=== PATIENT | female | born 1960 | race Caucasian/White ===

== ENCOUNTER → 2022-06-30 16:21 | Outpatient (CLI) | payer MEDICAID, SELFPAY ==
[2022-06-30 18:22] LABS: Basophils # 0.1 K/mm3 (0-0.2); Basophils % 0.5 % (0.1-2.0); Eosinophils # 0.1 K/mm3 (0.0-0.4); Eosinophils % 0.7 % (0.1-12.0); Hematocrit 41.1 % (37.0-47.0); Hemoglobin 13.5 g/dL (12.2-16.2); Lymphocytes # 1.6 K/mm3 (0.7-4.5); Lymphocytes % 13.2 % (10-50); Mean Corpuscular HGB Conc 32.7 g/dL (31.8-35.4); Mean Corpuscular Hemoglobin 28.9 pg (27.0-31.2); Mean Corpuscular Volume 88.3 fl (81-99); Mean Platelet Volume 8.1 fl (7.4-10.4); Monocytes # 0.7 K/mm3 (0.1-1.0); Monocytes % 5.6 % (1.7-9.3); Neutrophils # 9.4 K/mm3 (1.8-7.8); Platelet Count 428 K/mm3 (142-424); Red Blood Count 4.66 M/mm3 (4.20-5.40); Red Cell Distribution Width 14.5 % (11.5-17.5); White Blood Count 11.7 K/mm3 (4.8-10.8)
[2022-06-30 18:34] LABS: Alanine Aminotransferase 26 U/L (12-78); Albumin Level 4.3 g/dl (3.5-5.0); Albumin/Globulin Ratio 1.5 (1.1-1.8); Alkaline Phosphatase 127 U/L (38-126); Aspartate Amino Transferase 30 U/L (14-36); Bilirubin,Total 0.3 mg/dl (0.2-1.3); Blood Urea Nitrogen 15 mg/dl (7-17); Calcium 8.4 mg/dl (8.4-10.2); Carbon Dioxide 29 mmol/L (22.0-30.0); Chloride 106 mmol/L (98-107); Chol/HDL Ratio 6.4 (1-3.5); Cholesterol 211 mg/dl (140-200); Estimated Glomerular Filt Rate 46 ml/min (>60); GFR (African American) 55 ML/MIN (>60); Globulin 2.9 g/dL (1.3-3.2); Glucose 114 mg/dl (74-100); HDL Cholesterol 33 mg/dl (40-60); Sodium 142 mmol/L (136-145); Total Protein,Serum 7.2 g/dl (6.3-8.2)
[2022-06-30 18:58] LABS: Triglycerides 420 mg/dl (30-150)
[2022-07-02 12:37] LABS: Hep A Ab, Total Positive (Negative); Hep B Core Ab, Total Negative (Negative); Hep B Surface Ab, Qual Non Reactive (.)
[2022-07-03 22:16] LABS: HIV Screen 4th Generation wRfx NON REACTIVE; Hepatitis B Surface Antigen NON REACTIVE
[2022-07-03 22:17] LABS: Hepatitis C Antibody >11.0
== END ==
PROVIDERS: PCP Nurse Practitioner Family; Visit Provider Nurse Practitioner Family
DX: Z76.89 Persons encountering health services in other specified circumstances (principal); I10 Essential (primary) hypertension; J44.9 Chronic obstructive pulmonary disease, unspecified; R76.8 Other specified abnormal immunological findings in serum; Z11.4 Encounter for screening for human immunodeficiency virus [HIV]
CPT/HCPCS: 80053; 80061; 84443; 85025; 86703; 86704; 86706; 86708; 87086; 87340; 87380; 87522; G0432

== ENCOUNTER → 2022-07-14 15:46 | Outpatient (CLI) | payer MEDICAID, SELFPAY ==
--- NOTE | 2022-07-14 15:46 | MM_ITS ---
PROCEDURE INFORMATION: Exam: MG Bilateral Screening 3D Mammography Exam date and time: 07/14/2022 3:54 PM Age: 61 years old Clinical indication: Screening; however, notation regarding concern for left breast lump. No family history of breast cancer. TECHNIQUE: Imaging protocol: Bilateral Screening tomosynthesis and 2D mammography including computer-aided detection (CAD) when performed. COMPARISON: 1. MG SCRN MAMMO W/CAD BILAT 01/19/2017 9:03 AM 2. US BREAST COMP LT 01/19/2017 9:05 AM 3. US BREAST COMP LT 06/27/2016 3:21 PM FINDINGS: MAMMOGRAPHY: Breast composition: There are scattered areas of fibroglandular density. Mass: Possible oval mass in the right upper outer quadrant, 5-6 cm from the nipple, CC frame 18 and MLO frame 20. Architectural distortion: None. Calcifications: No suspicious calcifications. Asymmetric density: None. Skin thickening: None. Axillary adenopathy: None. IMPRESSION: Patient will be recalled for right sonography for further evaluation of possible right breast mass. Notation concern for left breast lump, if there is a palpable finding clinical concern, adding diagnostic mammography and sonography are suggested.Further evaluation of a palpable abnormality should be based on clinical grounds regardless of radiographic findings or lack thereof. ASSESSMENT: BI-RADS Category 0: Incomplete- Need Additional Imaging Evaluation and/or Prior Mammograms for Comparison
== END ==
PROVIDERS: PCP Nurse Practitioner Family; Visit Provider Nurse Practitioner Family
DX: Z12.31 Encounter for screening mammogram for malignant neoplasm of breast (principal); N63.20 Unspecified lump in the left breast, unspecified quadrant
CPT/HCPCS: 77063; 77067

== ENCOUNTER → 2022-08-11 13:57 | Outpatient (CLI) | payer MEDICAID, SELFPAY ==
--- NOTE | 2022-08-11 14:01 | US_ITS ---
PROCEDURE INFORMATION: Exam: US Left Breast, Complete Exam date and time: 08/11/2022 2:58 PM Age: 62 years old Clinical indication: Possible 5 mm oval mass detected in the right upper outer quadrant 5 cm from the nipple on screening mammogram 07/14/2022. Additionally: The patient reports left breast palpable lump. Bilateral breast ultrasound was requested for further assessment. Pain/tenderness in left axilla TECHNIQUE: Imaging protocol: Complete ultrasound of all four quadrants of the Left breast and the retroareolar regions, including ultrasound of the axilla when performed. COMPARISON: US BREAST COMP LT 01/19/2017 9:05 AM FINDINGS: Breast: Only normal glandular structures are present. Along the 10 o'clock axis there is a incidental 3 mm cyst. No suspicious solid or cystic mass is present. No architectural distortion or shadowing is present. No axillary adenopathy is present. IMPRESSION: No sonographic evidence of malignancy. Annual mammographic screening is recommended unless otherwise clinically indicated. ASSESSMENT: BI-RADS category 2: Benign
--- NOTE | 2022-08-11 14:01 | US_ITS ---
PROCEDURE INFORMATION: Exam: US Right Breast, Complete Exam date and time: 08/11/2022 2:35 PM Age: 62 years old Clinical indication: Possible 5 mm oval mass detected in the right upper outer quadrant 5 cm from the nipple on screening mammogram 07/14/2022. Additionally: The patient reports left breast palpable lump. Bilateral breast ultrasound was requested for further assessment TECHNIQUE: Imaging protocol: Complete ultrasound of all four quadrants of the Right breast and the retroareolar regions, including ultrasound of the axilla when performed. COMPARISON: MG MM DIG SCREENING MAMM BI W/CAD 07/14/2022 3:54 PM FINDINGS: Breast: In the region of mammographic interest right upper outer breast, only normal glandular structures are present No suspicious solid or cystic mass is present. No benign-appearing solid or cystic mass is present. No architectural distortion or shadowing is present. No axillary adenopathy is present. IMPRESSION: No sonographic evidence of malignancy. Annual mammographic screening is recommended unless otherwise clinically indicated. ASSESSMENT: BI-RADS category 1: Negative
== END ==
PROVIDERS: PCP Nurse Practitioner Family; Visit Provider Nurse Practitioner Family
DX: R92.8 Other abnormal and inconclusive findings on diagnostic imaging of breast (principal)
CPT/HCPCS: 76641

== ENCOUNTER 2022-08-23 10:42 | Outpatient (RCR) | payer MEDICAID, SELFPAY ==
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
== END 2022-08-23 10:45 | disposition home or self-care (01) ==
LOC: PT 10:42
PROVIDERS: PCP Nurse Practitioner Family; Visit Provider Nurse Practitioner Family
DX: M54.50 Low back pain, unspecified (principal)
CPT/HCPCS: 97163

== ENCOUNTER 2022-09-29 09:35 | Day surgery (SDC) | payer MEDICAID, SELFPAY ==
[2022-09-27 11:17] VITALS: BMI 31.8
[2022-09-29 09:49] VITALS: BP 113/73; PULSE 91; RESP 18; TEMP 36.5; O2SAT 97
[2022-09-29 09:56] LABS: MANUAL DIFFERENTIAL MANUAL DIFFERENTIAL (MANUAL DIFF)
[2022-09-29 10:01] LABS: Basophils # 0.1 K/mm3 (0-0.2); Eosinophils # 0.1 K/mm3 (0.0-0.4); Eosinophils % 1.1 % (0.1-12.0); Hematocrit 46.6 % (37.0-47.0); Hemoglobin 14.6 g/dL (12.2-16.2); Lymphocytes # 1.9 K/mm3 (0.7-4.5); Lymphocytes % 21.5 % (10-50); Mean Corpuscular HGB Conc 31.4 g/dL (31.8-35.4); Mean Corpuscular Hemoglobin 27.6 pg (27.0-31.2); Mean Platelet Volume 7.6 fl (7.4-10.4); Monocytes # 0.5 K/mm3 (0.1-1.0); Monocytes % 5.3 % (1.7-9.3); Neutrophils # 6.4 K/mm3 (1.8-7.8); Neutrophils % 71.1 % (37.0-80.0); Platelet Count 467 K/mm3 (142-424); Red Cell Distribution Width 14.1 % (11.5-17.5)
[2022-09-29 10:08] LABS: Chloride 97 mmol/L (98-107); Sodium 139 mmol/L (136-145)
[2022-09-29 10:09] LABS: Potassium 3.3 mmoL/L (3.5-5.1)
[2022-09-29 10:11] LABS: Alanine Aminotransferase 43 U/L (12-78); Alkaline Phosphatase 152 U/L (38-126); Aspartate Amino Transferase 37 U/L (14-36); Bilirubin,Total 0.5 mg/dl (0.2-1.3); Blood Urea Nitrogen 11 mg/dl (7-17); Creatinine Clearance Estimated 68 mL/min (50-200); Estimated Glomerular Filt Rate 50 ml/min (>60); GFR (African American) 61 ML/MIN (>60)
[2022-09-29 10:12] LABS: Albumin Level 4.6 g/dl (3.5-5.0); Albumin/Globulin Ratio 1.5 (1.1-1.8); Anion Gap 15.3 mEq/L (5-15); Calcium 9.3 mg/dl (8.4-10.2); Carbon Dioxide 30 mmol/L (22.0-30.0); Glucose 112 mg/dl (74-100); Total Protein,Serum 7.6 g/dl (6.3-8.2)
[2022-09-29 10:13] LABS: INR 0.95 (0.9-1.1); Prothrombin Time 10.3 seconds (10.1-12.5)
--- NOTE | 2022-09-29 10:16 | EXP.ANES.CKL ---
[facility] Disclaimer: The information contained in this section may have been updated after the patient was seen, as this information can be updated by other users. Medical History Asthma COPD (chronic obstructive pulmonary disease) Hepatitis C History of gastroesophageal reflux (GERD) HTN (hypertension), benign Neuropathy Pneumonia Urinary tract infection Surgical History H/O removal of cyst History of cholecystectomy History of surgery Family History Other Asthma Bleeding disorder Coronary artery disease Diabetes Heart attack Hyperlipidemia Hypertension Stroke Social History Smoking Status: Current every day smoker tobacco type: cigarettes packs per day: 1 years smoked: 50 alcohol intake: never substance use type: former substance user current occupational status: unemployed Travel in the last 8 weeks: None caffeine: Yes [facility] Anesthesia Checklist Patient Identification Patient Identification: Arm Band Structural Data Admitted From: Home Planned Operative Procedure/s: Colonoscopy Consent for Planned Operative Procedure(s) Verified: Yes Verified Documents: Surgical Consent and History and Physical NPO Status Verified Time NPO: 00:00 Additional verifications Anesthesia Reactions: No Airway Assessment C-Spine Mobility Assessed: Yes TMJ Mobility Assessed: Yes Dentition: Poor Dentition Neurological Assessment Level of Consciousness: Awake and Alert Anesthesia Plan Anesthesia Risk discussed: Yes Anesthesia Plan: Verified ASA Class: III Anesthesia Type: MAC
[2022-09-29 10:46] LABS: Lymphocytes % 27 % (10-50); Monocytes % 4 % (2-9); Neutrophils % 69 % (42-76); Platelet Estimate Slight Increase; RBC Morphology Normal; Total Cells Counted 100
[2022-09-29 10:49] VITALS: O2SAT 98
[2022-09-29 11:35] VITALS: BP 124/49; PULSE 83; RESP 19; TEMP 36.6; O2SAT 93
--- NOTE | 2022-09-29 11:36 | HMH.SCOPE ---
Procedure: Date: 09/29/22 Patient Date of :: 1960 Procedure Performed:: Total colonoscopy to terminal ileum with polypectomy using snare, forceps, lesion removal using hot snare Indications:: Patient is a 62-year-old female from [facility]. She has a history of COPD, hypertension, hepatitis C. She is referred by Stephen Carmona for initial screening colonoscopy. She does have some constipation. Performing Provider:: Brody Cooley MD Referring Provider:: Stephen Carmona Sedation:: MAC sedation Procedure:: Patient history was obtained and appropriate physical examination was performed. Patient's medications and allergies were reviewed. Informed consent was obtained after explaining the benefits, alternatives, and risks of the procedure including, but not limited to, bleeding, perforation, missed lesions, and adverse reaction to anesthesia medications. Patient was transported to endoscopy procedure room. Patient was connected to monitoring devices. Throughout the procedure the patient's blood pressure, pulse, and oxygen saturations were monitored continuously. Patient identification and planned procedure were verified by the staff. Patient was positioned in lateral decubitus position. Digital anorectal exam was performed. Variable stiffness Olympus colonoscope was inserted and advanced under direct visualization to the cecum. Adequacy of the colonic preparation was noted. The colonoscope was advanced a short distance into the terminal ileum. The colonoscope was then slowly withdrawn while carefully examining the color, texture, anatomy, and integrity of the mucosoa circumferentially. Within the rectum retroflexion was performed. Colonoscope was then withdrawn. Findings:: There was some particulate liquid stool but good visualization was achieved with irrigation and suctioning. In the cecum in the periappendiceal location there was an adenomatous appearing polyp removed with cold snare with residual tissue removed with biopsy forceps. In the descending colon there was a submucosal lesion which was removed with hot snare. It was retrieved with a De La Garza net. This was just distal to the splenic flexure. Colonoscope was then reinserted to this location. There was a polyp versus tiny submucosal lesion in the sigmoid which was removed with hot snare. She had numerous rectosigmoid hyperplastic appearing polyps. These were removed with biopsy forceps sampling a large portion of them. Retroflexion revealed internal anal papilla and minimal hemorrhoids. Impression: Adenomatous appearing periappendiceal polyp Descending submucosal lesion, probable lipoma Sessile submucosal lesion versus polyp in the sigmoid removed with hot snare Numerous rectosigmoid polyps consistent with hyperplastic Sigmoid diverticulosis Recommendations:: Follow-up colonoscopy pending pathology Complications:: None immediately apparent Estimated blood obtained (mL): 2
[2022-09-29 11:45] VITALS: BP 117/65; PULSE 80; RESP 16; O2SAT 99
[2022-09-29 11:55] VITALS: BP 105/67; PULSE 83; RESP 19; O2SAT 99
[2022-09-29 12:05] VITALS: BP 107/61; PULSE 80; RESP 16; TEMP 36.6; O2SAT 98
== END 2022-09-29 12:05 | disposition home or self-care (01) ==
PROVIDERS: PCP Nurse Practitioner Family; Visit Provider Surgery
PROC: 0DJD8ZZ Inspection of Lower Intestinal Tract, Via Natural or Artificial Opening Endoscopic (ICD-10-PCS; CPT 45385; principal; 2022-09-29 10:30)
DX: K59.00 Constipation, unspecified (principal); D12.0 Benign neoplasm of cecum; D12.4 Benign neoplasm of descending colon; D12.5 Benign neoplasm of sigmoid colon; K57.30 Diverticulosis of large intestine without perforation or abscess without bleeding; F17.210 Nicotine dependence, cigarettes, uncomplicated; Z79.899 Other long term (current) drug therapy
CPT/HCPCS: 45385; 45380; 80053; 85007; 85014; 85018; 85048; 85049; 85610; J2704

== ENCOUNTER → 2023-03-14 12:00 | Outpatient (CLI) | payer MEDICAID, SELFPAY ==
[2023-03-14 19:00] LABS: Basophils % 0.4 % (0.1-2.0); Eosinophils # 0.1 K/mm3 (0.0-0.4); Eosinophils % 0.9 % (0.1-12.0); Hematocrit 44.9 % (37.0-47.0); Hemoglobin 14.3 g/dL (12.2-16.2); Lymphocytes # 1.8 K/mm3 (0.7-4.5); Lymphocytes % 17.9 % (10-50); Mean Corpuscular HGB Conc 31.7 g/dL (31.8-35.4); Mean Corpuscular Hemoglobin 27.2 pg (27.0-31.2); Mean Corpuscular Volume 85.9 fl (81-99); Mean Platelet Volume 8.1 fl (7.4-10.4); Monocytes # 0.6 K/mm3 (0.1-1.0); Monocytes % 6.2 % (1.7-9.3); Neutrophils # 7.6 K/mm3 (1.8-7.8); Neutrophils % 74.6 % (37.0-80.0); Platelet Count 464 K/mm3 (142-424); Red Blood Count 5.23 M/mm3 (4.20-5.40); Red Cell Distribution Width 14.9 % (11.5-17.5); White Blood Count 10.2 K/mm3 (4.8-10.8)
[2023-03-14 19:34] LABS: Alanine Aminotransferase 41 U/L (12-78); Albumin Level 4.5 g/dl (3.5-5.0); Albumin/Globulin Ratio 1.3 (1.1-1.8); Alkaline Phosphatase 122 U/L (38-126); Anion Gap 13.9 mEq/L (5-15); Aspartate Amino Transferase 34 U/L (14-36); Bilirubin,Total 0.2 mg/dl (0.2-1.3); Blood Urea Nitrogen 23 mg/dl (7-17); Calcium 9.4 mg/dl (8.4-10.2); Carbon Dioxide 28 mmol/L (22.0-30.0); Chloride 98 mmol/L (98-107); Chol/HDL Ratio 9.4 (1-3.5); Cholesterol 273 mg/dl (140-200); Estimated Glomerular Filt Rate 46 ml/min (>60); GFR (African American) 55 ML/MIN (>60); Globulin 3.4 g/dL (1.3-3.2); Glucose 184 mg/dl (74-100); HDL Cholesterol 29 mg/dl (40-60); Potassium 3.9 mmoL/L (3.5-5.1); Sodium 136 mmol/L (136-145); Total Protein,Serum 7.9 g/dl (6.3-8.2)
[2023-03-14 19:47] LABS: Triglycerides 655 mg/dl (30-150)
[2023-03-14 19:54] LABS: 25-OH Vitamin D, Total 25.8 ng/mL (30-100)
[2023-03-14 20:06] LABS: Thyroid Stimulating Hormone 2.74 uIU/mL (0.465-4.68)
[2023-03-14 21:33] LABS: Direct LDL Cholesterol 142.09 mg/dL (100-129)
== END ==
PROVIDERS: PCP Nurse Practitioner Family; Visit Provider Nurse Practitioner Family
DX: I10 Essential (primary) hypertension (principal); E55.9 Vitamin D deficiency, unspecified; Z79.899 Other long term (current) drug therapy
CPT/HCPCS: 80053; 80061; 82306; 84443; 85025

== ENCOUNTER 2023-07-10 15:24 | Outpatient (CLI) | payer MEDICAID, SELFPAY ==
--- NOTE | 2023-07-10 15:24 | CT_ITS ---
FINAL REPORT TECHNIQUE: Axial CT images were performed from the lung apices through the upper abdomen. Coronal reformats were submitted. This study was performed with techniques to keep radiation doses as low as reasonably achievable (ALARA). Individualized dose reduction techniques using automated exposure control or adjustment of mA and/or kV according to the patient's size were employed. CLINICAL HISTORY: COPD FINDINGS: There is no axillary adenopathy. There is no hilar or mediastinal mass or adenopathy. Heart size is normal. There is no pericardial or pleural effusion. No suspicious infiltrate or nodule is identified on lung window images. There is lipomatous hypertrophy of the interatrial septum. The patient is status post cholecystectomy. IMPRESSION: Lipomatous hypertrophy of the interatrial septal. Reviewed, Interpreted and Dictated by Brody Gonzalez III, MD Transcribed by Michelle Gupta Authenticated and [facility]
== END 2023-07-10 23:59 ==
LOC: RAD 15:24
PROVIDERS: PCP Nurse Practitioner Family; Visit Provider Internal Medicine Pulmonary Disease
DX: R06.02 Shortness of breath (principal); J44.9 Chronic obstructive pulmonary disease, unspecified; F17.210 Nicotine dependence, cigarettes, uncomplicated
CPT/HCPCS: 71250

== ENCOUNTER 2023-08-16 12:58 | Outpatient (CLI) | payer MEDICAID, SELFPAY | END 2023-08-16 23:59 | LOC: LAB.DROPOF 12:58 | PROVIDERS: PCP Nurse Practitioner Family; Visit Provider Nurse Practitioner Family | DX: R30.0 Dysuria (principal); R32 Unspecified urinary incontinence | CPT/HCPCS: 87086 ==

== ENCOUNTER 2023-08-21 11:19 | Emergency (ER) | payer MEDICAID, SELFPAY ==
[2023-08-21 11:40] VITALS: BP 128/80; PULSE 86; RESP 18; TEMP 36.6; O2SAT 94; BMI 33.3
--- NOTE | 2023-08-21 12:20 | EXP.UTC ---
Discharge Plan Disposition Patient Disposition: Home, Self-Care Condition: Good Prescriptions Prescriptions: New amoxicillin [amoxicillin] 875 mg tablet 875 mg PO Q12H Qty: 20 0RF benzonatate [benzonatate] 100 mg capsule 100 mg PO TIDP PRN (Reason: Cough) Qty: 30 0RF methylprednisolone 4 mg Tablets,Dose Pack 4 mg PO DIRECTED 6 Days Qty: 21 0RF Rx Instructions: Take 1 pack as directed for 6 days guaifenesin [Mucinex] 600 mg tablet extended release 12hr 600 - 1,200 mg PO BIDP PRN (Reason: Congestion) Qty: 30 0RF No Action oxybutynin chloride 10 mg tablet extended release 24hr 10 mg PO DAILY Qty: 30 2RF prednisone 20 mg tablet 20 mg PO BID 5 Days Qty: 10 0RF ipratropium-albuterol 0.5 mg-3 mg(2.5 mg base)/3 mL solution for nebulization 3 ml inhalation Q4-6H PRN (Reason: shortness of breath or wheezing) Qty: 90 2RF Dulera 100-5 mcg/actuation HFA aerosol inhaler 2 puff inhalation BID Qty: 13 3RF polyethylene glycol 3350 [ClearLax] 17 gram/dose powder See Rx Instructions .ROUTE .COMPLEX Qty: 238 1RF Dose Instruction: MIX 17 GRAMS (USING CAP) IN LIQUID AND DRINK ONCE DAILY Rx Instructions: MIX 17 GRAMS (USING CAP) IN LIQUID AND DRINK ONCE DAILY amlodipine 10 mg tablet See Rx Instructions .ROUTE .COMPLEX Qty: 90 0RF Dose Instruction: TAKE 1 TABLET BY MOUTH ONCE DAILY Rx Instructions: TAKE 1 TABLET BY MOUTH ONCE DAILY lisinopril-hydrochlorothiazide 20-25 mg tablet See Rx Instructions .ROUTE .COMPLEX Qty: 60 1RF Dose Instruction: TAKE 2 TABLETS BY MOUTH ONCE DAILY Rx Instructions: TAKE 2 TABLETS BY MOUTH ONCE DAILY albuterol sulfate [Ventolin HFA] 90 mcg/actuation HFA aerosol inhaler See Rx Instructions .ROUTE .COMPLEX Qty: 18 1RF Dose Instruction: INHALE 2 PUFFS BY MOUTH EVERY 6 HOURS NEEDED FOR SHORTNESS OF BREATH OR WHEEZING FOR COPD Rx Instructions: INHALE 2 PUFFS BY MOUTH EVERY 6 HOURS NEEDED FOR SHORTNESS OF BREATH OR WHEEZING FOR COPD atorvastatin 10 mg tablet See Rx Instructions .ROUTE .COMPLEX Qty: 90 1RF Dose Instruction: TAKE 1 TABLET BY MOUTH ONCE DAILY Rx Instructions: TAKE 1 TABLET BY MOUTH ONCE DAILY cyclobenzaprine 10 mg tablet See Rx Instructions .ROUTE .COMPLEX Qty: 60 0RF Dose Instruction: TAKE 1 TABLET BY MOUTH THREE TIMES A DAY NEEDED FOR MUSCLE SPASM MAY CAUSE DROWSINESS Rx Instructions: TAKE 1 TABLET BY MOUTH THREE TIMES A DAY NEEDED FOR MUSCLE SPASM MAY CAUSE DROWSINESS cholecalciferol (vitamin D3) 50 mcg (2,000 unit) capsule See Rx Instructions .ROUTE .COMPLEX Qty: 30 3RF Dose Instruction: TAKE 1 CAPSULE BY MOUTH ONCE DAILY Rx Instructions: TAKE 1 CAPSULE BY MOUTH ONCE DAILY Combivent Respimat 20-100 mcg/actuation mist See Rx Instructions .ROUTE .COMPLEX Qty: 4 1RF Dose Instruction: 1 PUFF INHALED BY MOUTH EVERY 6 HOURS Rx Instructions: 1 PUFF INHALED BY MOUTH EVERY 6 HOURS cholecalciferol (vitamin D3) 1,250 mcg (50,000 unit) capsule See Rx Instructions .ROUTE .COMPLEX Qty: 7 1RF Dose Instruction: TAKE 1 CAPSULE BY MOUTH EVERY WEEK Rx Instructions: TAKE 1 CAPSULE BY MOUTH EVERY WEEK omeprazole 40 mg capsule,delayed release(DR/EC) See Rx Instructions .ROUTE .COMPLEX Qty: 90 0RF Dose Instruction: TAKE 1 CAPSULE BY MOUTH ONCE DAILY Rx Instructions: TAKE 1 CAPSULE BY MOUTH ONCE DAILY Referrals Follow up/Referrals: Stephen Carmona APRN [Primary Care Provider] - See instructions Activity Restrictions/Add. Instructions Additional Instructions/Restrictions: Drink plenty of fluids. Take tylenol or ibuprofen for pain or fever. Take the medications as directed. Follow up with your regular doctor. GO TO THE ER FOR ANY WORSENING SYMPTOMS Clinical Impressions Clinical Impression: COPD exacerbation, Exposure to strep throat, Acute viral syndrome Instructions Patient Instructions: DI for Chronic Obstructive Pulmonary Disease, DI for Viral Syndrome Discharge ED Provider: Musa Dumont [facility] General Stated complaint: fevere,cough Time Seen by Provider: 08/21/23 11:53 History of Present Illness Provider Complaint: She states that for the past 4 days she has had worsening cough, chest congestion, sinus congestion, and malaise. Related Data Previous Rx's Medication Instructions Recorded ipratropium 0.5 mg-albuterol 3 mg 3 ml inhalation Q4-6H PRN 03/14/23 (2.5 mg base)/3 mL nebulization shortness of breath or wheezing soln #90 mL mometasone-formoterol HFA 100 2 puff inhalation BID COPD #13 03/28/23 mcg-5 mcg/actuation aerosol grams inhaler (Dulera) polyethylene glycol 3350 17 See Rx Instructions .Route 05/02/23 gram/dose oral powder (ClearLax) .COMPLEX #238 grams amlodipine 10 mg tablet See Rx Instructions .Route 06/12/23 .COMPLEX #90 tabs albuterol sulfate 90 mcg/actuation See Rx Instructions .Route 07/10/23 aerosol inhaler (Ventolin HFA) .COMPLEX #18 grams lisinopril 20 See Rx Instructions .Route 07/10/23 mg-hydrochlorothiazide 25 mg tablet .COMPLEX #60 tabs atorvastatin 10 mg tablet See Rx Instructions .Route 08/08/23 .COMPLEX #90 ea cholecalciferol (vitamin D3) 1,250 See Rx Instructions .Route 08/08/23 mcg (50,000 unit) capsule .COMPLEX #7 caps cholecalciferol (vitamin D3) 50 See Rx Instructions .Route 08/08/23 mcg (2,000 unit) capsule .COMPLEX #30 caps cyclobenzaprine 10 mg tablet See Rx Instructions .Route 08/08/23 .COMPLEX #60 tabs ipratropium 20 mcg-albuterol 100 See Rx Instructions .Route 08/08/23 mcg/actuation mist for inhalation .COMPLEX #4 grams (Combivent Respimat) omeprazole 40 mg capsule,delayed See Rx Instructions .Route 08/08/23 release .COMPLEX #90 caps oxybutynin chloride 10 mg 10 mg PO DAILY #30 tabs 08/16/23 tablet,extended release 24 hr prednisone 20 mg tablet 20 mg PO BID 5 days #10 tabs 08/16/23 amoxicillin 875 mg tablet 875 mg PO Q12H #20 tabs 08/21/23 benzonatate 100 mg capsule 100 mg PO TIDP PRN Cough #30 caps 08/21/23 guaifenesin 600 mg tablet, 600 - 1,200 mg PO BIDP PRN 08/21/23 extended release 12 hr (Mucinex) Congestion #30 tabs methylprednisolone 4 mg tablets in 4 mg PO DIRECTED 6 days #21 tabs 08/21/23 a dose pack Allergies Allergy/AdvReac Type Severity Reaction Status Date / Time NSAIDS (Non-Steroidal Allergy Intermediate Verified 08/16/23 11:22 Anti-Inflamma [NSAIDS (NON-STEROIDAL ANTI-INFLAMMA] codeine [CODEINE] Allergy Unknown Verified 08/16/23 11:22 tramadol [TRAMADOL] Allergy Unknown Verified 08/16/23 11:22 Milk Containing Products Allergy Verified 08/16/23 11:22 (Dairy) [Milk Containing Products] [facility] Disclaimer: The information contained in this section may have been updated after the patient was seen, as this information can be updated by other users. Medical History Asthma COPD (chronic obstructive pulmonary disease) COPD mixed type Encounter for screening for malignant neoplasm of lung Hepatitis C History of gastroesophageal reflux (GERD) HTN (hypertension), benign Neuropathy Pneumonia Smoking greater than 30 pack years Urinary tract infection Surgical History H/O removal of cyst History of cholecystectomy History of surgery NOSE SX X3 Family History Other Asthma Bleeding disorder Coronary artery disease Diabetes Heart attack Hyperlipidemia Hypertension Stroke Social History Smoking Status: Current every day smoker tobacco type: cigarettes packs per day: 1 years smoked: 50 alcohol intake: never current occupational status: unemployed Travel in the last 8 weeks: None caffeine: Yes ROS Obtained: Yes All systems reviewed & no additional complaints except as documented Constitutional Constitutional: Reports poor appetite Eyes Eyes: Reports system reviewed and no additional complaints, except as documented ENT Ears, Nose, Mouth, and Throat: Reports as per HPI Cardiovascular Cardiovascular: Reports system reviewed and no additional complaints, except as documented and Denies chest pain Respiratory Respiratory: Denies shortness of breath, Reports chest congestion, Reports cough, Denies stridor and Denies wheezing Gastrointestinal Gastrointestingal: Reports system reviewed and no additional complaints, except as documented; Denies abdominal pain, diarrhea or vomiting Musculoskeletal Musculoskeletal: Reports system reviewed and no additional complaints, except as documented and Denies arthralgias Integumentary/Breasts Skin/Breast: Reports system reviewed and no additional complaints, except as documented and Denies rash Neurologic Neurologic: Denies paresthesias Allergic/Immunologic Allergic/Immunologic: Denies wheezing Physical Exam General General appearance: alert and in no apparent distress Eye Eye exam: Present normal appearance, PERRL and EOMI ENT ENT exam: Present mucous membranes moist and normal external ear exam Expanded ENT Exam External ear exam: Present normal external inspection TM/Canal exam: Bilateral TM: erythema and bulging Nose exam: Absent sinus tenderness Nasal speculum exam: Bilateral: normal Mouth exam: Present normal external inspection; Absent drooling Teeth exam: Present normal inspection Throat exam: Present tonsillar erythema and tonsillomegaly Neck Neck exam: Present normal inspection, full ROM and trachea midline; Absent tenderness, lymphadenopathy or thyromegaly Chest Chest inspection: Present normal inspection and symmetric chest wall rise; Absent tenderness or rash Respiratory Respiratory exam: Present normal lung sounds bilaterally; Absent respiratory distress, wheezes, stridor or accessory muscle use Cardiovascular Cardiovascular exam: Present regular rate, normal rhythm and normal heart sounds Abdominal Exam Abdominal exam: Present soft; Absent distention, tenderness, guarding, rebound or rigidity Extremities Exam Extremities exam: Present normal inspection, full ROM and normal capillary refill; Absent tenderness or calf tenderness Back Exam Back exam: Present normal inspection and full ROM; Absent tenderness Neurological Exam Neurological exam: Present alert and oriented X3 Psychiatric Psychiatric exam: Present normal affect and normal mood Skin Skin exam: Present warm, dry, intact and normal color Lymphatic Lymphatic Findings: no adenopathy Medical Decision Making Medical Records Medical records reviewed: No I reviewed the patient's medical records. Cruz Inquiry Pt receiving controlled substance: No Lab Data Lab results reviewed: Yes I reviewed the patient's lab results.
[2023-08-21 12:45] LABS: UTC Influenza A Antigen Negative (Negative); UTC Influenza B Antigen Negative (Negative); UTC Strep Screen (Rapid) Negative (Negative)
[2023-08-21 13:03] VITALS: BP 128/80; PULSE 86; RESP 18; TEMP 36.6; O2SAT 94
== END 2023-08-21 13:03 | disposition home or self-care (01) ==
PROVIDERS: Emergency Provider Nurse Practitioner Family; PCP Nurse Practitioner Family
DX: J44.1 Chronic obstructive pulmonary disease with (acute) exacerbation (principal); R05.9 Cough, unspecified; R09.81 Nasal congestion; F17.210 Nicotine dependence, cigarettes, uncomplicated; I10 Essential (primary) hypertension; K21.9 Gastro-esophageal reflux disease without esophagitis; Z20.818 Contact with and (suspected) exposure to other bacterial communicable diseases
CPT/HCPCS: 87635; 87804; 87880; 99204; 99212; G0463

== ENCOUNTER 2023-09-11 12:19 | Emergency (ER) | payer MEDICAID, SELFPAY ==
[2023-09-11 12:30] VITALS: BP 107/67; PULSE 97; RESP 18; TEMP 37.1; O2SAT 95; BMI 32.7
[2023-09-11 13:00] LABS: Color,Urine Dark Yellow (Yellow)
[2023-09-11 13:01] LABS: Apearance,Urine Cloudy (Clear); Bilirubin,Urine Negative (Negative); Blood, Urine 1+ (Negative); Glucose,Urine (UA) Negative (Negative); Ketones,Urine Negative (Negative); PH,Urine 5.5 (5.0-8.5); Protein,Urine 3+ (Negative); UTC Leukocyte Esterase,Urine 1+ (Negative); UTC Nitrate,Urine Negative (Negative); Urobilinogen,Urine 1 EU/dl (0.2)
--- NOTE | 2023-09-11 13:02 | ED_ITS ---
Discharge Plan Disposition Patient Disposition: Home, Self-Care Condition: Good Prescriptions Prescriptions: New benzonatate 100 mg capsule 100 mg PO TID PRN (Reason: cough) Qty: 30 0RF cefdinir 300 mg capsule 300 mg PO BID Qty: 20 0RF No Action atorvastatin 10 mg tablet See Rx Instructions .ROUTE .COMPLEX Qty: 90 1RF Dose Instruction: TAKE 1 TABLET BY MOUTH ONCE DAILY Rx Instructions: TAKE 1 TABLET BY MOUTH ONCE DAILY cyclobenzaprine 10 mg tablet See Rx Instructions .ROUTE .COMPLEX Qty: 60 0RF Dose Instruction: TAKE 1 TABLET BY MOUTH THREE TIMES A DAY NEEDED FOR MUSCLE SPASM MAY CAUSE DROWSINESS Rx Instructions: TAKE 1 TABLET BY MOUTH THREE TIMES A DAY NEEDED FOR MUSCLE SPASM MAY CAUSE DROWSINESS cholecalciferol (vitamin D3) 50 mcg (2,000 unit) capsule See Rx Instructions .ROUTE .COMPLEX Qty: 30 3RF Dose Instruction: TAKE 1 CAPSULE BY MOUTH ONCE DAILY Rx Instructions: TAKE 1 CAPSULE BY MOUTH ONCE DAILY Combivent Respimat 20-100 mcg/actuation mist See Rx Instructions .ROUTE .COMPLEX Qty: 4 1RF Dose Instruction: 1 PUFF INHALED BY MOUTH EVERY 6 HOURS Rx Instructions: 1 PUFF INHALED BY MOUTH EVERY 6 HOURS omeprazole 40 mg capsule,delayed release(DR/EC) See Rx Instructions .ROUTE .COMPLEX Qty: 90 0RF Dose Instruction: TAKE 1 CAPSULE BY MOUTH ONCE DAILY Rx Instructions: TAKE 1 CAPSULE BY MOUTH ONCE DAILY amlodipine 10 mg tablet See Rx Instructions .ROUTE .COMPLEX Qty: 90 0RF Dose Instruction: TAKE 1 TABLET BY MOUTH ONCE DAILY Rx Instructions: TAKE 1 TABLET BY MOUTH ONCE DAILY ipratropium-albuterol 0.5 mg-3 mg(2.5 mg base)/3 mL solution for nebulization See Rx Instructions .ROUTE .COMPLEX Qty: 180 1RF Dose Instruction: INHALE THE CONTENTS OF 1 VIAL VIA NEBULIZER EVERY 4-6 HOURS NEEDED FOR SHORTNESS OF BREATH OR WHEEZING Rx Instructions: INHALE THE CONTENTS OF 1 VIAL VIA NEBULIZER EVERY 4-6 HOURS NEEDED FOR SHORTNESS OF BREATH OR WHEEZING polyethylene glycol 3350 [ClearLax] 17 gram/dose powder See Rx Instructions .ROUTE .COMPLEX Qty: 238 0RF Dose Instruction: MIX 17 GRAMS (USING CAP) IN LIQUID AND DRINK ONCE DAILY Rx Instructions: MIX 17 GRAMS (USING CAP) IN LIQUID AND DRINK ONCE DAILY Dulera 100-5 mcg/actuation HFA aerosol inhaler See Rx Instructions .ROUTE .COMPLEX Qty: 13 2RF Dose Instruction: INHALE 2 PUFFS BY MOUTH TWICE A DAY FOR COPD Rx Instructions: INHALE 2 PUFFS BY MOUTH TWICE A DAY FOR COPD albuterol sulfate [Ventolin HFA] 90 mcg/actuation HFA aerosol inhaler See Rx Instructions .ROUTE .COMPLEX Qty: 18 0RF Dose Instruction: INHALE 2 PUFFS BY MOUTH EVERY 6 HOURS NEEDED FOR SHORTNESS OF BREATH OR WHEEZING FOR COPD Rx Instructions: INHALE 2 PUFFS BY MOUTH EVERY 6 HOURS NEEDED FOR SHORTNESS OF BREATH OR WHEEZING FOR COPD lisinopril-hydrochlorothiazide 20-25 mg tablet See Rx Instructions .ROUTE .COMPLEX Qty: 60 0RF Dose Instruction: TAKE 2 TABLETS BY MOUTH ONCE DAILY Rx Instructions: TAKE 2 TABLETS BY MOUTH ONCE DAILY oxybutynin chloride 5 mg tablet See Rx Instructions .ROUTE .COMPLEX Qty: 30 0RF Dose Instruction: TAKE 1 TABLET BY MOUTH ONCE DAILY Rx Instructions: TAKE 1 TABLET BY MOUTH ONCE DAILY Referrals Follow up/Referrals: Stephen Carmona APRN [Primary Care Provider] - See instructions Activity Restrictions/Add. Instructions Additional Instructions/Restrictions: *Increase fluids. Water not Soda or Tea *Start antibiotic immediately and be sure to take as ordered for the FULL length of time although you should start to see improvement over the next 48 hours *Be SURE to follow up anytime for new or worsening symptoms with your family doctor. AND in 48 hours for urine culture results with your family doctor, if you do not have a doctor then you may call back to the [facility] for urine culture results and further treatment. We do recommend that you choose and establish care with a Primary Care Physician. ?AND follow up with them ?in 10-14 days to repeat UA to ensure infection is resolved and blood no longer present *Be sure to let your PCP know that we sent urine cultures from the [facility] so they can follow up to ensure that you area the on the correct antibiotic Call your doctor office and make appointment for 48 hours (2 days from today) ?to follow up and get the results of your urine culture and further treatment Clinical Impressions Clinical Impression: UTI (urinary tract infection) Instructions Patient Instructions: Urinary Tract Infection, Cefdinir Discharge ED Provider: Penelope Mchugh [facility] [place] HPI General Stated complaint: chills, JENKINS, diarrhea Mode of Arrival: Ambulatory Source of Information: Patient Limitations: No Limitations Time Seen by Provider: 09/11/23 13:02 Description of Symptoms (Recalled from Triage Doc. by RN): Pt's symptoms are back pain, diarrhea, nausea, fever, body aches, and pressure with urination. HEENT Symptoms (Recalled from RN notes): Yes Resp Symptoms (Recalled from RN notes): No Skin Symptoms (Recalled from RN notes): No MS Symptoms (Recalled from RN notes): No Functional Status (Recalled from RN notes): n/a History of Present Illness Provider Complaint: Patient states that she thinks she has a UTI and a cold or something States that she has been having nasal congestion, achy like feeling in her lower back and urgency and frequency with urination and feeling like she is going more than normal, scratchy throat body aches and head congestion States that several people in the house is sick Related Data Previous Rx's Medication Instructions Recorded atorvastatin 10 mg tablet See Rx Instructions .Route 08/08/23 .COMPLEX #90 ea cholecalciferol (vitamin D3) 50 See Rx Instructions .Route 08/08/23 mcg (2,000 unit) capsule .COMPLEX #30 caps cyclobenzaprine 10 mg tablet See Rx Instructions .Route 08/08/23 .COMPLEX #60 tabs ipratropium 20 mcg-albuterol 100 See Rx Instructions .Route 08/08/23 mcg/actuation mist for inhalation .COMPLEX #4 grams (Combivent Respimat) omeprazole 40 mg capsule,delayed See Rx Instructions .Route 08/08/23 release .COMPLEX #90 caps albuterol sulfate 90 mcg/actuation See Rx Instructions .Route 09/04/23 aerosol inhaler (Ventolin HFA) .COMPLEX #18 grams amlodipine 10 mg tablet See Rx Instructions .Route 09/04/23 .COMPLEX #90 tabs ipratropium 0.5 mg-albuterol 3 mg See Rx Instructions .Route 09/04/23 (2.5 mg base)/3 mL nebulization .COMPLEX #180 mL soln lisinopril 20 See Rx Instructions .Route 09/04/23 mg-hydrochlorothiazide 25 mg tablet .COMPLEX #60 tabs mometasone-formoterol HFA 100 See Rx Instructions .Route 09/04/23 mcg-5 mcg/actuation aerosol .COMPLEX #13 grams inhaler (Dulera) oxybutynin chloride 5 mg tablet See Rx Instructions .Route 09/04/23 .COMPLEX #30 tabs polyethylene glycol 3350 17 See Rx Instructions .Route 09/04/23 gram/dose oral powder (ClearLax) .COMPLEX #238 grams benzonatate 100 mg capsule 100 mg PO TID PRN cough #30 caps 09/11/23 cefdinir 300 mg capsule 300 mg PO BID #20 caps 09/11/23 Allergies Allergy/AdvReac Type Severity Reaction Status Date / Time NSAIDS (Non-Steroidal Allergy Intermediate Verified 09/11/23 12:50 Anti-Inflamma [NSAIDS (NON-STEROIDAL ANTI-INFLAMMA] codeine [CODEINE] Allergy Unknown Verified 09/11/23 12:50 tramadol [TRAMADOL] Allergy Unknown Verified 09/11/23 12:50 Milk Containing Products Allergy Verified 09/11/23 12:50 (Dairy) [Milk Containing Products] Worker's Comp Is this a Worker's Comp case?: No [facility] Disclaimer: The information contained in this section may have been updated after the patient was seen, as this information can be updated by other users. Medical History Asthma COPD (chronic obstructive pulmonary disease) COPD mixed type Encounter for screening for malignant neoplasm of lung Hepatitis C History of gastroesophageal reflux (GERD) HTN (hypertension), benign Neuropathy Pneumonia Smoking greater than 30 pack years Urinary tract infection Surgical History H/O removal of cyst History of cholecystectomy History of surgery NOSE SX X3 Family History Other Asthma Bleeding disorder Coronary artery disease Diabetes Heart attack Hyperlipidemia Hypertension Stroke Social History Smoking Status: Current every day smoker tobacco type: cigarettes packs per day: 1 years smoked: 50 alcohol intake: never current occupational status: unemployed Travel in the last 8 weeks: None caffeine: Yes ROS Obtained: Yes All systems reviewed & no additional complaints except as documented and Yes Systems reviewed as appropriate & no additional complaints except as documented Constitutional Constitutional: Reports system reviewed and no additional complaints, except as documented, Reports as per HPI, Reports body ache, Reports chills and Reports headache(s) ENT Ears, Nose, Mouth, and Throat: Reports system reviewed and no additional complaints, except as documented, Reports as per HPI, Reports headache(s), Reports nasal congestion, Reports sinus pressure and Reports sore throat Cardiovascular Cardiovascular: Reports system reviewed and no additional complaints, except as documented and Reports as per HPI Respiratory Respiratory: Reports system reviewed and no additional complaints, except as documented and Reports as per HPI Gastrointestinal Gastrointestingal: Reports system reviewed and no additional complaints, except as documented and as per HPI Genitourinary Female Genitourinary: Reports system reviewed and no additional complaints, except as documented, Reports as per HPI, Reports dysuria, Reports urinary frequency and Reports urinary urgency Musculoskeletal Musculoskeletal: Reports system reviewed and no additional complaints, except as documented, Reports as per HPI and Reports back pain (achy like feeling in back) Neurologic Neurologic: Reports headache(s) Physical Exam General General appearance: alert and in no apparent distress ENT ENT exam: Present mucous membranes moist Expanded ENT Exam Nose exam: Present sinus tenderness Throat exam: Present other (mild pharyngeal erythema noted with PND); Absent tonsillar exudate Respiratory Respiratory exam: Present normal lung sounds bilaterally; Absent respiratory distress or wheezes Cardiovascular Cardiovascular exam: Present regular rate, normal rhythm and normal heart sounds Neurological Exam Neurological exam: Present alert, oriented X3 and normal gait Medical Decision Making Cruz Inquiry Pt receiving controlled substance: No Cruz was queried for this patient: No Vital Signs: 09/11/23 12:30 Temperature 98.7 F Temperature Source Oral Pulse Rate [Right Radial] 97 H Respiratory Rate 18 Blood Pressure [Right Arm] 107/67 L Blood Pressure Mean [Right Arm] 80 Blood Pressure Source [Right Arm] Automatic Cuff Blood Pressure Position [Right Arm] Sitting 02 Sat by Pulse Oximetry 95 Oxygen Delivery Method Room Air Lab Data Lab results reviewed: Yes I reviewed the patient's lab results. Lab Results 09/11/23 12:58: Urine Color Dark yellow, Urine Appearance Cloudy, Urine pH 5.5, Ur Specific [place] 1.020, Urine Protein 3+, Urine Glucose (UA) Negative, Urine Ketones Negative, Urine Blood 1+, Urine Nitrate Negative, Urine Bilirubin Negative, Urine Urobilinogen 1, Ur Leukocyte Esterase 1+ A Orders (Tests/Meds): ORDERS Category Date Time Status Urine Culture Stat Micro 09/11/23 12:58 Ordered
--- NOTE | 2023-09-11 13:40 | PC.NURSE ---
Sent up full panel to lab
[2023-09-11 13:45] VITALS: BP 107/67; PULSE 97; RESP 18; TEMP 37.1; O2SAT 95
[2023-09-11 13:45] LABS: Adenovirus,PCR Not Detected (NotDetected); Coronavirus 19, PCR Not Detected (NotDetected); Coronavirus 229E Not Detected (NotDetected); Coronavirus NL63 Not Detected (NotDetected); Coronavirus OC43 Not Detected (NotDetected); Coronovirus HKU1,PCR Not Detected (NotDetected); Human Metapneumovirus Not Detected (NotDetected); Influenza A, PCR Not Detected (NotDetected); Influenza AH1, 2009 Not Detected (NotDetected); Influenza AH1, PCR Not Detected (NotDetected); Influenza AH3,PCR Not Detected (NotDetected); Influenza B, PCR Not Detected (NotDetected); Parainfluenza 1, PCR Not Detected (NotDetected); Parainfluenza 2, PCR Not Detected (NotDetected); Parainfluenza 3, PCR Not Detected (NotDetected); Parainfluenza 4, PCR Not Detected (NotDetected); Respiratory Syncytial Virus Not Detected (NotDetected); Rhinovirus/Enterovirus Not Detected (NotDetected)
== END 2023-09-11 13:45 | disposition home or self-care (01) ==
PROVIDERS: Emergency Provider Nurse Practitioner; PCP Nurse Practitioner Family
DX: N39.0 Urinary tract infection, site not specified (principal); M54.50 Low back pain, unspecified; R19.7 Diarrhea, unspecified; R11.0 Nausea; R50.9 Fever, unspecified; R39.15 Urgency of urination; R35.0 Frequency of micturition; J44.9 Chronic obstructive pulmonary disease, unspecified; I10 Essential (primary) hypertension; G62.9 Polyneuropathy, unspecified; F17.210 Nicotine dependence, cigarettes, uncomplicated
CPT/HCPCS: 81003; 87086; 87632; 87635; 99212; 99214; G0463

== ENCOUNTER 2023-10-04 12:06 | Outpatient (CLI) | payer MEDICAID, SELFPAY ==
--- NOTE | 2023-10-04 12:09 | XR_ITS ---
FINAL REPORT CLINICAL HISTORY: L Shoulder pain COMPARISON: None FINDINGS: LEFT SHOULDER: 3 views of the left shoulder were obtained. There is no acute fracture or dislocation. There is mild AC joint and moderate glenohumeral joint degenerative change. There is a probable loose body adjacent to the glenoid measuring 13 mm. There is no soft tissue abnormality. IMPRESSION: Mild and moderate degenerative changes without acute bony abnormality. Probable loose body adjacent to the glenoid. Reviewed, Interpreted and Dictated by Brody Gonzalez III, MD Transcribed by Deena Kessler Authenticated and [facility]
[2023-10-04 12:51] LABS: Basophils # 0.2 K/mm3 (0-0.2); Basophils % 2.5 % (0.1-2.0); Eosinophils # 0.2 K/mm3 (0.0-0.4); Eosinophils % 1.7 % (0.1-12.0); Hematocrit 44.1 % (37.0-47.0); Hemoglobin 13.8 g/dL (12.2-16.2); Lymphocytes # 1.7 K/mm3 (0.7-4.5); Lymphocytes % 18.8 % (10-50); Mean Corpuscular HGB Conc 31.3 g/dL (31.8-35.4); Mean Corpuscular Hemoglobin 28.6 pg (27.0-31.2); Mean Corpuscular Volume 91.3 fl (81-99); Mean Platelet Volume 7.9 fl (7.4-10.4); Monocytes # 0.4 K/mm3 (0.1-1.0); Monocytes % 4.9 % (1.7-9.3); Neutrophils # 6.4 K/mm3 (1.8-7.8); Platelet Count 344 K/mm3 (142-424); Red Blood Count 4.83 M/mm3 (4.20-5.40); Red Cell Distribution Width 15.5 % (11.5-17.5); White Blood Count 8.9 K/mm3 (4.8-10.8)
[2023-10-11 04:52] LABS: D001-IgE D pteronyssinus <0.10 kU/L (Class 0); D002-IgE D farinae <0.10 kU/L (Class 0); E001-IgE Cat Dander <0.10 kU/L (Class 0); E005-IgE Dog Dander <0.10 kU/L (Class 0); E072-IgE Mouse Urine <0.10 kU/L (Class 0); G002-IgE Bermuda Grass <0.10 kU/L (Class 0); G006-IgE Timothy Grass <0.10 kU/L (Class 0); I006-IgE Cockroach, German <0.10 kU/L (Class 0); Immunoglobulin E, Total 75 IU/mL (6-495); M001-IgE Penicillium chrysogen <0.10 kU/L (Class 0); M002-IgE Cladosporium herbarum <0.10 kU/L (Class 0); M003-IgE Aspergillus fumigatus <0.10 kU/L (Class 0); M006-IgE Alternaria alternata <0.10 kU/L (Class 0); T001-IgE Maple/Box Elder <0.10 kU/L (Class 0); T003-IgE Common Silver Birch <0.10 kU/L (Class 0); T006-IgE Cedar, Mountain <0.10 kU/L (Class 0); T007-IgE Oak, White <0.10 kU/L (Class 0); T008-IgE Elm, American <0.10 kU/L (Class 0); T010-IgE Walnut <0.10 kU/L (Class 0); T011-IgE Maple Leaf Sycamore <0.10 kU/L (Class 0); T014-IgE Cottonwood <0.10 kU/L (Class 0); T015-IgE Ash, White <0.10 kU/L (Class 0); T022-IgE Pecan, Hickory <0.10 kU/L (Class 0); T070-IgE White Mulberry <0.10 kU/L (Class 0); W001-IgE Ragweed, Short <0.10 kU/L (Class 0); W011-IgE Thistle, Russian <0.10 kU/L (Class 0); W014-IgE Pigweed, Common <0.10 kU/L (Class 0); W018-IgE Sheep Sorrel <0.10 kU/L (Class 0)
== END 2023-10-04 23:59 ==
LOC: LAB 12:07
PROVIDERS: Internal Medicine Pulmonary Disease; PCP Nurse Practitioner Family; Visit Provider Nurse Practitioner Family
DX: M25.512 Pain in left shoulder (principal); J45.909 Unspecified asthma, uncomplicated
CPT/HCPCS: 36415; 73030; 82785; 85025; 86003

== ENCOUNTER 2023-11-08 14:30 | Inpatient (IN) | payer MEDICAID, SELFPAY ==
[2023-11-08] VITALS (15 sets, daily range): BP systolic 108–148; BP diastolic 50–109; PULSE 89–102; RESP 15–24; TEMP 36.4–36.6; O2SAT 89–100; BMI 31.8; BMI 32.1
--- NOTE | 2023-11-08 14:38 | ED_ITS ---
<Statement entered by Aleks Delgado MD - 11/08/23 17:01> I was consulted by the GERRY, and we discussed the complexity of the problems being addressed. I approved the treatment and management plan for this patient's care in the emergency department, thus performing a substantive portion of the medical decision making. The patient has new onset diabetes with HHS and was treated with fluid resuscitation, insulin bolus followed by insulin infusion. Aleks Delgado MD Discharge Plan Disposition Patient Disposition: Admitted Condition: Serious Prescriptions Prescriptions: No Action atorvastatin 10 mg tablet See Rx Instructions .ROUTE .COMPLEX Qty: 90 1RF Dose Instruction: TAKE 1 TABLET BY MOUTH ONCE DAILY Rx Instructions: TAKE 1 TABLET BY MOUTH ONCE DAILY Dulera 100-5 mcg/actuation HFA aerosol inhaler See Rx Instructions .ROUTE .COMPLEX Qty: 13 2RF Dose Instruction: INHALE 2 PUFFS BY MOUTH TWICE A DAY FOR COPD Rx Instructions: INHALE 2 PUFFS BY MOUTH TWICE A DAY FOR COPD amlodipine 10 mg tablet See Rx Instructions .ROUTE .COMPLEX Qty: 90 0RF Dose Instruction: TAKE 1 TABLET BY MOUTH ONCE DAILY Rx Instructions: TAKE 1 TABLET BY MOUTH ONCE DAILY polyethylene glycol 3350 [ClearLax] 17 gram/dose powder See Rx Instructions .ROUTE .COMPLEX Qty: 238 0RF Dose Instruction: MIX 17 GRAMS (USING CAP) IN LIQUID AND DRINK ONCE DAILY Rx Instructions: MIX 17 GRAMS (USING CAP) IN LIQUID AND DRINK ONCE DAILY cyclobenzaprine 10 mg tablet See Rx Instructions .ROUTE .COMPLEX Qty: 60 0RF Dose Instruction: TAKE 1 TABLET BY MOUTH THREE TIMES A DAY NEEDED FOR MUSCLE SPASM MAY CAUSE DROWSINESS Rx Instructions: TAKE 1 TABLET BY MOUTH THREE TIMES A DAY NEEDED FOR MUSCLE SPASM MAY CAUSE DROWSINESS ipratropium-albuterol 0.5 mg-3 mg(2.5 mg base)/3 mL solution for nebulization See Rx Instructions .ROUTE .COMPLEX Qty: 180 0RF Dose Instruction: INHALE THE CONTENTS OF 1 VIAL VIA NEBULIZER EVERY 4-6 HOURS NEEDED FOR SHORTNESS OF BREATH OR WHEEZING Rx Instructions: INHALE THE CONTENTS OF 1 VIAL VIA NEBULIZER EVERY 4-6 HOURS NEEDED FOR SHORTNESS OF BREATH OR WHEEZING omeprazole 40 mg capsule,delayed release(DR/EC) See Rx Instructions .ROUTE .COMPLEX Qty: 90 0RF Dose Instruction: TAKE 1 CAPSULE BY MOUTH ONCE DAILY Rx Instructions: TAKE 1 CAPSULE BY MOUTH ONCE DAILY lisinopril-hydrochlorothiazide 20-25 mg tablet See Rx Instructions .ROUTE .COMPLEX Qty: 60 0RF Dose Instruction: TAKE 2 TABLETS BY MOUTH ONCE DAILY Rx Instructions: TAKE 2 TABLETS BY MOUTH ONCE DAILY Combivent Respimat 20-100 mcg/actuation mist See Rx Instructions .ROUTE .COMPLEX Qty: 4 0RF Dose Instruction: INHALE 1 PUFF EVERY 6 HOURS DIRECTED Rx Instructions: INHALE 1 PUFF EVERY 6 HOURS DIRECTED oxybutynin chloride 10 mg tablet extended release 24hr See Rx Instructions .ROUTE .COMPLEX Qty: 30 1RF Dose Instruction: TAKE 1 TABLET BY MOUTH ONCE DAILY Rx Instructions: TAKE 1 TABLET BY MOUTH ONCE DAILY cholecalciferol (vitamin D3) 1,250 mcg (50,000 unit) capsule See Rx Instructions .ROUTE .COMPLEX Qty: 7 0RF Dose Instruction: TAKE 1 CAPSULE BY MOUTH EVERY WEEK Rx Instructions: TAKE 1 CAPSULE BY MOUTH EVERY WEEK benzonatate 100 mg capsule 100 mg PO TID PRN (Reason: cough) Qty: 30 0RF cefdinir 300 mg capsule 300 mg PO BID Qty: 20 0RF Referrals Follow up/Referrals: Stephen Carmona APRN [Primary Care Provider] - See instructions Clinical Impressions Clinical Impression: Uncontrolled type 2 DM with hyperosmolar nonketotic hyperglycemia, Leukocytosis, Pseudohyponatremia, Acute nontraumatic kidney injury, Abdominal pain, right lower quadrant, Nausea vomiting and diarrhea Instructions Patient Instructions: DI for Acute Abdominal Pain Discharge ED Provider: Aleks Delgado General Adult HPI <AMRIK Jean Baptiste - Last Filed: 11/08/23 16:36> General Chief complaint: Abdominal Pain Stated complaint: Vomiting, diarrhea, pain in right side Time Seen by Provider: 11/08/23 14:34 History of Present Illness HPI narrative: Patient presents for evaluation of nausea vomiting and right lower quadrant abdominal pain. Patient gives a history of nausea diarrhea and right lower quadrant abdominal pain for the last 6 days. However the last 24 hours patient reports that she started vomiting and the pain got worse so she came in for evaluation. Patient denies chest pain fever chills hemoptysis hematochezia melena hematemesis hematuria. She denies dysuria. Patient has had diagnostic laparoscopy and a cholecystectomy previously. Related Data Previous Rx's Medication Instructions Recorded atorvastatin 10 mg tablet See Rx Instructions .Route 08/08/23 .COMPLEX #90 ea mometasone-formoterol HFA 100 See Rx Instructions .Route 09/04/23 mcg-5 mcg/actuation aerosol .COMPLEX #13 grams inhaler (Dulera) benzonatate 100 mg capsule 100 mg PO TID PRN cough #30 caps 09/11/23 cefdinir 300 mg capsule 300 mg PO BID #20 caps 09/11/23 amlodipine 10 mg tablet See Rx Instructions .Route 10/04/23 .COMPLEX #90 tabs cholecalciferol (vitamin D3) 1,250 See Rx Instructions .Route 10/30/23 mcg (50,000 unit) capsule .COMPLEX #7 caps cyclobenzaprine 10 mg tablet See Rx Instructions .Route 10/30/23 .COMPLEX #60 tabs ipratropium 0.5 mg-albuterol 3 mg See Rx Instructions .Route 10/30/23 (2.5 mg base)/3 mL nebulization .COMPLEX #180 mL soln ipratropium 20 mcg-albuterol 100 See Rx Instructions .Route 10/30/23 mcg/actuation mist for inhalation .COMPLEX #4 grams (Combivent Respimat) lisinopril 20 See Rx Instructions .Route 10/30/23 mg-hydrochlorothiazide 25 mg tablet .COMPLEX #60 tabs omeprazole 40 mg capsule,delayed See Rx Instructions .Route 10/30/23 release .COMPLEX #90 caps oxybutynin chloride 10 mg See Rx Instructions .Route 10/30/23 tablet,extended release 24 hr .COMPLEX #30 tabs polyethylene glycol 3350 17 See Rx Instructions .Route 10/30/23 gram/dose oral powder (ClearLax) .COMPLEX #238 grams Allergies Allergy/AdvReac Type Severity Reaction Status Date / Time NSAIDS (Non-Steroidal Allergy Intermediate Verified 11/01/23 09:45 Anti-Inflamma [NSAIDS (NON-STEROIDAL ANTI-INFLAMMA] codeine [CODEINE] Allergy Unknown Verified 11/01/23 09:45 tramadol [TRAMADOL] Allergy Unknown Verified 11/01/23 09:45 Milk Containing Products Allergy Verified 11/01/23 09:45 (Dairy) [Milk Containing Products] [facility] <AMRIK Jean Baptiste - Last Filed: 11/08/23 16:36> [facility] Disclaimer: The information contained in this section may have been updated after the patient was seen, as this information can be updated by other users. Medical History Abnormal chest CT Encounter for screening for malignant neoplasm of lung COPD mixed type Smoking greater than 30 pack years Urinary tract infection Pneumonia History of gastroesophageal reflux (GERD) Neuropathy Hepatitis C Asthma COPD (chronic obstructive pulmonary disease) HTN (hypertension), benign Surgical History History of surgery NOSE SX X3 History of cholecystectomy H/O removal of cyst Family History Other Asthma Bleeding disorder Coronary artery disease Diabetes Heart attack Hyperlipidemia Hypertension Stroke Social History Smoking Status: Unknown if ever smoked years smoked: 50 alcohol intake: never current occupational status: unemployed Travel in the last 8 weeks: None caffeine: Yes <AMRIK Jean Baptiste - Last Filed: 11/08/23 16:36> ROS Obtained: Yes Systems reviewed as appropriate & no additional complaints except as documented Physical Exam <AMRIK Jean Baptiste - Last Filed: 11/08/23 16:36> General General appearance: alert and in no apparent distress Head Head exam: atraumatic Eye Eye exam: Present normal appearance ENT ENT exam: Present normal exam Neck Neck exam: Present normal inspection Chest Chest inspection: Present normal inspection Respiratory Respiratory exam: Present normal lung sounds bilaterally Cardiovascular Cardiovascular exam: Present regular rate, normal rhythm and normal heart sounds Abdominal Exam Abdominal exam: Present soft, tenderness (Tenderness to palpation in the right lower quadrant focally but no peritoneal signs) and normal bowel sounds; Absent guarding or rebound Extremities Exam Extremities exam: Present normal inspection and full ROM Back Exam Back exam: Present normal inspection and full ROM Neurological Exam Neurological exam: Present alert and oriented X3 Psychiatric Psychiatric exam: Present normal affect and normal mood Skin Skin exam: Present warm, dry and normal color Medical Decision Making <AMRIK Jean Baptiste - Last Filed: 11/08/23 16:36> Medical Records Medical records reviewed: Yes I reviewed the patient's medical records. Cruz Inquiry Pt receiving controlled substance: No Vital Signs: 11/08/23 14:32 11/08/23 15:11 11/08/23 15:30 Temperature 97.6 F Temperature Source Oral Pulse Rate 93 H 93 H Pulse Rate [Radial] 102 H Respiratory Rate 16 Blood Pressure 121/70 148/79 H Blood Pressure [Right Arm] 140/109 H Blood Pressure Mean 94 93 Blood Pressure Mean [Right Arm] 119 Blood Pressure Source [Right Arm] Automatic Cuff Blood Pressure Position [Right Arm] Sitting 02 Sat by Pulse Oximetry 95 91 L 95 Oxygen Delivery Method Room Air Lab Data Lab results reviewed: Yes I reviewed the patient's lab results. Lab Results 11/08/23 14:40: WBC 15.8 H, RBC 5.70 H, Hgb 16.2, Hct 51.4 H, MCV 90.1, MCH 28.4, MCHC 31.5 L, RDW 14.9, Plt Count 452 H, MPV 8.5, Neut % (Auto) 88.3 H, L ymph % (Auto) 8.6 L, [place] % (Auto) 2.7, Eos % (Auto) 0.1, Baso % (Auto) 0.2, N eut # (Auto) 14.0 H, Lymph # (Auto) 1.4, [place] # (Auto) 0.4, Eos # (Auto) 0.0, Baso # (Auto) 0.0, Total Counted 100, Neutrophils % (Manual) 83 H, Lymphocytes % (Manual) 16, Monocytes % (Manual) 1 L, Platelet Estimate Normal, RBC Morphology Normal, PT 10.2, INR 0.94, Sodium 120 L, Potassium 5.0, Chloride 85 L, Carbon Dioxide 19 L, Anion Gap 21.0 H, BUN 71 H, Creatinine 2.10 H, Estimated Creat Clear 35, Estimated GFR 24 L, Est GFR ( Amer) 29 L, Glucose 794 H*, L actate 2.3 H, Calcium 9.7, Phosphorus 6.3 H, Magnesium 2.2, Total Bilirubin 1.0, AST 49 H, ALT 51, Alkaline Phosphatase 139 H, Total Protein 8.1, Albumin 4.8, G lobulin 3.3 H, Albumin/Globulin Ratio 1.5, Lipase 165, Procalcitonin 0.267, Acetone Level None detected 11/08/23 14:58: Urine Color Yellow, Urine Appearance Clear, Urine pH 5.5, Ur Specific Emerson 1.020, Urine Protein Negative, Urine Glucose (UA) 3+, Urine Ketones Negative, Urine Blood 1+, Urine Nitrate Negative, Urine Bilirubin Negative, Urine Urobilinogen 0.2, Ur Leukocyte Esterase Negative, Urine RBC 3-5, Urine WBC Occasional, Ur Squamous Epith Cells Occasional, Urine Bacteria Trace 11/08/23 15:20: VBG pH 7.30 L, VBG pCO2 38.4, VBG pO2 52.2 H, VBG HCO3 18.3 L, V BG Total CO2 19.5 L, VBG O2 Saturation 84.1 H, VBG Base Excess -8.2 L, VBG Lactic Acid 3.6 H 11/08/23 14:40 11/08/23 14:40 Orders (Tests/Meds): ED MEDICATIONS Generic Name Dose Route Start Last Admin Trade Name Freq PRN Reason Stop Dose Admin Dextrose 50 ml 11/08/23 16:35 Dextrose 50% 50ml Syringe (Crash Cart) IVP 12/08/23 16:34 NEEDED PRN Per DKA Protocol Insulin Human Regular 100 unit 101 mls @ 8.08 mls/hr 11/08/23 16:00 11/08/23 16:26 / Sodium Chloride IV 12/08/23 15:59 8 unit/hr .[id number] TRENT 8.08 mls/hr Administration Protocol 8 UNIT/HR Sodium Chloride 1,000 mls @ 150 mls/hr 11/08/23 16:45 Sod Chlor 0.9% 1000ml Bag IV 12/08/23 16:44 .[id number] [facility] Discontinued Medications Generic Name Dose Route Start Last Admin Trade Name Freq PRN Reason Stop Dose Admin Acetaminophen 1,000 mg 11/08/23 14:39 11/08/23 15:05 Acetaminophen 1,000mg/100ml Vial IV 11/08/23 14:40 1,000 mg ONCE ONE Administration Hydromorphone HCl 0.5 mg 11/08/23 15:01 11/08/23 15:08 Hydromorphone 2mg/Ml Syringe IV 11/08/23 15:02 0.5 mg ONCE ONE Administration Lactated Ringer's 1,000 mls @ 999 mls/hr 11/08/23 14:39 11/08/23 15:05 Lactated Ringer's 1000 Ml Bag IV 11/08/23 15:39 999 mls/hr .Q1H1M ONE Administration Lactated Ringer's 1,000 mls @ 999 mls/hr 11/08/23 15:31 Lactated Ringer's 1000 Ml Bag IV 11/08/23 16:31 .Q1H1M ONE Insulin Human Regular 10 unit 11/08/23 15:24 11/08/23 15:39 Insulin Human Regular 100 Units/Ml 10ml Vial IVP 11/08/23 15:25 10 unit ONCE ONE Administration Ondansetron HCl 4 mg 11/08/23 14:39 11/08/23 15:04 Ondansetron 4mg Odt SL 11/08/23 14:40 Not Given ONCE ONE Ondansetron HCl 4 mg 11/08/23 15:13 11/08/23 15:16 Ondansetron 4mg/2ml Vial IV 11/08/23 15:14 4 mg ONCE ONE Administration ORDERS Category Date Time Status CT abdomen pelvis wo con Stat Cat Scan 11/08/23 14:39 Completed Nutrition Consult [CONS] Routine Cons 11/08/23 16:36 Active XR chest portable Stat Exams 11/08/23 15:46 Completed Acetone, Serum (Rapid) Stat Lab 11/08/23 14:40 Completed Basic Metabolic Panel Q4 Lab 11/08/23 16:45 Ordered Basic Metabolic Panel Q4 Lab 11/08/23 20:45 Ordered Basic Metabolic Panel Q4H Lab 11/09/23 00:45 Ordered Basic Metabolic Panel Q4H Lab 11/09/23 04:45 Ordered Basic Metabolic Panel Q4H Lab 11/09/23 08:45 Ordered Basic Metabolic Panel Q4 Lab 11/09/23 12:45 Ordered CBC w/Auto Diff [Complete Blood Count Auto Diff] Stat Lab 11/08/23 14:40 Completed CMP [Comprehensive Metabolic Panel] Stat Lab 11/08/23 14:40 Completed Complete Blood Count Auto Diff AMLAB Lab 11/09/23 06:00 Ordered Comprehensive Metabolic Panel AMLAB Lab 11/09/23 06:00 Ordered Diarrhea 23 Panel, PCR Stat Lab 11/08/23 14:39 Ordered Hemoglobin A1C Stat Lab 11/08/23 14:40 Received INR [Prothrombin Time INR] Stat Lab 11/08/23 14:40 Completed Lactic Acid Stat Lab 11/08/23 14:40 Completed Lipase Stat Lab 11/08/23 14:40 Completed Magnesium AMLAB Lab 11/09/23 06:00 Ordered Magnesium Q4H Lab 11/08/23 16:45 Ordered Magnesium Q4H Lab 11/08/23 20:45 Ordered Magnesium Q4H Lab 11/09/23 00:45 Ordered Magnesium Q4H Lab 11/09/23 04:45 Ordered Magnesium Q4H Lab 11/09/23 08:45 Ordered Magnesium Q4H Lab 11/09/23 12:45 Ordered Magnesium Stat Lab 11/08/23 14:40 Completed Phosphorous Q4H Lab 11/08/23 16:45 Ordered Phosphorous Q4H Lab 11/08/23 20:45 Ordered Phosphorous Q4H Lab 11/09/23 00:45 Ordered Phosphorous Q4H Lab 11/09/23 04:45 Ordered Phosphorous Q4H Lab 11/09/23 08:45 Ordered Phosphorous Q4H Lab 11/09/23 12:45 Ordered Phosphorous Stat Lab 11/08/23 14:40 Completed Procalcitonin Stat Lab 11/08/23 14:40 Completed UA [Urinalysis and Microscopic] Stat Lab 11/08/23 14:58 Completed Blood Culture Stat Micro 11/08/23 16:00 Received Urine Culture Stat Micro 11/08/23 Received VBG [Venous Blood Gas] Stat RT 11/08/23 15:20 Completed ECG Request Stat Y 11/08/23 15:46 Ordered Medical Decision Narrative: In summary patient is a 63-year-old female who presents to the emergency department for evaluation of nausea vomiting diarrhea and right lower quadrant abdominal pain. Patient is normotensive slightly tachycardic with a rate of 102 satting at 95% on room air breathing 16 times a minute upon arrival, with a temperature of 97.6. Physical exam is remarkable for mild tenderness to palpation of the right lower quadrant over McBurney's point but no peritoneal signs and normal bowel sounds. Differential diagnosis includes gastroenteritis, C. difficile, acute appendicitis, kidney stone, ovarian torsion etc. Initial workup will be conducted with blood cultures hematologic labs urinalysis CT scan abdomen pelvis with contrast. Initial interventions include crystalloid bolus and Tylenol as patient has had a unknown reported allergy to NSAIDs . Initial workup reviewed by me shows that the patient has hyperosmolar hyperglycemia syndrome with a blood sugar greater than 700, creatinine greater than 2, lactic acidosis, white count with a neutrophilic shift, normal potassium, negative acetone, venous pH is 7.30 and a gap of 21 sodium of 120 CO2 of 19 GFR 24 lipase of 165 with a potassium of 5 magnesium of 2.2 and my informal review of her CT scan of the abdomen shows no acute process. Upon repeat evaluation I have initiated patient on a insulin drip given her a second liter bolus IV push of 10 units of insulin. Given this I had interactive discussion about patient management with hospitalist and he has agreed to admission at 1635 <Aleks Delgado MD - Last Filed: 11/08/23 17:13> Vital Signs: 11/08/23 14:32 11/08/23 15:11 11/08/23 15:30 Temperature 97.6 F Temperature Source Oral Pulse Rate 93 H 93 H Pulse Rate [Radial] 102 H Respiratory Rate 16 Blood Pressure 121/70 148/79 H Blood Pressure [Right Arm] 140/109 H Blood Pressure Mean 94 93 Blood Pressure Mean [Right Arm] 119 Blood Pressure Source [Right Arm] Automatic Cuff Blood Pressure Position [Right Arm] Sitting 02 Sat by Pulse Oximetry 95 91 L 95 Oxygen Delivery Method Room Air Lab Data Lab Results 11/08/23 14:40: WBC 15.8 H, RBC 5.70 H, Hgb 16.2, Hct 51.4 H, MCV 90.1, MCH 28.4, MCHC 31.5 L, RDW 14.9, Plt Count 452 H, MPV 8.5, Neut % (Auto) 88.3 H, L ymph % (Auto) 8.6 L, [place] % (Auto) 2.7, Eos % (Auto) 0.1, Baso % (Auto) 0.2, N eut # (Auto) 14.0 H, Lymph # (Auto) 1.4, [place] # (Auto) 0.4, Eos # (Auto) 0.0, Baso # (Auto) 0.0, Total Counted 100, Neutrophils % (Manual) 83 H, Lymphocytes % (Manual) 16, Monocytes % (Manual) 1 L, Platelet Estimate Normal, RBC Morphology Normal, PT 10.2, INR 0.94, Sodium 120 L, Potassium 5.0, Chloride 85 L, Carbon Dioxide 19 L, Anion Gap 21.0 H, BUN 71 H, Creatinine 2.10 H, Estimated Creat Clear 35, Estimated GFR 24 L, Est GFR ( Amer) 29 L, Glucose 794 H*, L actate 2.3 H, Calcium 9.7, Phosphorus 6.3 H, Magnesium 2.2, Total Bilirubin 1.0, AST 49 H, ALT 51, Alkaline Phosphatase 139 H, Total Protein 8.1, Albumin 4.8, G lobulin 3.3 H, Albumin/Globulin Ratio 1.5, Lipase 165, Procalcitonin 0.267, Acetone Level None detected 11/08/23 14:58: Urine Color Yellow, Urine Appearance Clear, Urine pH 5.5, Ur Specific Emerson 1.020, Urine Protein Negative, Urine Glucose (UA) 3+, Urine Ketones Negative, Urine Blood 1+, Urine Nitrate Negative, Urine Bilirubin Negative, Urine Urobilinogen 0.2, Ur Leukocyte Esterase Negative, Urine RBC 3-5, Urine WBC Occasional, Ur Squamous Epith Cells Occasional, Urine Bacteria Trace 11/08/23 15:20: VBG pH 7.30 L, VBG pCO2 38.4, VBG pO2 52.2 H, VBG HCO3 18.3 L, V BG Total CO2 19.5 L, VBG O2 Saturation 84.1 H, VBG Base Excess -8.2 L, VBG Lactic Acid 3.6 H Orders (Tests/Meds): ED MEDICATIONS Generic Name Dose Route Start Last Admin Trade Name Freq PRN Reason Stop Dose Admin Dextrose 50 ml 11/08/23 16:35 Dextrose 50% 50ml Syringe (Crash Cart) IVP 12/08/23 16:34 NEEDED PRN Per DKA Protocol Insulin Human Regular 100 unit 101 mls @ 8.08 mls/hr 11/08/23 16:00 11/08/23 16:26 / Sodium Chloride IV 12/08/23 15:59 8 unit/hr .[id number] TRENT 8.08 mls/hr Administration Protocol 8 UNIT/HR Sodium Chloride 1,000 mls @ 150 mls/hr 11/08/23 16:45 Sod Chlor 0.9% 1000ml Bag IV 12/08/23 16:44 .Q6H40M TRENT Discontinued Medications Generic Name Dose Route Start Last Admin Trade Name Freq PRN Reason Stop Dose Admin Acetaminophen 1,000 mg 11/08/23 14:39 11/08/23 15:05 Acetaminophen 1,000mg/100ml Vial IV 11/08/23 14:40 1,000 mg ONCE ONE Administration Hydromorphone HCl 0.5 mg 11/08/23 15:01 11/08/23 15:08 Hydromorphone 2mg/Ml Syringe IV 11/08/23 15:02 0.5 mg ONCE ONE Administration Lactated Ringer's 1,000 mls @ 999 mls/hr 11/08/23 14:39 11/08/23 15:05 Lactated Ringer's 1000 Ml Bag IV 11/08/23 15:39 999 mls/hr .Q1H1M ONE Administration Lactated Ringer's 1,000 mls @ 999 mls/hr 11/08/23 15:31 Lactated Ringer's 1000 Ml Bag IV 11/08/23 16:31 .Q1H1M ONE Insulin Human Regular 10 unit 11/08/23 15:24 11/08/23 15:39 Insulin Human Regular 100 Units/Ml 10ml Vial IVP 11/08/23 15:25 10 unit ONCE ONE Administration Ondansetron HCl 4 mg 11/08/23 14:39 11/08/23 15:04 Ondansetron 4mg Odt SL 11/08/23 14:40 Not Given ONCE ONE Ondansetron HCl 4 mg 11/08/23 15:13 11/08/23 15:16 Ondansetron 4mg/2ml Vial IV 11/08/23 15:14 4 mg ONCE ONE Administration ORDERS Category Date Time Status CT abdomen pelvis wo con Stat Cat Scan 11/08/23 14:39 Completed Nutrition Consult [CONS] Routine Cons 11/08/23 16:36 Active XR chest portable Stat Exams 11/08/23 15:46 Completed Acetone, Serum (Rapid) Stat Lab 11/08/23 14:40 Completed Basic Metabolic Panel Q4H Lab 11/08/23 16:45 Ordered Basic Metabolic Panel Q4H Lab 11/08/23 20:45 Ordered Basic Metabolic Panel Q4H Lab 11/09/23 00:45 Ordered Basic Metabolic Panel Q4H Lab 11/09/23 04:45 Ordered Basic Metabolic Panel Q4H Lab 11/09/23 08:45 Ordered Basic Metabolic Panel Q4H Lab 11/09/23 12:45 Ordered CBC w/Auto Diff [Complete Blood Count Auto Diff] Stat Lab 11/08/23 14:40 Completed CMP [Comprehensive Metabolic Panel] Stat Lab 11/08/23 14:40 Completed Complete Blood Count Auto Diff AMLAB Lab 11/09/23 06:00 Ordered Comprehensive Metabolic Panel AMLAB Lab 11/09/23 06:00 Ordered Diarrhea 23 Panel, PCR Stat Lab 11/08/23 14:39 Ordered Hemoglobin A1C Stat Lab 11/08/23 14:40 Received INR [Prothrombin Time INR] Stat Lab 11/08/23 14:40 Completed Lactic Acid Stat Lab 11/08/23 14:40 Completed Lipase Stat Lab 11/08/23 14:40 Completed Magnesium AMLAB Lab 11/09/23 06:00 Ordered Magnesium Q4H Lab 11/08/23 16:45 Ordered Magnesium Q4H Lab 11/08/23 20:45 Ordered Magnesium Q4H Lab 11/09/23 00:45 Ordered Magnesium Q4H Lab 11/09/23 04:45 Ordered Magnesium Q4H Lab 11/09/23 08:45 Ordered Magnesium Q4H Lab 11/09/23 12:45 Ordered Magnesium Stat Lab 11/08/23 14:40 Completed Phosphorous Q4H Lab 11/08/23 16:45 Ordered Phosphorous Q4H Lab 11/08/23 20:45 Ordered Phosphorous Q4H Lab 11/09/23 00:45 Ordered Phosphorous Q4H Lab 11/09/23 04:45 Ordered Phosphorous Q4H Lab 11/09/23 08:45 Ordered Phosphorous Q4H Lab 11/09/23 12:45 Ordered Phosphorous Stat Lab 11/08/23 14:40 Completed Procalcitonin Stat Lab 11/08/23 14:40 Completed UA [Urinalysis and Microscopic] Stat Lab 11/08/23 14:58 Completed Blood Culture Stat Micro 11/08/23 16:00 Received Urine Culture Stat Micro 11/08/23 Received VBG [Venous Blood Gas] Stat RT 11/08/23 15:20 Completed ECG Request Stat Y 11/08/23 15:46 Ordered ECG Data Tracing #1: Independently interpreted by Aleks Delgado, rate is 91, rhythm is regular, axis is normal, no ST elevation in anatomical contiguous leads QTc 441. Medical Decision Narrative: In summary patient is a 63-year-old female who presents to the emergency department for evaluation of nausea vomiting diarrhea and right lower quadrant abdominal pain. Patient is normotensive slightly tachycardic with a rate of 102 satting at 95% on room air breathing 16 times a minute upon arrival, with a temperature of 97.6. Physical exam is remarkable for mild tenderness to palpation of the right lower quadrant over McBurney's point but no peritoneal signs and normal bowel sounds. Differential diagnosis includes gastroenteritis, C. difficile, acute appendicitis, kidney stone, ovarian torsion etc. Initial workup will be conducted with blood cultures hematologic labs urinalysis CT scan abdomen pelvis with contrast. Initial interventions include crystalloid bolus and Tylenol as patient has had a unknown reported allergy to NSAIDs . Initial workup reviewed by me shows that the patient has hyperosmolar hyperglycemia syndrome with a blood sugar greater than 700, creatinine greater than 2, lactic acidosis, white count with a neutrophilic shift, normal potassium, negative acetone, venous pH is 7.30 and a gap of 21 sodium of 120 CO2 of 19 GFR 24 lipase of 165 with a potassium of 5 magnesium of 2.2 and my informal review of her CT scan of the abdomen shows no acute process. Upon repeat evaluation I have initiated patient on a insulin drip given her a second liter bolus IV push of 10 units of insulin. Given this I had interactive discussion about patient management with hospitalist and he has agreed to admission at 1635. Critical Care <AMRIK Jean Baptiste - Last Filed: 11/08/23 16:36> Critical Care Time Critical Care Time: No
--- NOTE | 2023-11-08 14:39 | CT_ITS ---
FINAL REPORT CLINICAL HISTORY: Nausea vomiting right lower quadrant abdominal jacklyn COMPARISON: None FINDINGS: Axial CT images of the abdomen and pelvis were obtained without intravenous contrast. Coronal and sagittal reformatted images were also obtained.This study was performed with techniques to keep radiation doses as low as reasonably achievable (ALARA). Individualized dose reduction techniques using automated exposure control or adjustment of mA and/or kV according to the patient's size were employed. Abdomen:The lung bases are clear. There is no evidence of renal stone or hydronephrosis. There is fatty infiltration of the liver. There is a right adrenal nodule measuring 16 mm in diameter, favor adenoma. The gallbladder has been surgically resected without evidence of biliary ductal dilatation. The spleen and pancreas have an unremarkable, unenhanced appearance. No mass or adenopathy is seen. No inflammatory process is identified. Moderate vascular calcifications are present. Pelvis: Images of the pelvis reveal no evidence of ureteral dilation or ureteral stone.No mass or abnormal fluid collection is identified. The appendix is normal in appearance. There is descending and sigmoid diverticulosis present in the colon. There is a left inguinal hernia containing fat. IMPRESSION: No renal or ureteral stone, or hydronephrosis. Fatty infiltration of the liver, post cholecystectomy. Right adrenal nodule, favor adenoma. Appendix is normal in appearance. Reviewed, Interpreted and Dictated by Brody Gonzalez III, MD Transcribed by Cyn Lowe Authenticated and [facility]
[2023-11-08 14:56] LABS: Basophils % 0.2 % (0.1-2.0); Eosinophils % 0.1 % (0.1-12.0); Hematocrit 51.4 % (37.0-47.0); Hemoglobin 16.2 g/dL (12.2-16.2); Lymphocytes # 1.4 K/mm3 (0.7-4.5); Lymphocytes % 8.6 % (10-50); Mean Corpuscular HGB Conc 31.5 g/dL (31.8-35.4); Mean Corpuscular Hemoglobin 28.4 pg (27.0-31.2); Mean Corpuscular Volume 90.1 fl (81-99); Mean Platelet Volume 8.5 fl (7.4-10.4); Monocytes # 0.4 K/mm3 (0.1-1.0); Monocytes % 2.7 % (1.7-9.3); Neutrophils % 88.3 % (37.0-80.0); Platelet Count 452 K/mm3 (142-424); Red Cell Distribution Width 14.9 % (11.5-17.5); White Blood Count 15.8 K/mm3 (4.8-10.8)
[2023-11-08 14:59] LABS: MANUAL DIFFERENTIAL MANUAL DIFFERENTIAL (MANUAL DIFF)
[2023-11-08 15:03] LABS: Microscopic, Urine URINE MICROSCOPIC (MICROSCOPIC)
[2023-11-08 15:04] LABS: Chloride 85 mmol/L (98-107); INR 0.94 (0.9-1.1); Prothrombin Time 10.2 seconds (10.1-12.5); Sodium 120 mmol/L (136-145)
[2023-11-08] MEDS: LACTATED RINGERS 1000ML 1,000 ML 999 ML IV ×2 (15:05→17:43)
[2023-11-08] MEDS: ACETAMINOPHEN 1,000MG/100ML VIAL 1000 MG IV (15:05)
[2023-11-08 15:06] LABS: Blood Urea Nitrogen 71 mg/dl (7-17); Creatinine Clearance Estimated 35 mL/min (50-200); Estimated Glomerular Filt Rate 24 ml/min (>60); GFR (African American) 29 ML/MIN (>60)
[2023-11-08 15:07] LABS: Alanine Aminotransferase 51 U/L (12-78); Albumin Level 4.8 g/dl (3.5-5.0); Albumin/Globulin Ratio 1.5 (1.1-1.8); Alkaline Phosphatase 139 U/L (38-126); Aspartate Amino Transferase 49 U/L (14-36); Calcium 9.7 mg/dl (8.4-10.2); Carbon Dioxide 19 mmol/L (22.0-30.0); Globulin 3.3 g/dL (1.3-3.2); Magnesium 2.2 mg/dl (1.6-2.3); Total Protein,Serum 8.1 g/dl (6.3-8.2)
[2023-11-08] MEDS: HYDROMORPHONE 2MG/ML SYRINGE 0.5 MG IV (15:08)
[2023-11-08 15:11] LABS: Appearance,Urine CLEAR (Clear); Bilirubin,Urine Negative (Negative); Blood, Urine 1+ (Negative); Color,Urine YELLOW (Yellow); Glucose,Urine (UA) 3+ (Negative); Ketones,Urine Negative (Negative); Leukocyte Esterase,Urine Negative (Negative); Nitrate,Urine Negative (Negative); PH,Urine 5.5 (5.0-8.5); Protein,Urine Negative (Negative); Urobilinogen,Urine 0.2 EU/dl (0.2)
[2023-11-08 15:15] LABS: Lactic Acid 2.3 mmol/L (0.7-2.1)
[2023-11-08] MEDS: ONDANSETRON 4MG/2ML VIAL 4 MG IV (15:16)
[2023-11-08 15:19] LABS: Glucose 794 mg/dl (74-100)
[2023-11-08 15:22] LABS: Lymphocytes % 16 % (10-50); Monocytes % 1 % (2-9); Neutrophils % 83 % (42-76); Platelet Estimate Normal; RBC Morphology Normal; Total Cells Counted 100
[2023-11-08 15:27] LABS: Bacteria,Urine Trace /lpf; Squamous Epithelial Cell,Urine Occasional #/hpf (0-5); WBC,Urine Occasional #/hpf (0-3)
[2023-11-08 15:31] LABS: Lactate Venous 3.6 mmol/L (0.4-2.0); VBG Base Excess -8.2 mmol/L (-2.4-2.3); VBG HCO3 18.3 mmol/L (23-30); VBG Oxygen Saturation 84.1 % (50-70); VBG PCO2 38.4 mmol/L (35-51); VBG PO2 52.2 mmol/L (28-40); VBG Total CO2 19.5 mmol/L (23-27)
[2023-11-08 15:31] LABS: Acetone, Serum (Rapid) None Detected (None Detect)
[2023-11-08 15:35] LABS: Lipase 165 U/L (23-300)
[2023-11-08] MEDS: INSULIN HUMAN REGULAR 100 UNITS/ML 10ML VIAL 10 UNIT IVP (15:39)
--- NOTE | 2023-11-08 15:46 | XR_ITS ---
FINAL REPORT CLINICAL HISTORY: dka COMPARISON: None FINDINGS: A single portable view of the chest was obtained. The heart size and pulmonary vascularity are within normal limits. The mediastinum is within normal limits. Mild atelectasis versus scar is present in the right lung base. The bony thorax is intact. IMPRESSION: No active cardiopulmonary disease. Mild atelectasis versus scarring in the right lung base. Reviewed, Interpreted and Dictated by Brody Gonzalez III, MD Transcribed by Cyn Lowe Authenticated and [facility]
[2023-11-08 16:06] LABS: Phosphorous 6.3 mg/dl (2.5-4.5)
--- NOTE | 2023-11-08 16:11 | PC.NURSE ---
FSBS read HIGH on monitor. Patient placed on insulin drip.
[2023-11-08 16:24] LABS: Procalcitonin 0.267 ng/mL (0.0-2.0)
[2023-11-08] MEDS: INSULIN REGULAR, HUMAN 100 UNIT in 0.9 % SODIUM CHLORIDE 100 ML 8.08000000000000007 UNIT IV (16:26)
--- NOTE | 2023-11-08 17:09 | ECG_ITS ---
APPROVED REPORT Exam: Resting ECG HR:91 bpm ECG Measurements Heart Rate 91 AXES KS 148 P 71 QRSd 97 QRS 55 QT 392 T 51 QTc 441 Conclusion SINUS RHYTHM MODERATE T-WAVE ABNORMALITY, CONSIDER LATERAL ISCHEMIA [-0.1+ mV T-WAVE IN I/aVL/V5/V6] ABNORMAL ECG Electronically signed by : KYLE BORRERO, 11/09/2023 16:36:51
--- NOTE | 2023-11-08 17:18 | PC.NURSE ---
Checked pts glucose level again and the monitor still reads HI
[2023-11-08 17:26] LABS: Hemoglobin A1C > 14.0 % (4.0-6.0)
[2023-11-08 17:32] LABS: Chloride 89 mmol/L (98-107); Potassium 4.5 mmoL/L (3.5-5.1); Sodium 122 mmol/L (136-145)
[2023-11-08 17:35] LABS: Anion Gap 21.5 mEq/L (5-15); Blood Urea Nitrogen 70 mg/dl (7-17); Calcium 9.2 mg/dl (8.4-10.2); Carbon Dioxide 16 mmol/L (22.0-30.0); Creatinine Clearance Estimated 39 mL/min (50-200); Estimated Glomerular Filt Rate 27 ml/min (>60); GFR (African American) 32 ML/MIN (>60); Phosphorous 5.6 mg/dl (2.5-4.5)
[2023-11-08 17:36] LABS: Magnesium 2.3 mg/dl (1.6-2.3)
--- NOTE | 2023-11-08 17:45 | PC.NURSE ---
Report called to [facility]
[2023-11-08 17:55] LABS: Glucose 640 mg/dl (74-100)
--- NOTE | 2023-11-08 17:56 | PC.NURSE ---
notified Dr. Cole of potassium 4.5 and patient had a second liter of lactated ringers started by er. Asked md if he wanted to switch to maintenance fluids per protocol or keep giving second liter of lr. MD stated to finish second bag of lactated ringers before starting maintenance fluids
--- NOTE | 2023-11-08 18:11 | PC.NURSE ---
Pt arrived to the floor at this time via stretcher
--- NOTE | 2023-11-08 18:48 | PC.NURSE ---
ns 150 with 20 k at 150 started 1820, verified with yanelis conn
[2023-11-08 18:52] LABS: Reflex Lactic Add Lactic Reflex
--- NOTE | 2023-11-08 18:52 | P.HP_ITS ---
History of Present Illness *Admission Date: 11/08/23 *Reason for visit:: Abdominal pain, nausea and vomiting *History of present illness: Ms. Quiroz is a 60-year-old female history of OPD, hypertension, obesity had states she has a family history of diabetes. She presented to the ER because of worsening nausea, vomiting, right lower quadrant pain. Pain has been progressively worsening over the past 6 days. In the past 24 hours however she has started having vomiting and diarrhea. On further review, patient complains of nocturia, polydipsia, polyuria for months to a year. Denies any hematemesis, hematochezia. No melena. No fever. Denies chest pain or shortness of breath. Symptoms brought her to the ER for further evaluation. She has been seeing cardiology and pulmonology for workup of weakness and dizziness. No previous known diagnosis of diabetes. Workup in the ER or patient was found to have leukocytosis, tachycardia, severely elevated glucose of almost 800. Anion gap of 21 but no ketones or acetone in her urine. Sodium 120. BUN and creatinine of 71 and 2.1 respectively. White cell count of 15.8. No focal source of infection identified, meeting SIRS criteria. CT of abdomen obtained that was unremarkable with no significant finding. No stones or hydronephrosis. Given findings of hyperglycemia and ALE, patient given fluid bolus and started on insulin drip. Medicine consulted for admission and further management. Patient admitted to stepdown level of care. Seeing improvement in glucose by the time she arrived to the floor, glucose in the mid 400s. States she is feeling little better after fluids. Appears alert and oriented but in mild to moderate distress. On room air. Significant family history of diabetes per her report. [facility] Disclaimer: The information contained in this section may have been updated after the patient was seen, as this information can be updated by other users. Medical History Abnormal chest CT Encounter for screening for malignant neoplasm of lung COPD mixed type Smoking greater than 30 pack years Urinary tract infection Pneumonia History of gastroesophageal reflux (GERD) Neuropathy Hepatitis C Asthma COPD (chronic obstructive pulmonary disease) HTN (hypertension), benign Surgical History History of surgery History of cholecystectomy H/O removal of cyst Family History Other Asthma Bleeding disorder Coronary artery disease Diabetes Heart attack Hyperlipidemia Hypertension Stroke Social History Smoking Status: Current every day smoker tobacco type: cigarettes packs per day: 1 years smoked: 50 alcohol intake: never current occupational status: unemployed Travel in the last 8 weeks: None caffeine: Yes Review of Systems Review of Systems Review of systems (narrative): 14 point review of systems performed, pertinent positives and negatives as per [facility] Meds Home Medications and Allergies Home Medications Medication Instructions Recorded Confirmed Type atorvastatin 10 mg tablet See Rx Instructions .Route 08/08/23 11/08/23 Rx .COMPLEX #90 ea mometasone-formoterol HFA 100 See Rx Instructions .Route 09/04/23 11/08/23 Rx mcg-5 mcg/actuation aerosol .COMPLEX #13 grams inhaler (Dulera) amlodipine 10 mg tablet See Rx Instructions .Route 10/04/23 11/08/23 Rx .COMPLEX #90 tabs cholecalciferol (vitamin D3) 1,250 See Rx Instructions .Route 10/30/23 11/01/23 Rx mcg (50,000 unit) capsule .COMPLEX #7 caps ipratropium 0.5 mg-albuterol 3 mg See Rx Instructions .Route 10/30/23 11/08/23 Rx (2.5 mg base)/3 mL nebulization .COMPLEX #180 mL soln ipratropium 20 mcg-albuterol 100 See Rx Instructions .Route 10/30/23 11/08/23 Rx mcg/actuation mist for inhalation .COMPLEX #4 grams (Combivent Respimat) lisinopril 20 See Rx Instructions .Route 10/30/23 11/08/23 Rx mg-hydrochlorothiazide 25 mg tablet .COMPLEX #60 tabs cyclobenzaprine 10 mg tablet 10 mg PO TID PRN muscle spasms 11/08/23 11/08/23 History omeprazole 40 mg capsule,delayed 40 mg PO DAILY 11/08/23 11/08/23 History release oxybutynin chloride 10 mg 10 mg PO DAILY 11/08/23 11/08/23 History tablet,extended release 24 hr polyethylene glycol 3350 17 17 g PO DAILY 11/08/23 11/08/23 History gram/dose oral powder (ClearLax) New Prescriptions to Start Prescriptions: Allergies Allergy/AdvReac Type Severity Reaction Status Date / Time NSAIDS (Non-Steroidal Allergy Intermediate Verified 11/01/23 09:45 Anti-Inflamma [NSAIDS (NON-STEROIDAL ANTI-INFLAMMA] codeine [CODEINE] Allergy Unknown Verified 11/01/23 09:45 tramadol [TRAMADOL] Allergy Unknown Verified 11/01/23 09:45 Milk Containing Products Allergy Verified 11/01/23 09:45 (Dairy) [Milk Containing Products] Exam Data for Last 24 hours Vital signs and Labs for Last 24 Hours: Temp Pulse Resp BP Pulse Ox O2 Del Method O2 Flow Rate 97.8 F 94 H 24 127/68 95 Room Air 2 11/08/23 17:55 11/08/23 18:28 11/08/23 18:28 11/08/23 18:28 11/08/23 18:28 11/08/23 18:28 11/08/23 16:30 Laboratory Results - last 24 hr 11/08/23 14:40: WBC 15.8 H, RBC 5.70 H, Hgb 16.2, Hct 51.4 H, MCV 90.1, MCH 28.4, MCHC 31.5 L, RDW 14.9, Plt Count 452 H, MPV 8.5, Neut % (Auto) 88.3 H, Lymph % (Auto) 8.6 L, [place] % (Auto) 2.7, Eos % (Auto) 0.1, Baso % (Auto) 0.2, Neut # (Auto) 14.0 H, Lymph # (Auto) 1.4, [place] # (Auto) 0.4, Eos # (Auto) 0.0, Baso # (Auto) 0.0, Total Counted 100, Neutrophils % (Manual) 83 H, Lymphocytes % (Manual) 16, Monocytes % (Manual) 1 L, Platelet Estimate Normal, RBC Morphology Normal, PT 10.2, INR 0.94, Sodium 120 L, Potassium 5.0, Chloride 85 L, Carbon Dioxide 19 L, Anion Gap 21.0 H, BUN 71 H, Creatinine 2.10 H, Estimated Creat Clear 35, Estimated GFR 24 L, Est GFR ( Amer) 29 L, Glucose 794 H*, Hemoglobin A1c > 14.0 H, Lactate 2.3 H, Calcium 9.7, Phosphorus 6.3 H, Magnesium 2.2, Total Bilirubin 1.0, AST 49 H, ALT 51, Alkaline Phosphatase 139 H, Total Protein 8.1, Albumin 4.8, Globulin 3.3 H, Albumin/Globulin Ratio 1.5, Lipase 165, Procalcitonin 0.267, Acetone Level None detected 11/08/23 14:58: Urine Color Yellow, Urine Appearance Clear, Urine pH 5.5, Ur Specific [place] 1.020, Urine Protein Negative, Urine Glucose (UA) 3+, Urine Ketones Negative, Urine Blood 1+, Urine Nitrate Negative, Urine Bilirubin Negative, Urine Urobilinogen 0.2, Ur Leukocyte Esterase Negative, Urine RBC 3-5, Urine WBC Occasional, Ur Squamous Epith Cells Occasional, Urine Bacteria Trace 11/08/23 15:20: VBG pH 7.30 L, VBG pCO2 38.4, VBG pO2 52.2 H, VBG HCO3 18.3 L, VBG Total CO2 19.5 L, VBG O2 Saturation 84.1 H, VBG Base Excess -8.2 L, VBG Lactic Acid 3.6 H 11/08/23 17:13: Sodium 122 L, Potassium 4.5, Chloride 89 L, Carbon Dioxide 16 L, Anion Gap 21.5 H, BUN 70 H, Creatinine 1.90 H, Estimated Creat Clear 39, Estimated GFR 27 L, Est GFR ( Amer) 32 L, Glucose 640 H*, Calcium 9.2, Phosphorus 5.6 H, Magnesium 2.3 I & O for Last 24 hours: Intake & Output 11/05/23 11/06/23 11/07/23 11/08/23 23:59 23:59 23:59 23:59 Intake Total 15.756 / 15.756 Balance 15.756 / 15.756 Weight 81.647 kg Constitutional Constitutional: mild distress, obese, chronically ill appearing and cooperative *Routine HEENT Exam Head: Present normocephalic Eye: Present EOMI and PERRL ENT: Present mucous membranes moist *Routine Neck Exam Neck: Present supple; Absent lymphadenopathy *Routine Respiratory Exam Respiratory: Present prolonged expiratory phase and wheezes; Absent rhonchi or crackles *Routine Cardiovascular Exam Cardiovascular: Present tachycardia *Routine Abdominal Exam Abdominal: Present soft, normoactive bowel sounds and tenderness (Diffuse, worse in right lower quadrant); Absent distended, rebound or guarding *Routine Rectal Exam Rectal:: deferred *Routine Genitalia Exam Genitalia:: deferred *Routine Extremities Exam Extremities: Absent cyanosis, clubbing or edema *Routine Skin Exam Skin: Present intact and warm; Absent rash *Routine Neurological Exam Neurological: Present alert, oriented X3 and moving all extremities; Absent altered mental status Assessment and Plan *Assessment and plan (1) Uncontrolled type 2 DM with hyperosmolar nonketotic hyperglycemia: Status: Acute Category: Medical Code(s): E11.00 - Type 2 diabetes mellitus with hyperosmolarity without nonketotic hyperglycemic-hyperosmolar coma ([facility]) (2) Leukocytosis: Status: Acute Category: Medical Code(s): D72.829 - Elevated white blood cell count, unspecified (3) Hyponatremia: Status: Acute Category: Medical Code(s): E87.1 - Hypo-osmolality and hyponatremia (4) COPD (chronic obstructive pulmonary disease): Status: Acute Category: Medical Code(s): J44.9 - Chronic obstructive pulmonary disease, unspecified (5) HTN (hypertension), benign: Status: Acute Category: Medical Code(s): I10 - Essential (primary) hypertension (6) Tobacco dependence due to cigarettes: Status: Acute Category: Medical Code(s): F17.210 - Nicotine dependence, cigarettes, uncomplicated (7) Acute nontraumatic kidney injury: Status: Acute Category: Medical Code(s): N17.9 - Acute kidney failure, unspecified (8) Abdominal pain, right lower quadrant: Status: Acute Category: Medical Code(s): R10.31 - Right lower quadrant pain (9) Nausea vomiting and diarrhea: Status: Acute Category: Medical Code(s): R11.2 - Nausea with vomiting, unspecified; R19.7 - Diarrhea, unspecified Plan 63-year-old female who presents in distress with abdominal pain and discomfort. Workup consistent with HHS and new diagnosis of diabetes. Meeting SIRS criteria. Urine unremarkable, chest imaging negative, abdominal imaging negative. Received bolus in the ER. Started on insulin drip. Seeing improvement in glucose however gap remains elevated. Discussed case with ER, request admission for further management of HHS and monitoring cultures given her SIRS criteria. Medicine agreed to admit for further management. Problems addressed as follows: New diagnosis of uncontrolled diabetes with HHS and hyperglycemia Anion gap metabolic acidosis Hyponatremia -Initiated on DKA protocol. Glucose initially 794, improved to mid 400s by the time she arrived to the floor. Gap remains elevated at 21. -Continue insulin drip per protocol. N.p.o. at this time. Receiving maintenance fluids per protocol. -Will initiate Lantus 20 units nightly to promote closure of gap and to start basal insulin for adjustments tomorrow. -Advance diet when gap closes and able to come off insulin drip -A1c greater than 14 -Significant electrolyte disturbances with sodium of 120, chloride 85, bicarb 19 -BMP every 4 hours, fingersticks hourly -Monitoring potassium closely, will replete per protocol. Currently 5.0. Magnesium 2.2, phosphorus 6.3. - CBC, magnesium, phosphorus ordered for the morning -Leukocytosis likely reactive, white cell count of 15.8. Holding on antibiotics given low suspicion for infection ALE - Previous creatinine in March of last year, 1.2. This appears to be her baseline -Creatinine elevated to 2.1 on admission, BUN 71. Monitoring with BMP. Likely prerenal from HHS. Anticipate improvement with fluid resuscitation -Will hold patient's lisinopril in the adding of ALE and normotensive state Hypertension: Holding home regimen in the setting of ALE and normotensive state COPD continue duo observe the 6 hours as needed, continue Dulera. Stable on room air. Monitor for oxygen requirement, goal sats greater 90%. Overactive bladder: Continue oxybutynin 10 mg daily GERD: Continue omeprazole daily Abdominal pain: No obvious infection or abnormality on imaging. Morphine 4 mg every 4 hours as needed for severe breakthrough pain. Will wean as tolerated. Likely secondary to her DKA Holding home Lipitor in the setting of DKA and abdominal pain Full code Heparin 5000units BID NPO
[2023-11-08 20:12] LABS: Lactic Acid Follow Up (RFLX 1) 2.8 mmol/L (0.7-2.1)
[2023-11-08 20:30] LABS: POC Glucose,Bedside 280 (70-110)
[2023-11-08] MEDS: MORPHINE 4MG/ML SYRINGE 4 MG IV (20:32)
[2023-11-08 20:54] LABS: Chloride 96 mmol/L (98-107); Potassium 4.3 mmoL/L (3.5-5.1); Sodium 130 mmol/L (136-145)
[2023-11-08 20:56] LABS: Blood Urea Nitrogen 62 mg/dl (7-17); Creatinine Clearance Estimated 47 mL/min (50-200); Estimated Glomerular Filt Rate 33 ml/min (>60); GFR (African American) 39 ML/MIN (>60)
[2023-11-08 20:57] LABS: Anion Gap 12.3 mEq/L (5-15); Calcium 9.3 mg/dl (8.4-10.2); Carbon Dioxide 26 mmol/L (22.0-30.0); Glucose 261 mg/dl (74-100); Phosphorous 4.5 mg/dl (2.5-4.5)
[2023-11-08] MEDS: OXYBUTYNIN 5MG TAB 5 MG PO (21:28)
[2023-11-08] MEDS: PANTOPRAZOLE 40MG TABLET 40 MG PO (21:28)
[2023-11-08] MEDS: CYCLOBENZAPRINE 10MG TABLET 10 MG PO (21:28)
[2023-11-08] MEDS: HEPARIN SODIUM 5,000 UNIT/ML VIAL 5000 UNIT SQ (21:28)
[2023-11-08] MEDS: INSULIN GLARGINE 100 UNITS/ML 3ML FLEXPEN 20 UNIT SQ (21:28)
[2023-11-08 21:43] LABS: Reflex Lactic (2 hrs) Add Lactic Reflex
[2023-11-08] MEDS: 0.9% NaCl w/20mEq KCL 1,000 ML 150 ML IV (22:27)
[2023-11-08 22:38] LABS: Lactic Acid Follow up (RFLX 2) 1.4 mmol/L (0.7-2.1)
[2023-11-09] VITALS (17 sets, daily range): BP systolic 104–140; BP diastolic 48–77; PULSE 80–105; RESP 16–21; TEMP 36.3–36.7; O2SAT 91–96; BMI 32.2
[2023-11-09 00:45] LABS: Chloride 101 mmol/L (98-107); Potassium 4.1 mmoL/L (3.5-5.1); Sodium 130 mmol/L (136-145)
[2023-11-09 00:47] LABS: Blood Urea Nitrogen 53 mg/dl (7-17); Creatinine Clearance Estimated 53 mL/min (50-200); Estimated Glomerular Filt Rate 38 ml/min (>60); GFR (African American) 46 ML/MIN (>60)
[2023-11-09 00:48] LABS: Anion Gap 9.1 mEq/L (5-15); Calcium 8.8 mg/dl (8.4-10.2); Carbon Dioxide 24 mmol/L (22.0-30.0); Glucose 176 mg/dl (74-100); Phosphorous 4.2 mg/dl (2.5-4.5)
[2023-11-09] MEDS: humaLOG 100 UNITS/ML 3ML VIAL (SSI) SQ ×4 (06:04→20:40)
[2023-11-09 06:24] LABS: POC Glucose,Bedside 285 (70-110)
[2023-11-09 06:46] LABS: Basophils % 0.2 % (0.1-2.0); Eosinophils % 0.1 % (0.1-12.0); Hematocrit 42.6 % (37.0-47.0); Lymphocytes # 1.5 K/mm3 (0.7-4.5); Lymphocytes % 8.6 % (10-50); Mean Corpuscular Hemoglobin 29.1 pg (27.0-31.2); Mean Corpuscular Volume 88.2 fl (81-99); Mean Platelet Volume 8.8 fl (7.4-10.4); Monocytes # 0.6 K/mm3 (0.1-1.0); Monocytes % 3.6 % (1.7-9.3); Neutrophils # 15.2 K/mm3 (1.8-7.8); Neutrophils % 87.5 % (37.0-80.0); Platelet Count 319 K/mm3 (142-424); Red Blood Count 4.83 M/mm3 (4.20-5.40); Red Cell Distribution Width 15.2 % (11.5-17.5); White Blood Count 17.4 K/mm3 (4.8-10.8)
[2023-11-09 06:49] LABS: POC Glucose,Bedside 176 (70-110)
[2023-11-09 06:49] LABS: POC Glucose,Bedside 279 (70-110)
[2023-11-09 06:49] LABS: POC Glucose,Bedside 263 (70-110)
[2023-11-09 06:49] LABS: POC Glucose,Bedside 200 (70-110)
[2023-11-09 06:49] LABS: POC Glucose,Bedside 141 (70-110)
[2023-11-09 06:49] LABS: POC Glucose,Bedside 448 (70-110)
[2023-11-09 06:58] LABS: MANUAL DIFFERENTIAL MANUAL DIFFERENTIAL (MANUAL DIFF)
[2023-11-09 07:03] LABS: Alanine Aminotransferase 124 U/L (12-78); Albumin Level 3.5 g/dl (3.5-5.0); Albumin/Globulin Ratio 1.3 (1.1-1.8); Alkaline Phosphatase 117 U/L (38-126); Anion Gap 13.4 mEq/L (5-15); Aspartate Amino Transferase 204 U/L (14-36); Bilirubin,Total 0.9 mg/dl (0.2-1.3); Blood Urea Nitrogen 50 mg/dl (7-17); Calcium 8.6 mg/dl (8.4-10.2); Carbon Dioxide 24 mmol/L (22.0-30.0); Chloride 98 mmol/L (98-107); Creatinine Clearance Estimated 63 mL/min (50-200); Estimated Glomerular Filt Rate 45 ml/min (>60); GFR (African American) 55 ML/MIN (>60); Globulin 2.7 g/dL (1.3-3.2); Glucose 275 mg/dl (74-100); Magnesium 1.9 mg/dl (1.6-2.3); Potassium 4.4 mmoL/L (3.5-5.1); Sodium 131 mmol/L (136-145); Total Protein,Serum 6.2 g/dl (6.3-8.2)
[2023-11-09 07:44] LABS: Lymphocytes % 10 % (10-50); Monocytes % 1 % (2-9); Neutrophils % 89 % (42-76); Total Cells Counted 100
[2023-11-09 07:45] LABS: Platelet Estimate Normal; RBC Morphology Normal
--- NOTE | 2023-11-09 08:09 | P.PN_ITS ---
Subjective *Date: 11/09/23 *Time: 15:36 Interval history: Gap closed overnight. On sliding scale insulin along with basal insulin. Stable on room air. Clinically improving with improved hemodynamics. Still having abdominal pain. No nausea or vomiting. No bowel movement since admissio n. Denies chest pain or shortness of breath Medical Exam Vital signs and Labs for Last 24 Hours: Vital Signs Temp Pulse Pulse Resp BP BP Pulse Ox 11/09/23 07:00 90 19 119/71 92 L 11/09/23 06:00 90 21 106/63 L 93 L 11/09/23 05:00 86 17 105/69 L 91 L 11/09/23 04:00 94 L 11/09/23 04:00 100 H 11/09/23 04:00 100 H 16 121/69 94 L 11/09/23 03:00 92 H 18 123/74 94 L 11/09/23 02:00 92 H 19 123/70 92 L 11/09/23 01:00 92 H 16 107/69 L 91 L 11/09/23 00:16 90 11/09/23 00:00 93 L 11/09/23 00:00 97.9 F 11/09/23 00:00 92 H 16 113/65 94 L 11/08/23 23:00 92 H 15 108/64 L 90 L 11/08/23 22:00 93 H 15 131/78 89 L 11/08/23 21:00 93 H 22 115/58 L 100 11/08/23 20:00 90 11/08/23 20:00 97.9 F 11/08/23 20:00 93 L 11/08/23 20:00 96 H 20 113/61 94 L 11/08/23 19:00 89 20 108/50 L 96 11/08/23 18:58 11/08/23 18:28 94 H 24 127/68 95 11/08/23 18:00 97.8 F 11/08/23 17:55 97.8 F 92 H 20 108/62 L 11/08/23 17:30 95 H 143/93 H 93 L 11/08/23 17:00 97 H 126/80 92 L 11/08/23 16:30 98 H 112/75 92 L 11/08/23 16:00 96 H 127/68 97 11/08/23 15:30 93 H 148/79 H 95 11/08/23 15:11 93 H 121/70 91 L 11/08/23 14:32 97.6 F 102 H 16 140/109 H 95 O2 Del Method O2 Flow Rate FiO2 11/09/23 07:00 Room Air 11/09/23 06:00 Room Air 11/09/23 05:00 Mechanical Ventilation 35 11/09/23 04:00 Room Air 11/09/23 04:00 11/09/23 04:00 Room Air 11/09/23 03:00 Room Air 11/09/23 02:00 Room Air 11/09/23 01:00 Room Air 11/09/23 00:16 11/09/23 00:00 Room Air 11/09/23 00:00 11/09/23 00:00 Room Air 11/08/23 23:00 Room Air 11/08/23 22:00 Room Air 11/08/23 21:00 Mechanical Ventilation 35 11/08/23 20:00 11/08/23 20:00 11/08/23 20:00 Room Air 11/08/23 20:00 Room Air 11/08/23 19:00 Room Air 11/08/23 18:58 Room Air 11/08/23 18:28 Room Air 11/08/23 18:00 11/08/23 17:55 Room Air 11/08/23 17:30 11/08/23 17:00 Room Air 11/08/23 16:30 Nasal Cannula 2 11/08/23 16:00 Nasal Cannula 2 11/08/23 15:30 11/08/23 15:11 11/08/23 14:32 Room Air Intake and Output 11/08/23 11/09/23 11/09/23 23:59 07:59 15:59 Intake Total 26.899 / 26.899 Output Total 600 / 600 Balance 26.899 / 26.899 -600 / -600 Intake: Intake, Total IV Amount 26.899 / 26.899 Output: Output, Urine Amount 600 / 600 Other: Weight 82.27 kg 82.5 kg Patient Weight 11/09/23 23:59 Weight 82.5 kg Laboratory Results - last 24 hr 11/08/23 14:40: WBC 15.8 H, RBC 5.70 H, Hgb 16.2, Hct 51.4 H, MCV 90.1, MCH 28.4, MCHC 31.5 L, RDW 14.9, Plt Count 452 H, MPV 8.5, Neut % (Auto) 88.3 H, Lymph % (Auto) 8.6 L, [place] % (Auto) 2.7, Eos % (Auto) 0.1, Baso % (Auto) 0.2, Neut # (Auto) 14.0 H, Lymph # (Auto) 1.4, [place] # (Auto) 0.4, Eos # (Auto) 0.0, Baso # (Auto) 0.0, Total Counted 100, Neutrophils % (Manual) 83 H, Lymphocytes % (Manual) 16, Monocytes % (Manual) 1 L, Platelet Estimate Normal, RBC Morphology Normal, PT 10.2, INR 0.94, Sodium 120 L, Potassium 5.0, Chloride 85 L, Carbon Dioxide 19 L, Anion Gap 21.0 H, BUN 71 H, Creatinine 2.10 H, Estimated Creat Clear 35, Estimated GFR 24 L, Est GFR ( Amer) 29 L, Glucose 794 H*, Hemoglobin A1c > 14.0 H, Lactate 2.3 H, Calcium 9.7, Phosphorus 6.3 H, Magnesium 2.2, Total Bilirubin 1.0, AST 49 H, ALT 51, Alkaline Phosphatase 139 H, Total Protein 8.1, Albumin 4.8, Globulin 3.3 H, Albumin/Globulin Ratio 1.5, Lipase 165, Procalcitonin 0.267, Acetone Level None detected 11/08/23 14:58: Urine Color Yellow, Urine Appearance Clear, Urine pH 5.5, Ur Specific [place] 1.020, Urine Protein Negative, Urine Glucose (UA) 3+, Urine Ketones Negative, Urine Blood 1+, Urine Nitrate Negative, Urine Bilirubin Negati ve, Urine Urobilinogen 0.2, Ur Leukocyte Esterase Negative, Urine RBC 3-5, Urine WBC Occasional, Ur Squamous Epith Cells Occasional, Urine Bacteria Trace 11/08/23 15:20: VBG pH 7.30 L, VBG pCO2 38.4, VBG pO2 52.2 H, VBG HCO3 18.3 L, VBG Total CO2 19.5 L, VBG O2 Saturation 84.1 H, VBG Base Excess -8.2 L, VBG Lactic Acid 3.6 H 11/08/23 17:13: Sodium 122 L, Potassium 4.5, Chloride 89 L, Carbon Dioxide 16 L, Anion Gap 21.5 H, BUN 70 H, Creatinine 1.90 H, Estimated Creat Clear 39, Estimated GFR 27 L, Est GFR ( Amer) 32 L, Glucose 640 H*, Calcium 9.2, Phosphorus 5.6 H, Magnesium 2.3 11/08/23 18:21: POC Glucose 448 H* 11/08/23 19:02: POC Glucose 279 H 11/08/23 19:39: Lactate 2.8 H 11/08/23 20:19: POC Glucose 280 H 11/08/23 20:35: Sodium 130 L, Potassium 4.3, Chloride 96 L, Carbon Dioxide 26, Anion Gap 12.3, BUN 62 H, Creatinine 1.60 H, Estimated Creat Clear 47, Estimated GFR 33 L, Est GFR ( Amer) 39 L D, Glucose 261 H D, Calcium 9.3, Phosphorus 4.5, Magnesium 2.0 D 11/08/23 21:10: POC Glucose 263 H 11/08/23 22:11: Lactate 1.4 11/08/23 22:12: POC Glucose 200 H 11/08/23 23:06: POC Glucose 141 H 11/09/23 00:10: POC Glucose 176 H 11/09/23 00:30: Sodium 130 L, Potassium 4.1, Chloride 101, Carbon Dioxide 24, Anion Gap 9.1, BUN 53 H, Creatinine 1.40 H, Estimated Creat Clear 53, Estimated GFR 38 L, Est GFR ( Amer) 46 L, Glucose 176 H D, Calcium 8.8, Phosphorus 4.2, Magnesium 2.0 11/09/23 05:45: WBC 17.4 H, RBC 4.83, Hgb 14.0 D, Hct 42.6, MCV 88.2, MCH 29.1, MCHC 33.0, RDW 15.2, Plt Count 319 D, MPV 8.8, Neut % (Auto) 87.5 H, Lymph % (Auto) 8.6 L, [place] % (Auto) 3.6, Eos % (Auto) 0.1, Baso % (Auto) 0.2, Neut # (Auto) 15.2 H, Lymph # (Auto) 1.5, [place] # (Auto) 0.6, Eos # (Auto) 0.0, Baso # (Auto) 0.0, Total Counted 100, Neutrophils % (Manual) 89 H, Lymphocytes % (Manual) 10, Monocytes % (Manual) 1 L, Platelet Estimate Normal, RBC Morphology Normal, Sodium 131 L, Potassium 4.4, Chloride 98, Carbon Dioxide 24, Anion Gap 13.4, BUN 50 H, Creatinine 1.20 H, Estimated Creat Clear 63, Estimated GFR 45 L, Est GFR ( Amer) 55 L, Glucose 275 H D, Calcium 8.6, Magnesium 1.9, Total Bilirubin 0.9, AST 204 H D, ALT 124 H D, Alkaline Phosphatase 117, Total Protein 6.2 L, Albumin 3.5 D, Globulin 2.7, Albumin/Globulin Ratio 1.3 11/09/23 05:49: POC Glucose 285 H I & O for Labs for Last 24 Hours: Intake & Output 11/06/23 11/07/23 11/08/23 11/09/23 23:59 23:59 23:59 23:59 Intake Total 26.899 / 26.899 Output Total 600 / 600 Balance 26.899 / 26.899 -600 / -600 Weight 82.27 kg 82.5 kg Constitutional: Present no acute distress, obese, chronically ill appearing and cooperative Head: Present atraumatic and normocephalic ENT: Present normal exam Neck: Present normal inspection Respiratory: Present normal respiratory effort; Absent rhonchi, wheezes or crackles Cardiac: Present Reg Rate and Rhythm GI: Present soft, tenderness (right lower quadrant, no rebound) and normal bowel sounds; Absent distention Extremities: Present normal inspection and full ROM Skin: Present intact; Absent erythema Neuro: Present Grossly Intact, alert, awake, oriented x 3 and moves all extremities Assessment and Plan *Assessment and plan (1) Uncontrolled type 2 DM with hyperosmolar nonketotic hyperglycemia: Status: Acute Category: Medical Code(s): E11.00 - Type 2 diabetes mellitus with hyperosmolarity without nonketotic hyperglycemic-hyperosmolar coma (N[facility]) (2) Leukocytosis: Status: Acute Category: Medical Code(s): D72.829 - Elevated white blood cell count, unspecified (3) Hyponatremia: Status: Acute Category: Medical Code(s): E87.1 - Hypo-osmolality and hyponatremia (4) UTI (urinary tract infection): Status: Acute Qualifiers: Hematuria presence: with hematuria Urinary tract infection type: site unspecified Qualified Code(s): N39.0 - Urinary tract infection, site not specified; R31.9 - Hematuria, unspecified Category: Medical Code(s): N39.0 - Urinary tract infection, site not specified (5) COPD (chronic obstructive pulmonary disease): Status: Acute Category: Medical Code(s): J44.9 - Chronic obstructive pulmonary disease, unspecified (6) HTN (hypertension), benign: Status: Acute Category: Medical Code(s): I10 - Essential (primary) hypertension (7) Tobacco dependence due to cigarettes: Status: Acute Category: Medical Code(s): F17.210 - Nicotine dependence, cigarettes, uncomplicated (8) Acute nontraumatic kidney injury: Status: Acute Category: Medical Code(s): N17.9 - Acute kidney failure, unspecified (9) Abdominal pain, right lower quadrant: Status: Acute Category: Medical Code(s): R10.31 - Right lower quadrant pain (10) Nausea vomiting and diarrhea: Status: Acute Category: Medical Code(s): R11.2 - Nausea with vomiting, unspecified; R19.7 - Diarrhea, unspecified Plan 63-year-old female who presents in distress with abdominal pain and discomfort. Workup consistent with HHS and new diagnosis of diabetes. Meeting SIRS criteria. Urine unremarkable, chest imaging negative, abdominal imaging negative. Received bolus in the ER. Started on insulin drip. Seeing improvement in glucose however gap remains elevated. Discussed case with ER, request admission for further management of HHS and monitoring cultures given her SIRS criteria. Medicine agreed to admit for further management. Anion gap closed, diabetes stabilizing. Transition to basal bolus regimen. Found to have UTI. Continues to necessitate inpatient management. Problems addressed as follows: New diagnosis of uncontrolled diabetes with HHS and hyperglycemia Anion gap metabolic acidosis Hyponatremia -Responded to insulin drip. Gap closed. -Increase basal insulin to 30 units tonight. Continue sliding scale insulin ACHS. -Advance diet to diabetic diet. -Discontinue IV fluids. -A1c greater than 14 -Sodium improved to 131, chloride 98, potassium 4.4, magnesium 1.9. Leukocytosis: Gram-negative lj UTI -white cell count increased to 17 today. Urine culture returned positive for gram-negative rods. Will initiate levofloxacin 750 mg daily for suspected UTI. -Urine culture still pending for final speciation and sensitivity. Blood cultures pending. -Morphine for abdominal pain, likely related to UTI. Monitor for toxicity given IV dosing ALE - Previous creatinine in March of last year, 1.2. This appears to be her baseline -Improved to baseline today at 1.2 for creatinine. BUN 50, down from 71. Repeat BMP this afternoon, CMP, CBC, magnesium ordered for the morning. -Will hold patient's lisinopril in the adding of ALE and normotensive state Hypertension: Holding home regimen in the setting of ALE and normotensive state COPD continue duo observe the 6 hours as needed, continue Dulera. Stable on room air. Monitor for oxygen requirement, goal sats greater 90%. Overactive bladder: Continue oxybutynin 10 mg daily GERD: Continue omeprazole daily Holding home Lipitor in the setting of DKA and abdominal pain Full code Heparin 5000units BID Diabetic diet
[2023-11-09] MEDS: MORPHINE 4MG/ML SYRINGE 4 MG IV ×3 (08:44→19:30)
[2023-11-09] MEDS: HEPARIN SODIUM 5,000 UNIT/ML VIAL 5000 UNIT SQ ×2 (08:44→20:41)
[2023-11-09] MEDS: OXYBUTYNIN 5MG TAB 5 MG PO ×2 (08:45→20:42)
[2023-11-09 09:04] LABS: Chloride 98 mmol/L (98-107); Potassium 4.6 mmoL/L (3.5-5.1); Sodium 129 mmol/L (136-145)
[2023-11-09 09:07] LABS: Anion Gap 11.6 mEq/L (5-15); Blood Urea Nitrogen 53 mg/dl (7-17); Carbon Dioxide 24 mmol/L (22.0-30.0); Creatinine Clearance Estimated 50 mL/min (50-200); Estimated Glomerular Filt Rate 35 ml/min (>60); GFR (African American) 42 ML/MIN (>60)
[2023-11-09 09:08] LABS: Calcium 9.1 mg/dl (8.4-10.2); Glucose 325 mg/dl (74-100); Magnesium 1.9 mg/dl (1.6-2.3); Phosphorous 3.3 mg/dl (2.5-4.5)
--- NOTE | 2023-11-09 09:40 | [facility].PHAINT1 ---
Pharmacy Intervention Comments: HOME MEDICATION LIST VERIFIED USING LIST FROM OUTPATIENT PHARMACY
[2023-11-09] MEDS: LEVOFLOXACIN/D5W 750 MG/150 ML 750 MG/150 ML PIGGYBACK 100 MG IV (10:26)
[2023-11-09 12:31] LABS: POC Glucose,Bedside 400 (70-110)
[2023-11-09 13:10] LABS: Chloride 96 mmol/L (98-107); Sodium 126 mmol/L (136-145)
[2023-11-09 13:11] LABS: Potassium 4.4 mmoL/L (3.5-5.1)
[2023-11-09 13:13] LABS: Blood Urea Nitrogen 50 mg/dl (7-17); Creatinine Clearance Estimated 54 mL/min (50-200); Estimated Glomerular Filt Rate 38 ml/min (>60); GFR (African American) 46 ML/MIN (>60)
[2023-11-09 13:14] LABS: Anion Gap 10.4 mEq/L (5-15); Calcium 8.9 mg/dl (8.4-10.2); Carbon Dioxide 24 mmol/L (22.0-30.0); Glucose 395 mg/dl (74-100); Magnesium 1.8 mg/dl (1.6-2.3)
--- NOTE | 2023-11-09 15:07 | PC.NURSE ---
1450 pt refuses to keep gown and o2 in place. pt is redirected, but will then attempt to remove all devices again. mittens back in place on pt.
--- NOTE | 2023-11-09 17:16 | PC.NURSE ---
pt has appeared to rest in bed this shift. pt has had several family members in and out visiting this shift. pt is a/ox4. lungs are clear with scattered wheezes. bowel sounds are active in all quads. pt denies having a bm this shift. nad noted. pt is able to ambulate to and from the bathroom with standby assistance r/t pt receiving iv morphine.
[2023-11-09 18:27] LABS: Chloride 98 mmol/L (98-107); Potassium 4.2 mmoL/L (3.5-5.1); Sodium 126 mmol/L (136-145)
[2023-11-09 18:30] LABS: Anion Gap 8.2 mEq/L (5-15); Blood Urea Nitrogen 44 mg/dl (7-17); Calcium 8.7 mg/dl (8.4-10.2); Carbon Dioxide 24 mmol/L (22.0-30.0); Creatinine Clearance Estimated 50 mL/min (50-200); Estimated Glomerular Filt Rate 35 ml/min (>60); GFR (African American) 42 ML/MIN (>60); Glucose 185 mg/dl (74-100)
[2023-11-09] MEDS: FLUTICASONE/SALMETEROL 250/50MCG DISKUS 1 PUFF IH (18:52)
[2023-11-09 20:12] LABS: POC Glucose,Bedside 151 (70-110)
[2023-11-09 20:12] LABS: POC Glucose,Bedside 214 (70-110)
[2023-11-09] MEDS: INSULIN GLARGINE 100 UNITS/ML 3ML FLEXPEN 30 UNIT SQ (20:41)
[2023-11-09] MEDS: PANTOPRAZOLE 40MG TABLET 40 MG PO (20:41)
[2023-11-10 04:00] VITALS: BP 115/61; PULSE 82; RESP 16; TEMP 37; O2SAT 95; BMI 32.1
[2023-11-10 06:24] LABS: POC Glucose,Bedside 215 (70-110)
[2023-11-10] MEDS: humaLOG 100 UNITS/ML 3ML VIAL (SSI) SQ ×3 (06:32→16:31)
[2023-11-10] MEDS: FLUTICASONE/SALMETEROL 250/50MCG DISKUS 1 PUFF IH ×2 (06:37→18:33)
[2023-11-10 06:38] VITALS: O2SAT 95
[2023-11-10 06:53] LABS: Basophils % 0.3 % (0.1-2.0); Eosinophils % 0.2 % (0.1-12.0); Hematocrit 40.2 % (37.0-47.0); Lymphocytes # 1.5 K/mm3 (0.7-4.5); Lymphocytes % 17.1 % (10-50); Mean Corpuscular HGB Conc 32.3 g/dL (31.8-35.4); Mean Corpuscular Hemoglobin 28.6 pg (27.0-31.2); Mean Corpuscular Volume 88.6 fl (81-99); Mean Platelet Volume 8.5 fl (7.4-10.4); Monocytes # 0.4 K/mm3 (0.1-1.0); Monocytes % 4.5 % (1.7-9.3); Neutrophils # 6.9 K/mm3 (1.8-7.8); Neutrophils % 78.1 % (37.0-80.0); Platelet Count 310 K/mm3 (142-424); Red Blood Count 4.54 M/mm3 (4.20-5.40); White Blood Count 8.8 K/mm3 (4.8-10.8)
[2023-11-10 07:11] LABS: Alanine Aminotransferase 198 U/L (12-78); Albumin Level 3.3 g/dl (3.5-5.0); Albumin/Globulin Ratio 1.2 (1.1-1.8); Alkaline Phosphatase 139 U/L (38-126); Anion Gap 10.8 mEq/L (5-15); Aspartate Amino Transferase 205 U/L (14-36); Bilirubin,Total 0.6 mg/dl (0.2-1.3); Blood Urea Nitrogen 40 mg/dl (7-17); Calcium 8.6 mg/dl (8.4-10.2); Carbon Dioxide 23 mmol/L (22.0-30.0); Chloride 97 mmol/L (98-107); Creatinine Clearance Estimated 62 mL/min (50-200); Estimated Glomerular Filt Rate 45 ml/min (>60); GFR (African American) 55 ML/MIN (>60); Globulin 2.7 g/dL (1.3-3.2); Glucose 211 mg/dl (74-100); Magnesium 1.9 mg/dl (1.6-2.3); Phosphorous 3.3 mg/dl (2.5-4.5); Potassium 3.8 mmoL/L (3.5-5.1); Sodium 127 mmol/L (136-145)
[2023-11-10 07:40] VITALS: BP 106/78; PULSE 93; RESP 18; TEMP 37.1; O2SAT 96
[2023-11-10] MEDS: LEVOFLOXACIN/D5W 750 MG/150 ML 750 MG/150 ML PIGGYBACK 100 MG IV (08:51)
[2023-11-10] MEDS: HEPARIN SODIUM 5,000 UNIT/ML VIAL 5000 UNIT SQ ×2 (08:52→20:39)
[2023-11-10] MEDS: POLYETHYLENE GLYCOL 3350 238GM POWDER 17 GM PO (08:52)
[2023-11-10] MEDS: OXYBUTYNIN 5MG TAB 5 MG PO ×2 (08:53→20:39)
[2023-11-10] MEDS: MORPHINE 4MG/ML SYRINGE 4 MG IV ×2 (09:46→21:24)
--- NOTE | 2023-11-10 11:23 | P.PN_ITS ---
Subjective *Date: 11/10/23 *Time: 11:24 Interval history: Still having some abdominal pain but better today. Was fine until she went to the bathroom this morning. White cell count is normalized. Feeling better with improved glucose control. No nausea or vomiting. No chest pain. Stable on room air. Medical Exam Vital signs and Labs for Last 24 Hours: Vital Signs Temp Pulse Pulse Resp BP Pulse Ox O2 Del Method 11/10/23 09:00 Room Air 11/10/23 08:00 Room Air 11/10/23 07:40 98.8 F 93 H 18 106/78 L 96 Room Air 11/10/23 06:39 Room Air 11/10/23 06:38 95 Room Air 11/10/23 05:00 Room Air 11/10/23 04:00 98.6 F 82 16 115/61 95 Room Air 11/10/23 03:00 Room Air 11/10/23 01:00 Room Air 11/09/23 23:00 Room Air 11/09/23 21:00 Room Air 11/09/23 20:00 Room Air 11/09/23 19:45 98.0 F 80 18 108/61 L 96 Room Air 11/09/23 19:00 Room Air 11/09/23 17:00 Room Air 11/09/23 16:00 98.0 F 93 H 16 104/72 L 96 Room Air 11/09/23 15:10 Room Air 11/09/23 13:00 Room Air 11/09/23 12:00 105 H 11/09/23 12:00 97.7 F Intake and Output 11/09/23 11/10/23 11/10/23 23:59 07:59 15:59 Intake Total 863 / 1943 535 / 535 Output Total 800 / 800 0 / 800 Balance 863 / 1343 -265 / -265 0 / -265 Intake: Intake, Oral Amount 360 / 1440 535 / 535 Intake, Total IV Amount 503 / 503 0.9% NaCl w/20mEq KCL 1,000 ml 353 / 353 @ 150 mls/hr IV .[id number] [facility] Rx# :[id number] Levofloxacin/D5w 750 mg/150 ml 150 / 150 750 mg In 150 ml @ 100 mls/hr IV Q24H [facility] Rx#:[id number] Output: Output, Urine Amount 800 / 800 0 / 800 Other: Number of Unmeasured Voids 0 1 Weight 82.282 kg Patient Weight 11/10/23 23:59 Weight 82.282 kg Laboratory Results - last 24 hr 11/09/23 12:19: POC Glucose 400 H* 11/09/23 12:55: Sodium 126 L, Potassium 4.4, Chloride 96 L, Carbon Dioxide 24, Anion Gap 10.4, BUN 50 H, Creatinine 1.40 H, Estimated Creat Clear 54, Estimated GFR 38 L, Est GFR ( Amer) 46 L, Glucose 395 H D, Calcium 8.9, Phosphorus 3.0, Magnesium 1.8 11/09/23 16:38: POC Glucose 151 H 11/09/23 18:10: Sodium 126 L, Potassium 4.2, Chloride 98, Carbon Dioxide 24, Anion Gap 8.2, BUN 44 H, Creatinine 1.50 H, Estimated Creat Clear 50, Estimated GFR 35 L, Est GFR ( Amer) 42 L, Glucose 185 H D, Calcium 8.7 11/09/23 19:58: POC Glucose 214 H 11/10/23 06:13: POC Glucose 215 H 11/10/23 06:24: WBC 8.8 D, RBC 4.54, Hgb 13.0, Hct 40.2, MCV 88.6, MCH 28.6, MCHC 32.3, RDW 15.0, Plt Count 310, MPV 8.5, Neut % (Auto) 78.1, Lymph % (Auto) 17.1, [place] % (Auto) 4.5, Eos % (Auto) 0.2, Baso % (Auto) 0.3, Neut # (Auto) 6.9, Lymph # (Auto) 1.5, [place] # (Auto) 0.4, Eos # (Auto) 0.0, Baso # (Auto) 0.0, Sodium 127 L, Potassium 3.8, Chloride 97 L, Carbon Dioxide 23, Anion Gap 10.8, BUN 40 H, Creatinine 1.20 H, Estimated Creat Clear 62, Estimated GFR 45 L, Est GFR ( Amer) 55 L D, Glucose 211 H, Calcium 8.6, Phosphorus 3.3, Magnesium 1.9, Total Bilirubin 0.6, AST 205 H, ALT 198 H D, Alkaline Phosphatase 139 H, Total Protein 6.0 L, Albumin 3.3 L, Globulin 2.7, Albumin/Globulin Ratio 1.2 I & O for Labs for Last 24 Hours: Intake & Output 11/07/23 11/08/23 11/09/23 11/10/23 23:59 23:59 23:59 23:59 Intake Total 26.899 / 26.899 1943 / 1943 535 / 535 Output Total 600 / 600 800 / 800 Balance 26.899 / 26.899 1343 / 1343 -265 / -265 Weight 82.27 kg 82.5 kg 82.282 kg Microbiology Reports for the Last 24 Hours: Microbiology 11/08/23 Unknown Urine,Clean Catch Urine Culture - Preliminary Gram Negative Rods Constitutional: Present no acute distress, obese, chronically ill appearing and cooperative Head: Present atraumatic and normocephalic ENT: Present normal exam Neck: Present normal inspection Respiratory: Present normal respiratory effort; Absent rhonchi, wheezes or crackles Cardiac: Present Reg Rate and Rhythm GI: Present soft, tenderness (Improved, right-sided but not as severe. No rebound or guarding) and normal bowel sounds; Absent distention Extremities: Present normal inspection and full ROM Skin: Present intact; Absent erythema Neuro: Present Grossly Intact, alert, awake, oriented x 3 and moves all extremities Assessment and Plan *Assessment and plan (1) Uncontrolled type 2 DM with hyperosmolar nonketotic hyperglycemia: Status: Acute Category: Medical Code(s): E11.00 - Type 2 diabetes mellitus with hyperosmolarity without nonketotic hyperglycemic-hyperosmolar coma ([facility]) (2) Leukocytosis: Status: Acute Category: Medical Code(s): D72.829 - Elevated white blood cell count, unspecified (3) Hyponatremia: Status: Acute Category: Medical Code(s): E87.1 - Hypo-osmolality and hyponatremia (4) UTI (urinary tract infection): Status: Acute Qualifiers: Hematuria presence: with hematuria Urinary tract infection type: site unspecified Qualified Code(s): N39.0 - Urinary tract infection, site not specified; R31.9 - Hematuria, unspecified Category: Medical Code(s): N39.0 - Urinary tract infection, site not specified (5) COPD (chronic obstructive pulmonary disease): Status: Acute Category: Medical Code(s): J44.9 - Chronic obstructive pulmonary disease, unspecified (6) HTN (hypertension), benign: Status: Acute Category: Medical Code(s): I10 - Essential (primary) hypertension (7) Tobacco dependence due to cigarettes: Status: Acute Category: Medical Code(s): F17.210 - Nicotine dependence, cigarettes, uncomplicated (8) Acute nontraumatic kidney injury: Status: Acute Category: Medical Code(s): N17.9 - Acute kidney failure, unspecified (9) Abdominal pain, right lower quadrant: Status: Acute Category: Medical Code(s): R10.31 - Right lower quadrant pain (10) Nausea vomiting and diarrhea: Status: Acute Category: Medical Code(s): R11.2 - Nausea with vomiting, unspecified; R19.7 - Diarrhea, unspecified Plan 63-year-old female who presents in distress with abdominal pain and discomfort. Workup consistent with HHS and new diagnosis of diabetes. Meeting SIRS criteria. Urine unremarkable, chest imaging negative, abdominal imaging negative. Received bolus in the ER. Started on insulin drip. Seeing improvement in glucose however gap remains elevated. Discussed case with ER, request admission for further management of HHS and monitoring cultures given h er SIRS criteria. Medicine agreed to admit for further management. On basal bolus regimen. Making adjustments. Treating for UTI. Anticipate discharge tomorrow. Continues to necessitate inpatient management. Problems addressed as follows: New diagnosis of uncontrolled diabetes with HHS and hyperglycemia Anion gap metabolic acidosis Hyponatremia -Responded to insulin drip. Gap closed. -Increase basal insulin to 40 units tonight. Continue sliding scale insulin ACHS. Morning glucose 211. Received 20 units of sliding scale in the past 24 hours. -Advance diet to diabetic diet. -A1c greater than 14 -Initiate metformin 500 mg twice daily. -Sodium 127, chloride 97, potassium 3.8, magnesium 1.9. Phosphorus 3.3. Repeat CBC, CMP, magnesium ordered for the morning. -Monitoring LFTs that are elevated today. AST 205, ALT 198. Bilirubin normal. Patient does not have gallbladder. Holding statin. Concern for secondary to her DKA and significant volume resuscitation. Leukocytosis: Gram-negative lj UTI -white cell count improved to 8.8. Continue levofloxacin 750 mg daily to cover gram-negative rods. Will treat for 7 days. -Urine culture still pending for final speciation and sensitivity. Blood cultures pending. -Morphine for abdominal pain, likely related to UTI. Monitor for toxicity given IV dosing ALE -Back to baseline today with BUN 40, creatinine 1.2. Showing continued improvement. -Continue to hold patient's lisinopril in the adding of ALE and normotensive state Hypertension: Holding home regimen in the setting of ALE and normotensive state COPD continue duo observe the 6 hours as needed, continue Dulera. Stable on room air. Monitor for oxygen requirement, goal sats greater 90%. Overactive bladder: Continue oxybutynin 10 mg daily GERD: Continue omeprazole daily Holding home Lipitor in the setting of DKA and abdominal pain Full code Heparin 5000units BID Diabetic diet
[2023-11-10 12:27] LABS: POC Glucose,Bedside 246 (70-110)
[2023-11-10 16:00] VITALS: BP 121/78; PULSE 87; RESP 19; TEMP 37; O2SAT 96
[2023-11-10] MEDS: NICOTINE 21MG/24HR PATCH 21 MG TD (16:30)
[2023-11-10] MEDS: METFORMIN 500MG TABLET 500 MG PO (16:31)
[2023-11-10 19:39] VITALS: BP 148/75; PULSE 85; RESP 18; TEMP 36.8; O2SAT 96
[2023-11-10] MEDS: INSULIN GLARGINE 100 UNITS/ML 3ML FLEXPEN 40 UNIT SQ (20:39)
[2023-11-10] MEDS: PANTOPRAZOLE 40MG TABLET 40 MG PO (20:39)
[2023-11-11 03:04] LABS: POC Glucose,Bedside 327 (70-110)
[2023-11-11 04:00] VITALS: BP 126/54; PULSE 90; RESP 18; TEMP 36.6; O2SAT 97; BMI 32.7
--- NOTE | 2023-11-11 04:48 | PC.NURSE ---
Pt is alert and oriented. Complained of pain 1 time, treated per aug. Pt has had no other complaints. Ambulates to the restroom. ACHS FS. Wheezing bilaterally. Pt has had no BM this shift. Call light in reach.
[2023-11-11] MEDS: FLUTICASONE/SALMETEROL 250/50MCG DISKUS 1 PUFF IH (06:17)
[2023-11-11 06:18] VITALS: O2SAT 98
[2023-11-11] MEDS: humaLOG 100 UNITS/ML 3ML VIAL (SSI) SQ ×2 (06:27→11:33)
[2023-11-11 07:00] LABS: Alanine Aminotransferase 155 U/L (12-78); Albumin Level 3.4 g/dl (3.5-5.0); Albumin/Globulin Ratio 1.2 (1.1-1.8); Alkaline Phosphatase 112 U/L (38-126); Anion Gap 10.6 mEq/L (5-15); Aspartate Amino Transferase 140 U/L (14-36); Bilirubin,Total 0.4 mg/dl (0.2-1.3); Blood Urea Nitrogen 34 mg/dl (7-17); Calcium 8.6 mg/dl (8.4-10.2); Carbon Dioxide 22 mmol/L (22.0-30.0); Chloride 101 mmol/L (98-107); Creatinine Clearance Estimated 63 mL/min (50-200); Estimated Glomerular Filt Rate 45 ml/min (>60); GFR (African American) 55 ML/MIN (>60); Globulin 2.8 g/dL (1.3-3.2); Glucose 205 mg/dl (74-100); Potassium 4.6 mmoL/L (3.5-5.1); Sodium 129 mmol/L (136-145); Total Protein,Serum 6.2 g/dl (6.3-8.2)
[2023-11-11 07:17] LABS: Basophils % 0.2 % (0.1-2.0); Eosinophils % 0.2 % (0.1-12.0); Hemoglobin 12.5 g/dL (12.2-16.2); Lymphocytes # 1.8 K/mm3 (0.7-4.5); Mean Corpuscular Hemoglobin 28.6 pg (27.0-31.2); Mean Corpuscular Volume 89.4 fl (81-99); Mean Platelet Volume 8.5 fl (7.4-10.4); Monocytes # 0.4 K/mm3 (0.1-1.0); Monocytes % 4.3 % (1.7-9.3); Neutrophils # 7.1 K/mm3 (1.8-7.8); Neutrophils % 76.3 % (37.0-80.0); Platelet Count 326 K/mm3 (142-424); Red Blood Count 4.37 M/mm3 (4.20-5.40); Red Cell Distribution Width 14.9 % (11.5-17.5); White Blood Count 9.3 K/mm3 (4.8-10.8)
[2023-11-11 07:46] LABS: Magnesium 1.8 mg/dl (1.6-2.3)
[2023-11-11 08:00] VITALS: BP 130/71; PULSE 92; RESP 18; TEMP 36.7; O2SAT 97
--- NOTE | 2023-11-11 08:06 | EXP.DC.SUM ---
General Admission date:: 11/08/23 Discharge date: 11/11/23 HPI HPI HPI: Ms. Quiroz is a 60-year-old female history of OPD, hypertension, obesity had states she has a family history of diabetes. She presented to the ER because of worsening nausea, vomiting, right lower quadrant pain. Pain has been progressively worsening over the past 6 days. In the past 24 hours however she has started having vomiting and diarrhea. On further review, patient complains of nocturia, polydipsia, polyuria for months to a year. Denies any hematemesis, hematochezia. No melena. No fever. Denies chest pain or shortness of breath. Symptoms brought her to the ER for further evaluation. She has been seeing cardiology and pulmonology for workup of weakness and dizziness. No previous known diagnosis of diabetes. Workup in the ER or patient was found to have leukocytosis, tachycardia, severely elevated glucose of almost 800. Anion gap of 21 but no ketones or acetone in her urine. Sodium 120. BUN and creatinine of 71 and 2.1 respectively. White cell count of 15.8. No focal source of infection identified, meeting SIRS criteria. CT of abdomen obtained that was unremarkable with no significant finding. No stones or hydronephrosis. Given findings of hyperglycemia and ALE, patient given fluid bolus and started on insulin drip. Medicine consulted for admission and further management. Patient admitted to stepdown level of care. Seeing improvement in glucose by the time she arrived to the floor, glucose in the mid 400s. States she is feeling little better after fluids. Appears alert and oriented but in mild to moderate distress. On room air. Significant family history of diabetes per her report. Hospital Course Hospital Course Hospital Course: 63-year-old female who presents in distress with abdominal pain and discomfort. Workup consistent with HHS and new diagnosis of diabetes. Meeting SIRS criteria. Urine unremarkable, chest imaging negative, abdominal imaging negative. Received bolus in the ER. Started on insulin drip. Seeing improvement in glucose however gap remains elevated. Discussed case with ER, request admission for further management of HHS and monitoring cultures given her SIRS criteria. Medicine agreed to admit for further management. Treated with DKA protocol. Anion gap closed. Was able to transition to basal bolus regimen. Given her improvement, will transition to just a basal regimen once daily along with oral meds. Treating for UTI. Will need close follow-up and further management as an outpatient. Overall doing well. Stable to discharge home for further outpatient management. Problems addressed as follows: New diagnosis of uncontrolled diabetes with HHS and hyperglycemia Anion gap metabolic acidosis Hyponatremia -Patient admitted to ICU on insulin drip. Showed good improvement with closure of gap over the first 24 hours. Was transition to a basal bolus regimen. Insulin titrated to Lantus 45 units nightly with good control. Initiated on metformin, increase to 1000 mg twice daily. A1c on admission greater than 14. Patient able to tolerate advancement in her diet. Gap remained closed during admission. Overall doing well. I have strong concern that uncontrolled diabetes underlined a lot of her complaints over the past few months. Would benefit from initiation of Jardiance once her UTI clears up to improve glucose control. Goal A1c less than 7. Close follow-up with PCP for further management. Counseled on monitoring glucose. Recommend monitoring fingerstick daily in the mornings. Encouraged to take log to PCP. -Holding her statin in the setting of mild elevation in transaminases. Okay to resume when liver enzymes normalize. Leukocytosis: Gram-negative lj UTI -White cell count elevated on admission. Urine culture positive for gram-negative rods. Was transition to levofloxacin. Plan to complete 7 days total of antibiotics. Urine culture still pending at time of discharge for speciation and sensitivity. Will follow-up and make adjustments if necessary. Abdominal pain showed improvement with treatment of infection and DKA. ALE -ALE present on admission. Showed improvement during admission, returned to baseline with creatinine 1.2 on day of discharge. Blood pressure has been in recommend Cynda Prill, HCTZ, amlodipine until follow-up and reevaluation for hypertension. Hypertension: Holding home regimen in the setting of ALE and normotensive state COPD: Resume home regimen at discharge. Stable on room air during admission Overactive bladder: Continue oxybutynin 10 mg daily GERD: Continue omeprazole daily Exam Data for Last 24 hours Vital signs and Labs for Last 24 Hours: Temp Pulse Resp BP Pulse Ox O2 Del Method O2 Flow Rate 97.9 F 90 18 126/54 L 98 Room Air 2 11/11/23 04:00 11/11/23 04:00 11/11/23 04:00 11/11/23 04:00 11/11/23 06:18 11/11/23 07:00 11/08/23 16:30 FiO2 35 11/09/23 05:00 Laboratory Results - last 24 hr 11/10/23 11:27: POC Glucose 246 H 11/10/23 15:59: POC Glucose 327 H* 11/11/23 06:27: WBC 9.3, RBC 4.37, Hgb 12.5, Hct 39.0, MCV 89.4, MCH 28.6, MCHC 32.0, RDW 14.9, Plt Count 326, MPV 8.5, Neut % (Auto) 76.3, Lymph % (Auto) 19.0, [place] % (Auto) 4.3, Eos % (Auto) 0.2, Baso % (Auto) 0.2, Neut # (Auto) 7.1, Lymph # (Auto) 1.8, [place] # (Auto) 0.4, Eos # (Auto) 0.0, Baso # (Auto) 0.0, Sodium 129 L, Potassium 4.6 D, Chloride 101, Carbon Dioxide 22, Anion Gap 10.6, BUN 34 H, Creatinine 1.20 H, Estimated Creat Clear 63, Estimated GFR 45 L, Est GFR ( Amer) 55 L, Glucose 205 H, Calcium 8.6, Magnesium 1.8, Total Bilirubin 0.4, AST 140 H D, ALT 155 H, Alkaline Phosphatase 112, Total Protein 6.2 L, Albumin 3.4 L, Globulin 2.8, Albumin/Globulin Ratio 1.2 I & O for Last 24 hours: Intake & Output 11/08/23 11/09/23 11/10/23 11/11/23 23:59 23:59 23:59 23:59 Intake Total 26.899 / 26.899 1943 / 1943 1015 / 1255 240 / 240 Output Total 600 / 600 800 / 800 600 / 600 Balance 26.899 / 26.899 1343 / 1343 215 / 455 -360 / -360 Weight 82.27 kg 82.5 kg 82.282 kg 83.779 kg Microbiology Reports for the Last 24 Hours: Microbiology 11/08/23 Unknown Urine,Clean Catch Urine Culture - Preliminary Gram Negative Rods Constitutional Constitutional: no acute distress, obese and cooperative *Routine HEENT Exam Head: Present normocephalic Eye: Present EOMI and PERRL ENT: Present mucous membranes moist *Routine Neck Exam Neck: Present supple; Absent lymphadenopathy *Routine Respiratory Exam Respiratory: Present CTA bilaterally *Routine Cardiovascular Exam Cardiovascular: Present RRR *Routine Abdominal Exam Abdominal: Present soft and normoactive bowel sounds; Absent tenderness *Routine Rectal Exam Patient deferred: visual exam *Routine Exam Patient deferred: external exam *Routine Extremities Exam Extremities: Absent cyanosis, clubbing or edema *Routine Skin Exam Skin: Present warm; Absent rash *Routine Neurological Exam Neurological: Present alert, oriented X3 and moving all extremities; Absent altered mental status Results Data Completed and Pending Labs on day of discharge: Labs from last 24 hours 11/11/23 11/10/23 11/10/23 06:27 15:59 11:27 WBC 9.3 RBC 4.37 Hgb 12.5 Hct 39.0 MCV 89.4 MCH 28.6 MCHC 32.0 RDW 14.9 Plt Count 326 MPV 8.5 Neut % (Auto) 76.3 Lymph % (Auto) 19.0 Huntington % (Auto) 4.3 Eos % (Auto) 0.2 Baso % (Auto) 0.2 Neut # (Auto) 7.1 Lymph # (Auto) 1.8 Huntington # (Auto) 0.4 Eos # (Auto) 0.0 Baso # (Auto) 0.0 Sodium 129 L Potassium 4.6 D Chloride 101 Carbon Dioxide 22 Anion Gap 10.6 BUN 34 H Creatinine 1.20 H Estimated Creat Clear 63 Estimated GFR 45 L Est GFR ( Amer) 55 L Glucose 205 H POC Glucose 327 H* 246 H Calcium 8.6 Magnesium 1.8 Total Bilirubin 0.4 AST 140 H D ALT 155 H Alkaline Phosphatase 112 Total Protein 6.2 L Albumin 3.4 L Globulin 2.8 Albumin/Globulin Ratio 1.2 Preliminary micro results at discharge 11/08/23 Unknown Urine Culture - Preliminary Urine,Clean Catch Gram Negative Rods DS: Diagnosis Discharge Diagnosis (1) Uncontrolled type 2 DM with hyperosmolar nonketotic hyperglycemia: Status: Acute Code(s): E11.00 - Type 2 diabetes mellitus with hyperosmolarity without nonketotic hyperglycemic-hyperosmolar coma ([facility]) (2) Leukocytosis: Status: Acute Code(s): D72.829 - Elevated white blood cell count, unspecified (3) Hyponatremia: Status: Acute Code(s): E87.1 - Hypo-osmolality and hyponatremia (4) UTI (urinary tract infection): Status: Acute Code(s): N39.0 - Urinary tract infection, site not specified Qualifiers: Hematuria presence: with hematuria Urinary tract infection type: site unspecified Qualified Code(s): N39.0 - Urinary tract infection, site not specified; R31.9 - Hematuria, unspecified (5) COPD (chronic obstructive pulmonary disease): Status: Acute Code(s): J44.9 - Chronic obstructive pulmonary disease, unspecified (6) HTN (hypertension), benign: Status: Acute Code(s): I10 - Essential (primary) hypertension (7) Tobacco dependence due to cigarettes: Status: Acute Code(s): F17.210 - Nicotine dependence, cigarettes, uncomplicated (8) Acute nontraumatic kidney injury: Status: Acute Code(s): N17.9 - Acute kidney failure, unspecified (9) Abdominal pain, right lower quadrant: Status: Acute Code(s): R10.31 - Right lower quadrant pain (10) Nausea vomiting and diarrhea: Status: Acute Code(s): R11.2 - Nausea with vomiting, unspecified; R19.7 - Diarrhea, unspecified Meds Home Medications and Allergies Home Medications Medication Instructions Recorded Confirmed Type mometasone-formoterol HFA 100 See Rx Instructions .Route 09/04/23 11/08/23 Rx mcg-5 mcg/actuation aerosol .COMPLEX #13 grams inhaler (Dulera) cyclobenzaprine 10 mg tablet 10 mg PO TIDP muscle spasms 11/08/23 11/09/23 History omeprazole 40 mg capsule,delayed 40 mg PO DAILY 11/08/23 11/09/23 History release oxybutynin chloride 10 mg 10 mg PO DAILY 11/08/23 11/09/23 History tablet,extended release 24 hr polyethylene glycol 3350 17 17 g PO DAILY 11/08/23 11/09/23 History gram/dose oral powder (ClearLax) amlodipine 10 mg tablet 10 mg PO DAILY 11/09/23 11/09/23 History atorvastatin 10 mg tablet 10 mg PO HS 11/09/23 11/09/23 History cholecalciferol (vitamin D3) 1,250 1,250 mcg PO WEEKLY 11/09/23 11/09/23 History mcg (50,000 unit) capsule ipratropium 0.5 mg-albuterol 3 mg 3 ml inhalation Q4HP PRN Shortness 11/09/23 11/09/23 History (2.5 mg base)/3 mL nebulization Of Breath soln ipratropium 20 mcg-albuterol 100 1 puff inhalation Q6HP PRN 11/09/23 11/09/23 History mcg/actuation mist for inhalation Shortness Of Breath (Combivent Respimat) lisinopril 20 2 tab PO DAILY 11/09/23 11/09/23 History mg-hydrochlorothiazide 25 mg tablet insulin glargine 100 unit/mL (3 45 unit (0.45 mL) SQ HS 30 days 11/11/23 Rx mL) subcutaneous pen (Lantus #13.5 mL Solostar U-100 Insulin) levofloxacin 750 mg tablet 750 mg PO Q24H 4 days #4 tabs 11/11/23 Rx metformin 1,000 mg tablet 1,000 mg PO BIDWMEAL 30 days #60 11/11/23 Rx tabs pantoprazole 40 mg tablet,delayed 40 mg PO HS 30 days #30 tabs 11/11/23 Rx release pen needle, diabetic 31 gauge x #100 ea 11/11/23 Rx 1/4 New Prescriptions to Start Prescriptions: insulin glargine [Lantus Solostar U-100 Insulin] Musa Cole levofloxacin Musa Cole metformin Musa Cole pantoprazole Musa Cole pen needle, diabetic Musa Cole Allergies Allergy/AdvReac Type Severity Reaction Status Date / Time NSAIDS (Non-Steroidal Allergy Intermediate Verified 11/01/23 09:45 Anti-Inflamma [NSAIDS (NON-STEROIDAL ANTI-INFLAMMA] codeine [CODEINE] Allergy Unknown Verified 11/01/23 09:45 tramadol [TRAMADOL] Allergy Unknown Verified 11/01/23 09:45 Milk Containing Products Allergy Verified 11/01/23 09:45 (Dairy) [Milk Containing Products] Discharge Plan Disposition Patient Disposition: Home, Self-Care Condition: Fair Discharge Order Discharge Orders: Discharge Order (Routine); Ordered 11/11/23 Ordered By: Musa Cole Follow up Plan Follow up with: Stephen Carmona APRN [Primary Care Provider] - 11/15/23 10:15 am Prescriptions/Medication Reconciliation: New insulin glargine [Lantus Solostar U-100 Insulin] 100 unit/mL (3 mL) Insulin Pen 45 unit SQ HS 30 Days Qty: 13.5 0RF metformin 1,000 mg tablet 1,000 mg PO BIDWMEAL 30 Days Qty: 60 0RF levofloxacin 750 mg tablet 750 mg PO Q24H 4 Days Qty: 4 0RF pantoprazole 40 mg Tablet,Delayed Release (Dr/Ec) 40 mg PO HS 30 Days Qty: 30 0RF (DME) pen needle, diabetic 31 gauge x 1/4 needle See Rx Instructions .Route Qty: 100 0RF Rx Instructions: As directed Continued Dulera 100-5 mcg/actuation HFA aerosol inhaler See Rx Instructions .ROUTE .COMPLEX Qty: 13 2RF Dose Instruction: INHALE 2 PUFFS BY MOUTH TWICE A DAY FOR COPD Rx Instructions: INHALE 2 PUFFS BY MOUTH TWICE A DAY FOR COPD cyclobenzaprine 10 mg tablet 10 mg PO TIDP Patient Comments: TAKE 1 TABLET BY MOUTH THREE TIMES A DAY NEEDED FOR MUSCLE SPASM MAY CAUSE DROWSINESS oxybutynin chloride 10 mg tablet extended release 24hr 10 mg PO DAILY Rx Instructions: TAKE 1 TABLET BY MOUTH ONCE DAILY omeprazole 40 mg capsule,delayed release(DR/EC) 40 mg PO DAILY Rx Instructions: TAKE 1 CAPSULE BY MOUTH ONCE DAILY polyethylene glycol 3350 [ClearLax] 17 gram/dose powder 17 g PO DAILY Rx Instructions: MIX 17 GRAMS (USING CAP) IN LIQUID AND DRINK ONCE DAILY cholecalciferol (vitamin D3) 1,250 mcg (50,000 unit) capsule 1,250 mcg PO WEEKLY Combivent Respimat 20-100 mcg/actuation mist 1 puff INHALATION Q6HP PRN (Reason: Shortness Of Breath) Patient Comments: INHALE 1 PUFF EVERY 6 HOURS DIRECTED ipratropium-albuterol 0.5 mg-3 mg(2.5 mg base)/3 mL solution for nebulization 3 ml inhalation Q4HP PRN (Reason: Shortness Of Breath) Rx Instructions: INHALE THE CONTENTS OF 1 VIAL VIA NEBULIZER EVERY 4-6 HOURS NEEDED FOR SHORTNESS OF BREATH OR WHEEZING Held atorvastatin 10 mg tablet 10 mg PO HS Hold Instructions: pending normalization of liver enzymes amlodipine 10 mg tablet 10 mg PO DAILY Hold Instructions: pending follow-up with PCP lisinopril-hydrochlorothiazide 20-25 mg tablet 2 tab PO DAILY Hold Instructions: pending follow-up with PCP or cardiology Problem Reconciliation Problems Reviewed?: Yes Patient Discharge Instructions ACTIVITY: Continue current activity DIET: continue same diet Additional Instructions: meter, strips, and lancets called in to [facility] Patient Instructions: Learn Your Diabetic ABCs, Urinary Tract Infection, Type 2 Diabetes, Constipation, Acute Abdominal Pain, Hyperosmolar Hyperglycemic State Providers Primary Care Provider: Stephen Carmona Admit Provider: Musa Cole Attending Provider: Musa Cole
[2023-11-11 08:30] VITALS: PULSE 88; O2SAT 94
[2023-11-11] MEDS: METFORMIN 500MG TABLET 500 MG PO (08:31)
[2023-11-11] MEDS: OXYBUTYNIN 5MG TAB 5 MG PO (08:31)
[2023-11-11] MEDS: HEPARIN SODIUM 5,000 UNIT/ML VIAL 5000 UNIT SQ (08:32)
[2023-11-11] MEDS: LEVOFLOXACIN/D5W 750 MG/150 ML 750 MG/150 ML PIGGYBACK 100 MG IV (08:32)
[2023-11-11] MEDS: POLYETHYLENE GLYCOL 3350 17 GM PACKET PO (08:37)
--- NOTE | 2023-11-11 10:16 | HMH.PHAINT1 ---
Pharmacy Intervention Comments: DISCHARGE MEDICATION COUNSELING PROVIDED. DISCUSSED THE FOLLOWING MEDICATION CHANGES: -HOLD THE FOLLOWING UNTIL YOU FOLLOW UP WITH PRIMARY CARE DOCTOR: LISINOPRIL/HCTZ, AMLODIPINE, ATORVASTATIN -START LANTUS (FOR BLOOD SUGAR, 45 UNITS AT BEDTIME, SIGNS/SYMPTOMS OF LOW BLOOD SUGAR, INJECTION TECHNIQUE) -LEVOFLOXACIN (ANTIBIOTIC, TAKE WITH FOOD, START TOMORROW, N/V/D POSSIBLE) -METFORMIN (FOR BLOOD SUGAR, TWICE DAILY, TAKE WITH FOOD, N/V/D POSSIBLE) -PANTOPRAZOLE (FOR REFLUX, TAKE AT BEDTIME, HEADACHE POSSIBLE) PATIENT DID ASK ABOUT TESTING SUPPLIES, I RELAYED QUESTION TO DR. DE LEÓN WHO STATED HE WOULD SEND IN PRESCRIPTIONS. NO FURTHER QUESTIONS AT THIS TIME.
[2023-11-11 11:36] LABS: POC Glucose,Bedside 177 (70-110)
--- NOTE | 2023-11-12 13:01 | PC.NURSE ---
Urine cultures received. Pt was admitted 11/07-11/10. Forwarded to hospitalist group
--- NOTE | 2023-11-12 15:49 | CARE MANAGER ---
Patient called back related to hospital discharge. She denies questions or concerns. She states she has a headache all day. We discussed her meds and follow up appointments. If her headache doesn't get better she will see if she can see the PCP sooner. INDERJIT Harry
== END 2023-11-11 12:37 | disposition home or self-care (01) | DRG 638 ==
LOC: ER 16:28 → 2ND 11-09 02:48
PROVIDERS: Physician Assistant; Admitting Provider Internal Medicine Adolescent Medicine; Emergency Provider Emergency Medicine; PCP Nurse Practitioner Family; Visit Provider Internal Medicine Adolescent Medicine
DX: E11.00 Type 2 diabetes mellitus with hyperosmolarity without nonketotic hyperglycemic-hyperosmolar coma (NKHHC) (principal); E87.1 Hypo-osmolality and hyponatremia; N17.9 Acute kidney failure, unspecified; N39.0 Urinary tract infection, site not specified; E87.20 Acidosis, unspecified; J44.9 Chronic obstructive pulmonary disease, unspecified; I10 Essential (primary) hypertension; F17.210 Nicotine dependence, cigarettes, uncomplicated; N32.81 Overactive bladder; K21.9 Gastro-esophageal reflux disease without esophagitis
CPT/HCPCS: 36415; 71045; 74176; 80048; 80053; 81001; 82009; 82803; 82962; 83036; 83605; 83690; 83735; 84100; 84145; 85007; 85025; 85610; 87040; 87086; 87088; 87186; 93005; 94640; 99285; J0131; J1956; J2405

== ENCOUNTER 2023-11-12 10:50 | Outpatient (CLI) | payer MEDICAID, SELFPAY ==
--- NOTE | 2023-11-12 | CA_ITS ---
APPROVED REPORT Exam: Pharmacologic Technologist: Elvira Ribera, Ht: 5 ft 3 in Wt: 186 lbs BSA: 1.88 m2 HR: 82 bpm BP: 144/90 mmHg Rhythm: SR Medical History Medical History: HTN, Diabetes, Smoking Medications: Amlodipine,,,,, Omeprazole,,,,, Atorvastatin,,,,, Duoneb,,,,, Dulera,,,,, Vit D3,,,,, Cefdinir,,,,, BenzONATATE,,,,, Cyclobenzaprine,,,,, Lisinopri/HCTZ,,,,, Oxybutynin Chloride ER,,,,, PolyethYLENE GLYCOL,,,,, Allergies: NSAIDS, CODEINE, TRAMADOL, MILK Cardiac Risk Factors: HTN, Diabetes,, FHX of CAD, Smoking Stress Test Details Test: LEXISCAN HR Resting HR: 76 bpm Max Heart Rate (APMHR): 157 bpm Max HR Achieved: 115 bpm Target HR (85% APMHR): 133 bpm % of APMHR: 73 Recovery HR: 98 bpm BP Resting BP: 144/90 mmHg Max BP: 151/79 mmHg Recovery BP: 141.0/92.0 mmHg ECG Resting ECG: SR Stress ECG: No significant ST changes Arrhythmia: None Clinical Exercise duration: 04:00 min Highest Stage Achieved: Stress ECG Conclusion Patient had no symptoms. Ectopy: None ST changes: None Conclusion: Unremarkable Lexiscan stress test. Myoview images reported separately. Test Summary REST 03:35 . . 76 . 144/ 90 . . Stage 1 01:00 . . 110 . . . . Stage 2 01:00 . . 109 . 137/ 85 . . Stage 3 01:00 . . 104 . 151/ 79 . . Stage 4 01:00 . . 99 . 149/ 78 . Stop exercise at 04:00 RECOVERY 01:00 . . 91 . . . . RECOVERY 02:00 . . 97 . 143/ 83 . . RECOVERY 03:00 . . 100 . 143/ 83 . . RECOVERY 04:00 . . 93 . 141/ 92 . . RECOVERY 04:10 . . 96 . 141/ 92 . . Electronically signed by : Sonam Herbert MD 11/13/2023 13:05:10
--- NOTE | 2023-11-12 10:54 | US_ITS ---
FINAL REPORT CLINICAL HISTORY: claudication, DM, current smoker, HTN, hyperlipidemia, bilateral rest pain FINDINGS: ANKLE-BRACHIAL PRESSURE INDICES Pressure indices are as follows: RIGHT LOWER EXTREMITY: Ankle-brachial pressure index: 1.1 Comments: Normal LEFT LOWER EXTREMITY: Ankle-brachial pressure index: 1.0 Comments: Normal IMPRESSION: No evidence of significant obstructive peripheral vascular disease of the lower extremities Reviewed, Interpreted and Dictated by Brody Gonzalez III, MD Transcribed by Jessi Lawrence Authenticated and [facility]
--- NOTE | 2023-11-12 11:23 | NM_ITS ---
APPROVED REPORT Exam: Nuclear Stress Test Indication: VALVULAR DISEASE, HTN,M DM , HYPERLIPIDEMIA, ANGINA, PALPITATIONSE Patient Location: Outpatient Stress Tech: Elvira Ribera OR Tech:Roma Ding, ARRT, RT (R)(N) Ht: 5 ft 3 in Wt: 182 lbs Bra Size: 44D HR: 76 bpm BP: 144/90 mmHg BSA: 1.86 m2 TID: 1.29 BMI: 32.2 History: VALVULAR DISEASE, HTN,M DM , HYPERLIPIDEMIA, ANGINA, PALPITATIONS Procedure: Patient received 0.4 mg of intravenous Lexiscan, resting heart rate 76 bpm, resting blood pressure 144/90 mmHg, with Lexiscan maximum heart rate achieved was 115 bpm which is % of the maximum predicted heart rate and blood pressure was 151/79 mmHg. With Lexiscan, patient denied any complaint of chest pain. Cardiac Stress and Resting SPECT Images: Cardiac Stress and Resting SPECT images were obtained using technetium 99m Myoview 32.1 mCi stress and 10.72 mCi at rest. Resting and stress imaging in supine positions demonstrate medium sized, moderate, fixed perfusion defect in the inferior LV wall. This is no longer visualized with prone stress imaging. Findings are suggestive of diaphragmatic attenuation. There is also increased transient ischemic dilatation ratio (TID 1.29), suggestive of possible multivessel disease or balanced ischemia. Gated imaging demonstrates normal global and regional LV systolic function. LVEF is calculated at 60%. Conclusion: Diaphragmatic attenuation is present. Increased transient ischemic dilatation ratio (TID 1.29), suggestive of possible multivessel disease or balanced ischemia. Gated imaging demonstrates normal global and regional LV systolic function. LVEF is calculated at 60%. Electronically signed by : Sonam Herbert MD 11/13/2023 13:06:38
[2023-11-12] MEDS: SODIUM CHLORIDE 0.9% 10ML SYR (RAD ONLY) 10 ML IV ×2 (14:06)
[2023-11-12] MEDS: ISOTOPE MYOVIEW (PER STUDY) 1 DOSE IV (14:06)
[2023-11-12] MEDS: REGADENOSON 0.4MG/5ML SYRINGE 0.400000000000000022 MG IV (14:06)
== END 2023-11-12 23:59 | disposition home or self-care (01) ==
LOC: RT 10:52
PROVIDERS: PCP Nurse Practitioner Family; Visit Provider Physician Assistant
DX: R07.9 Chest pain, unspecified (principal); R06.02 Shortness of breath; R93.89 Abnormal findings on diagnostic imaging of other specified body structures; I10 Essential (primary) hypertension; I73.9 Peripheral vascular disease, unspecified; F17.210 Nicotine dependence, cigarettes, uncomplicated
CPT/HCPCS: 78452; 93017; 93018; 93923; A9502; J2785

== ENCOUNTER 2023-11-13 12:55 | Outpatient (CLI) | payer MEDICAID, SELFPAY ==
--- NOTE | 2023-11-13 12:56 | CA_ITS ---
APPROVED REPORT EXAM: Comprehensive 2D, Doppler, and color-flow Echocardiogram User Experience Architect: Ibeth Montgomery RT(R) Ht: 5 ft 3 in Wt: 186lbs BSA: 1.88 BP: 133/62 mmHg Indications: dizziness, COPD, HTN, smoker, fatigue, syncope, SOB, abn CT lipomatous hypertrophy of the interatrial septum, hep C. 2D Dimensions LVEF (Avery's) 65.50 % F: 54 - 74 LV Volume 66.30 mL F: 46 - 106 LV Volume Index 35.3 mL/m2 F: 29 - 61 LA Volume 33.70 mL LA Volume Index 17.93 mL/m2 (M/F) 16-34 EF AP4 66.40 % EF AP2 64.3 % EF BP 65.5 % GL Strain -20.5 % M-Mode Dimensions RVDd 2.42 cm (0.9-2.6) LA Diam 3.45 cm (1.9-4.0) LVDd 4.55 cm (3.5-5.7) LVDs 3.48 cm (3.5-5.7) IVSd 0.98 cm (0.6-1.1) PWd 0.93 cm (0.6-1.1) EF (Teich) 47.10% FS 23.50% EDV (Teich) 94.90 mL ESV (Teich) 50.20 mL LV Diastology E Decel Time 177 (160-240 msec) E/A Ratio 0.9 Mitral Valve MV E Max Zafar. 68.0 (40-130 cm/s) MV A Velocity 80.0 (40-130 cm/s) E/A Ratio 0.85 MV PHT 52.0 ms Left Ventricle The left ventricle is normal size. The left ventricular systolic function is normal. The left ventricular ejection fraction is within the normal range. There is increased LV wall thickness. There is normal LV segmental wall motion. Diastolic function is indeterminate. LVEF is 65%. Right Ventricle The right ventricle is normal size. The right ventricular systolic function is normal. Atria The left atrium size is normal. The right atrium size is normal. The interatrial septum is not well-visualized. Aortic Valve The aortic valve is mildly thickened. There is no aortic valvular stenosis. Trace aortic regurgitation. Mitral Valve The mitral valve leaflets are mildly thickened. No evidence of mitral valve stenosis. Trace mitral regurgitation. Tricuspid Valve The tricuspid valve leaflets are thin and pliable. Trace tricuspid regurgitation. There is insufficient TR jet to estimate RVSP. Pulmonic Valve The pulmonary valve is grossly normal in structure. Trace pulmonic regurgitation. Great Vessels The aortic root is not well-visualized. The IVC is not well-visualized. Pericardium There is no pericardial effusion. Other Information Study Quality: Technically Difficult Conclusion Technically difficult study due to poor acoustic windows. Normal biventricular systolic function. No significant valvular stenosis or regurgitation. Electronically signed by : Sonam Herbert MD 11/15/2023 23:01:32
--- NOTE | 2023-11-13 12:58 | CA_ITS ---
FINAL REPORT TECHNIQUE: Color Doppler, duplex Doppler and ramirez scale sonography of the bilateral neck arterial vasculature was performed. Velocities were measured in the carotid arteries. Stenosis evaluation based on the validated velocity criteria. CLINICAL HISTORY: DIZZINESS,DM,SMOKER,HTN,SYNCOPE COMPARISON: None FINDINGS: The peak systolic velocity of the right common carotid artery is 50 cm/s. The peak systolic velocity of the right internal carotid artery is 59 cm/s and end diastolic velocity 30 cm/s. The ICA/CCA ratio is 1.4. A mild amount of plaque is present. The right external carotid artery is patent. The right vertebral artery is patent with antegrade flow. The peak systolic velocity of the left common carotid artery is 72 cm/s. The peak systolic velocity of the left internal carotid artery is 93 cm/s and end diastolic velocity 39 cm/s. The ICA/CCA ratio is 1.8. A mild amount of plaque is present. The left external carotid artery is patent.The left vertebral artery is patent with antegrade flow. IMPRESSION: Less than 50% bilateral carotid stenoses. Bilateral patent vertebral arteries with antegrade flow. If indicated, CTA or MRA could further evaluate. Reviewed, Interpreted and Dictated by Brody Gonzalez III, MD Transcribed by Deena Kessler Authenticated and . [facility]
== END 2023-11-13 23:59 | disposition home or self-care (01) ==
LOC: RT 12:56
PROVIDERS: PCP Nurse Practitioner Family; Visit Provider Physician Assistant
DX: R06.02 Shortness of breath (principal); R07.9 Chest pain, unspecified; R42 Dizziness and giddiness; R93.89 Abnormal findings on diagnostic imaging of other specified body structures; I10 Essential (primary) hypertension; I73.9 Peripheral vascular disease, unspecified; F17.210 Nicotine dependence, cigarettes, uncomplicated
CPT/HCPCS: 93306; 93880

== ENCOUNTER 2023-11-13 14:01 | Emergency (ER) | payer MEDICAID, SELFPAY ==
--- NOTE | 2023-11-13 14:05 | HMH.EDGENADL ---
Discharge Plan Disposition Patient Disposition: Home, Self-Care Condition: Good Prescriptions Prescriptions: No Action Dulera 100-5 mcg/actuation HFA aerosol inhaler See Rx Instructions .ROUTE .COMPLEX Qty: 13 2RF Dose Instruction: INHALE 2 PUFFS BY MOUTH TWICE A DAY FOR COPD Rx Instructions: INHALE 2 PUFFS BY MOUTH TWICE A DAY FOR COPD cyclobenzaprine 10 mg tablet 10 mg PO TIDP Patient Comments: TAKE 1 TABLET BY MOUTH THREE TIMES A DAY NEEDED FOR MUSCLE SPASM MAY CAUSE DROWSINESS oxybutynin chloride 10 mg tablet extended release 24hr 10 mg PO DAILY Rx Instructions: TAKE 1 TABLET BY MOUTH ONCE DAILY omeprazole 40 mg capsule,delayed release(DR/EC) 40 mg PO DAILY Rx Instructions: TAKE 1 CAPSULE BY MOUTH ONCE DAILY polyethylene glycol 3350 [ClearLax] 17 gram/dose powder 17 g PO DAILY Rx Instructions: MIX 17 GRAMS (USING CAP) IN LIQUID AND DRINK ONCE DAILY atorvastatin 10 mg tablet 10 mg PO HS Hold Instructions: pending normalization of liver enzymes amlodipine 10 mg tablet 10 mg PO DAILY Hold Instructions: pending follow-up with PCP lisinopril-hydrochlorothiazide 20-25 mg tablet 2 tab PO DAILY Hold Instructions: pending follow-up with PCP or cardiology cholecalciferol (vitamin D3) 1,250 mcg (50,000 unit) capsule 1,250 mcg PO WEEKLY Combivent Respimat 20-100 mcg/actuation mist 1 puff INHALATION Q6HP PRN (Reason: Shortness Of Breath) Patient Comments: INHALE 1 PUFF EVERY 6 HOURS DIRECTED ipratropium-albuterol 0.5 mg-3 mg(2.5 mg base)/3 mL solution for nebulization 3 ml inhalation Q4HP PRN (Reason: Shortness Of Breath) Rx Instructions: INHALE THE CONTENTS OF 1 VIAL VIA NEBULIZER EVERY 4-6 HOURS NEEDED FOR SHORTNESS OF BREATH OR WHEEZING insulin glargine [Lantus Solostar U-100 Insulin] 100 unit/mL (3 mL) Insulin Pen 45 unit SQ HS 30 Days Qty: 13.5 0RF metformin 1,000 mg tablet 1,000 mg PO BIDWMEAL 30 Days Qty: 60 0RF levofloxacin 750 mg tablet 750 mg PO Q24H 4 Days Qty: 4 0RF pantoprazole 40 mg Tablet,Delayed Release (Dr/Ec) 40 mg PO HS 30 Days Qty: 30 0RF (DME) pen needle, diabetic 31 gauge x 1/4 needle See Rx Instructions .Route Qty: 100 0RF Rx Instructions: As directed Referrals Follow up/Referrals: Stephen Carmona APRN [Primary Care Provider] - See instructions Activity Restrictions/Add. Instructions Additional Instructions/Restrictions: Please follow-up closely with your PCP. You may take Tylenol or Motrin every 4 hours as needed for symptoms. Return to ER for any worsening signs or symptoms as needed. Clinical Impressions Clinical Impression: Urinary frequency Headache Qualifiers: Headache type: unspecified Headache chronicity pattern: acute headache Intractability: not intractable Qualified Code(s): R51.9 - Headache, unspecified Discharge ED Provider: Leonardo Lopez General Adult HPI <AMRIK Jean Baptiste - Last Filed: 11/13/23 16:17> General Chief complaint: Headache Stated complaint: migrane and pain in urination Time Seen by Provider: 11/13/23 14:05 History of Present Illness HPI narrative: Patient presents for evaluation of headache and urinary symptoms. Patient reports that she has had a central bilateral headache at the top of her head since she was discharged from the hospital on Sunday. Patient was recently admitted on of last week for hyperosmolar nonketotic hyperglycemia, urinary tract symptoms and right lower quadrant pain. It was a first diagnosis of diabetes. Patient was ultimately discharged on both metformin and Lantus along with Levaquin for her urinary tract infection. Patient reports prior to her discharge she started having a central headache that is persistent to today. Patient reports that she has photophobia phonophobia nausea but no vomiting chest pain shortness of breath fever chills hemoptysis hematochezia melena diarrhea. Patient still reports right lower quadrant abdominal discomfort along with urinary symptoms of frequency and burning with urination. Related Data Home Medications Medication Instructions Recorded Confirmed cyclobenzaprine 10 mg tablet 10 mg PO TIDP muscle spasms 11/08/23 11/09/23 omeprazole 40 mg capsule,delayed 40 mg PO DAILY 11/08/23 11/09/23 release oxybutynin chloride 10 mg 10 mg PO DAILY 11/08/23 11/09/23 tablet,extended release 24 hr polyethylene glycol 3350 17 17 g PO DAILY 11/08/23 11/09/23 gram/dose oral powder (ClearLax) amlodipine 10 mg tablet 10 mg PO DAILY 11/09/23 11/09/23 atorvastatin 10 mg tablet 10 mg PO HS 11/09/23 11/09/23 cholecalciferol (vitamin D3) 1,250 1,250 mcg PO WEEKLY 11/09/23 11/09/23 mcg (50,000 unit) capsule ipratropium 0.5 mg-albuterol 3 mg 3 ml inhalation Q4HP PRN Shortness 11/09/23 11/09/23 (2.5 mg base)/3 mL nebulization Of Breath soln ipratropium 20 mcg-albuterol 100 1 puff inhalation Q6HP PRN 11/09/23 11/09/23 mcg/actuation mist for inhalation Shortness Of Breath (Combivent Respimat) lisinopril 20 2 tab PO DAILY 11/09/23 11/09/23 mg-hydrochlorothiazide 25 mg tablet Previous Rx's Medication Instructions Recorded mometasone-formoterol HFA 100 See Rx Instructions .Route 09/04/23 mcg-5 mcg/actuation aerosol .COMPLEX #13 grams inhaler (Dulera) insulin glargine 100 unit/mL (3 45 unit (0.45 mL) SQ HS 30 days 11/11/23 mL) subcutaneous pen (Lantus #13.5 mL Solostar U-100 Insulin) levofloxacin 750 mg tablet 750 mg PO Q24H 4 days #4 tabs 11/11/23 metformin 1,000 mg tablet 1,000 mg PO BIDWMEAL 30 days #60 11/11/23 tabs pantoprazole 40 mg tablet,delayed 40 mg PO HS 30 days #30 tabs 11/11/23 release pen needle, diabetic 31 gauge x #100 ea 11/11/23 1/4 Allergies Allergy/AdvReac Type Severity Reaction Status Date / Time NSAIDS (Non-Steroidal Allergy Intermediate Verified 11/01/23 09:45 Anti-Inflamma [NSAIDS (NON-STEROIDAL ANTI-INFLAMMA] codeine [CODEINE] Allergy Unknown Verified 11/01/23 09:45 tramadol [TRAMADOL] Allergy Unknown Verified 11/01/23 09:45 Milk Containing Products Allergy Verified 11/01/23 09:45 (Dairy) [Milk Containing Products] [facility] <AMRIK Jean Baptiste - Last Filed: 11/13/23 16:17> [facility] Disclaimer: The information contained in this section may have been updated after the patient was seen, as this information can be updated by other users. Medical History Abnormal chest CT Encounter for screening for malignant neoplasm of lung COPD mixed type Smoking greater than 30 pack years Urinary tract infection Pneumonia History of gastroesophageal reflux (GERD) Neuropathy Hepatitis C Asthma COPD (chronic obstructive pulmonary disease) HTN (hypertension), benign Surgical History History of surgery History of cholecystectomy H/O removal of cyst Family History Other Asthma Bleeding disorder Coronary artery disease Diabetes Heart attack Hyperlipidemia Hypertension Stroke Social History Smoking Status: Never smoker years smoked: 50 alcohol intake: never current occupational status: unemployed Travel in the last 8 weeks: None caffeine: Yes <AMRIK Jean Baptiste - Last Filed: 11/13/23 16:17> ROS Obtained: Yes Systems reviewed as appropriate & no additional complaints except as documented Physical Exam <AMRIK Jean Baptiste - Last Filed: 11/13/23 16:17> General General appearance: alert and in no apparent distress Head Head exam: atraumatic and normal inspection Eye Eye exam: Present normal appearance, PERRL and EOMI; Absent nystagmus ENT ENT exam: Present normal exam and normal oropharynx Neck Neck exam: Present normal inspection, full ROM and trachea midline; Absent tenderness, meningismus or lymphadenopathy Chest Chest inspection: Present normal inspection and symmetric chest wall rise Respiratory Respiratory exam: Present normal lung sounds bilaterally Cardiovascular Cardiovascular exam: Present regular rate and normal rhythm Abdominal Exam Abdominal exam: Present soft (Central obesity), tenderness (Right lower quadrant pain on palpation but no rebound or guarding or rigidity.) and normal bowel sounds; Absent guarding, rebound or rigidity Extremities Exam Extremities exam: Present normal inspection and full ROM Back Exam Back exam: Present normal inspection and full ROM; Absent tenderness Neurological Exam Neurological exam: Present alert, oriented X3, CN II-XII intact and normal gait; Absent motor sensory deficit Psychiatric Psychiatric exam: Present normal affect and normal mood Skin Skin exam: Present warm, dry and normal color Medical Decision Making <AMRIK Jean Baptiste - Last Filed: 11/13/23 16:17> Medical Records Medical records reviewed: Yes I reviewed the patient's medical records. Cruz Inquiry Pt receiving controlled substance: No Vital Signs: 11/13/23 14:33 11/13/23 14:35 11/13/23 15:00 Temperature 98.3 F Temperature Source Oral Pulse Rate 87 82 Pulse Rate [Left Radial] 83 Respiratory Rate 20 Blood Pressure 140/85 140/92 H Blood Pressure [Right Arm] 171/91 H Blood Pressure Mean [Right Arm] 117 02 Sat by Pulse Oximetry 98 99 98 Oxygen Delivery Method Room Air Room Air 11/13/23 15:30 11/13/23 16:00 11/13/23 16:30 Temperature 98.3 F Temperature Source Oral Pulse Rate 85 80 85 Pulse Rate [Left Radial] Respiratory Rate 20 Blood Pressure 142/86 H 143/83 H 131/79 Blood Pressure [Right Arm] Blood Pressure Mean [Right Arm] 02 Sat by Pulse Oximetry 97 98 Oxygen Delivery Method Room Air Lab Data Lab results reviewed: Yes I reviewed the patient's lab results. Lab Results 11/13/23 12:15: WBC 13.3 H D, RBC 4.38, Hgb 12.6, Hct 39.5, MCV 90.1, MCH 28.7, MCHC 31.9, RDW 15.2, Plt Count 355, MPV 8.2, Neut % (Auto) 78.4, Lymph % (Auto) 16.0, [place] % (Auto) 4.7, Eos % (Auto) 0.5, Baso % (Auto) 0.5, Neut # (Auto) 10.4 H, Lymph # (Auto) 2.1, [place] # (Auto) 0.6, Eos # (Auto) 0.1, Baso # (Auto) 0.1, PT 10.3, INR 0.95, Sodium 135 L, Potassium 4.2, Chloride 101, Carbon Dioxide 26, Anion Gap 12.2, BUN 21 H D, Creatinine 1.30 H, Estimated Creat Clear 58, Estimated GFR 41 L, Est GFR ( Amer) 50 L, Glucose 108 H, Calcium 9.2, Magnesium 1.5 L D, Total Bilirubin 0.4, AST 83 H D, ALT 114 H D, Alkaline Phosphatase 95, Total Protein 6.5, Albumin 3.8, Globulin 2.7, Albumin/Globulin Ratio 1.4 11/13/23 14:15: Urine Color Cancelled, Urine Appearance Cancelled, Urine pH Cancelled, Ur Specific [place] Cancelled, Urine Protein Cancelled, Urine Glucose (UA) Cancelled, Urine Ketones Cancelled, Urine Blood Cancelled, Urine Nitrate Cancelled, Urine Bilirubin Cancelled, Urine Urobilinogen Cancelled, Ur Leukocyte Esterase Cancelled, Urine RBC Cancelled, Urine WBC Cancelled, Ur Squamous Epith Cells Cancelled, Ur Transition Epith Cell Cancelled, Ur Renal Epithelial Cell Cancelled, Calcium Carbonate Cryst Cancelled, Calcium Phosphate Cryst Cancelled, Calcium Oxalate Crystal Cancelled, Cystine Crystals Cancelled, Uric Acid Crystals Cancelled, Triple Phos Crystals Cancelled, Tyrosine Crystals Cancelled, Other Crystals Cancelled, Amorphous Sediment Cancelled, Other Sediment Cancelled, Urine Bacteria Cancelled, Fatty Casts Cancelled, Hyaline Casts Cancelled, Fine Granular Casts Cancelled, Coarse Granular Casts Cancelled, Waxy Casts Cancelled, RBC Casts Cancelled, WBC Casts Cancelled, Other Casts Cancelled, Urine Mucus Cancelled, Urine Trichomonas Cancelled, Urine Yeast Cancelled, Urine Sperm Cancelled 11/13/23 15:53: Urine Color Yellow, Urine Appearance Clear, Urine pH 6.0, Ur Specific [place] 1.010, Urine Protein Negative, Urine Glucose (UA) Negative, Urine Ketones Negative, Urine Blood Negative, Urine Nitrate Negative, Urine Bilirubin Negative, Urine Urobilinogen 0.2, Ur Leukocyte Esterase Negative, Urine RBC None, Urine WBC None, Ur Squamous Epith Cells 3-5, Urine Bacteria Trace 11/13/23 12:15 11/13/23 12:15 Orders (Tests/Meds): ED MEDICATIONS Discontinued Medications Generic Name Dose Route Start Last Admin Trade Name Freq PRN Reason Stop Dose Admin Acetaminophen 1,000 mg 11/13/23 14:11 11/13/23 14:32 Acetaminophen 1,000mg/100ml Vial IV 11/13/23 14:12 1,000 mg ONCE ONE Administration Diphenhydramine HCl 50 mg 11/13/23 14:11 11/13/23 14:33 Diphenhydramine 50mg/Ml Vial IV 11/13/23 14:12 50 mg ONCE ONE Administration Lactated Ringer's 1,000 mls @ 999 mls/hr 11/13/23 14:11 11/13/23 14:33 Lactated Ringer's 1000 Ml Bag IV 11/13/23 15:11 999 mls/hr .Q1H1M ONE Administration Magnesium Sulfate 2 gm in 50 mls @ 50 mls/hr 11/13/23 15:02 11/13/23 15:12 Magnesium Sulfate 2gm/50ml Premix IV 11/13/23 16:01 50 mls/hr ONCE ONE Administration Prochlorperazine Edisylate 10 mg 11/13/23 14:11 11/13/23 14:32 Prochlorperazine 10mg/2ml Vial IV 11/13/23 14:12 10 mg ONCE ONE Administration ORDERS Category Date Time Status CBC w/Auto Diff [Complete Blood Count Auto Diff] Stat Lab 11/13/23 12:15 Completed CMP [Comprehensive Metabolic Panel] Stat Lab 11/13/23 12:15 Completed INR [Prothrombin Time INR] Stat Lab 11/13/23 12:15 Completed Magnesium Stat Lab 11/13/23 12:15 Completed Urinalysis and Microscopic Stat Lab 11/13/23 15:53 Completed Medical Decision Narrative: In summary patient is a 63-year-old female who presents to the emergency department for evaluation of headache and urinary symptoms. Patient is newly diagnosed type II diabetic that is being treated with both oral agents and insulin. Patient had pansensitive E. coli and was discharged on Levaquin. Patient is hemodynamically stable upon arrival, afebrile. Physical exam is remarkable only for right lower quadrant abdominal pain with no rebound guarding or rigidity with normal bowel sounds. Pain is in the same location she had been admitted her on of last week. Patient has no focal neurologic signs has no meningeal signs has no nuchal rigidity has full flexion extension and rotation of her neck without pain.. Differential diagnosis includes routine headache versus migraine headache versus CVA versus space-occupying lesion versus polyuria due to hyperglycemia versus resolving urinary tract infection etc. Initial workup will be conducted with hematologic labs urinalysis fingerstick blood sugar. Initial interventions include lactated Ringer's bolus, acetaminophen, Compazine, Benadryl until hematologic labs comes back and then may consider Decadron and Toradol. Initial workup reviewed by me shows that her hematologic labs are nonactionable including now normal urinalysis.. Upon repeat evaluation patient reports that her headache and her right lower quadrant discomfort is significantly improved after intervention.. Given this patient is appropriate for discharge with close follow-up with her PCP. Patient advised to take Tylenol alternating with Motrin as needed for symptoms. Patient continue antibiotics. <Leonardo Lopez MD - Last Filed: 11/13/23 18:43> Vital Signs: 11/13/23 14:33 11/13/23 14:35 11/13/23 15:00 Temperature 98.3 F Temperature Source Oral Pulse Rate 87 82 Pulse Rate [Left Radial] 83 Respiratory Rate 20 Blood Pressure 140/85 140/92 H Blood Pressure [Right Arm] 171/91 H Blood Pressure Mean [Right Arm] 117 02 Sat by Pulse Oximetry 98 99 98 Oxygen Delivery Method Room Air Room Air 11/13/23 15:30 11/13/23 16:00 11/13/23 16:30 Temperature 98.3 F Temperature Source Oral Pulse Rate 85 80 85 Pulse Rate [Left Radial] Respiratory Rate 20 Blood Pressure 142/86 H 143/83 H 131/79 Blood Pressure [Right Arm] Blood Pressure Mean [Right Arm] 02 Sat by Pulse Oximetry 97 98 Oxygen Delivery Method Room Air Lab Data Lab Results 11/13/23 12:15: WBC 13.3 H D, RBC 4.38, Hgb 12.6, Hct 39.5, MCV 90.1, MCH 28.7, MCHC 31.9, RDW 15.2, Plt Count 355, MPV 8.2, Neut % (Auto) 78.4, Lymph % (Auto) 16.0, [place] % (Auto) 4.7, Eos % (Auto) 0.5, Baso % (Auto) 0.5, Neut # (Auto) 10.4 H, Lymph # (Auto) 2.1, [place] # (Auto) 0.6, Eos # (Auto) 0.1, Baso # (Auto) 0.1, PT 10.3, INR 0.95, Sodium 135 L, Potassium 4.2, Chloride 101, Carbon Dioxide 26, Anion Gap 12.2, BUN 21 H D, Creatinine 1.30 H, Estimated Creat Clear 58, Estimated GFR 41 L, Est GFR ( Amer) 50 L, Glucose 108 H, Calcium 9.2, Magnesium 1.5 L D, Total Bilirubin 0.4, AST 83 H D, ALT 114 H D, Alkaline Phosphatase 95, Total Protein 6.5, Albumin 3.8, Globulin 2.7, Albumin/Globulin Ratio 1.4 11/13/23 14:15: Urine Color Cancelled, Urine Appearance Cancelled, Urine pH Cancelled, Ur Specific [place] Cancelled, Urine Protein Cancelled, Urine Glucose (UA) Cancelled, Urine Ketones Cancelled, Urine Blood Cancelled, Urine Nitrate Cancelled, Urine Bilirubin Cancelled, Urine Urobilinogen Cancelled, Ur Leukocyte Esterase Cancelled, Urine RBC Cancelled, Urine WBC Cancelled, Ur Squamous Epith Cells Cancelled, Ur Transition Epith Cell Cancelled, Ur Renal Epithelial Cell Cancelled, Calcium Carbonate Cryst Cancelled, Calcium Phosphate Cryst Cancelled, Calcium Oxalate Crystal Cancelled, Cystine Crystals Cancelled, Uric Acid Crystals Cancelled, Triple Phos Crystals Cancelled, Tyrosine Crystals Cancelled, Other Crystals Cancelled, Amorphous Sediment Cancelled, Other Sediment Cancelled, Urine Bacteria Cancelled, Fatty Casts Cancelled, Hyaline Casts Cancelled, Fine Granular Casts Cancelled, Coarse Granular Casts Cancelled, Waxy Casts Cancelled, RBC Casts Cancelled, WBC Casts Cancelled, Other Casts Cancelled, Urine Mucus Cancelled, Urine Trichomonas Cancelled, Urine Yeast Cancelled, Urine Sperm Cancelled 11/13/23 15:53: Urine Color Yellow, Urine Appearance Clear, Urine pH 6.0, Ur Specific [place] 1.010, Urine Protein Negative, Urine Glucose (UA) Negative, Urine Ketones Negative, Urine Blood Negative, Urine Nitrate Negative, Urine Bilirubin Negative, Urine Urobilinogen 0.2, Ur Leukocyte Esterase Negative, Urine RBC None, Urine WBC None, Ur Squamous Epith Cells 3-5, Urine Bacteria Trace Orders (Tests/Meds): ED MEDICATIONS Discontinued Medications Generic Name Dose Route Start Last Admin Trade Name Freq PRN Reason Stop Dose Admin Acetaminophen 1,000 mg 11/13/23 14:11 11/13/23 14:32 Acetaminophen 1,000mg/100ml Vial IV 11/13/23 14:12 1,000 mg ONCE ONE Administration Diphenhydramine HCl 50 mg 11/13/23 14:11 11/13/23 14:33 Diphenhydramine 50mg/Ml Vial IV 11/13/23 14:12 50 mg ONCE ONE Administration Lactated Ringer's 1,000 mls @ 999 mls/hr 11/13/23 14:11 11/13/23 14:33 Lactated Ringer's 1000 Ml Bag IV 11/13/23 15:11 999 mls/hr .Q1H1M ONE Administration Magnesium Sulfate 2 gm in 50 mls @ 50 mls/hr 11/13/23 15:02 11/13/23 15:12 Magnesium Sulfate 2gm/50ml Premix IV 11/13/23 16:01 50 mls/hr ONCE ONE Administration Prochlorperazine Edisylate 10 mg 11/13/23 14:11 11/13/23 14:32 Prochlorperazine 10mg/2ml Vial IV 11/13/23 14:12 10 mg ONCE ONE Administration ORDERS Category Date Time Status CBC w/Auto Diff [Complete Blood Count Auto Diff] Stat Lab 11/13/23 12:15 Completed CMP [Comprehensive Metabolic Panel] Stat Lab 11/13/23 12:15 Completed INR [Prothrombin Time INR] Stat Lab 11/13/23 12:15 Completed Magnesium Stat Lab 11/13/23 12:15 Completed Urinalysis and Microscopic Stat Lab 11/13/23 15:53 Completed Medical Decision Narrative: In summary patient is a 63-year-old female who presents to the emergency department for evaluation of headache and urinary symptoms. Patient is newly diagnosed type II diabetic that is being treated with both oral agents and insulin. Patient had pansensitive E. coli and was discharged on Levaquin. Patient is hemodynamically stable upon arrival, afebrile. Physical exam is remarkable only for right lower quadrant abdominal pain with no rebound guarding or rigidity with normal bowel sounds. Pain is in the same location she had been admitted her on of last week. Patient has no focal neurologic signs has no meningeal signs has no nuchal rigidity has full flexion extension and rotation of her neck without pain.. Differential diagnosis includes routine headache versus migraine headache versus CVA versus space-occupying lesion versus polyuria due to hyperglycemia versus resolving urinary tract infection etc. Initial workup will be conducted with hematologic labs urinalysis fingerstick blood sugar. Initial interventions include lactated Ringer's bolus, acetaminophen, Compazine, Benadryl until hematologic labs comes back and then may consider Decadron and Toradol. Initial workup reviewed by me shows that her hematologic labs are nonactionable including now normal urinalysis.. Upon repeat evaluation patient reports that her headache and her right lower quadrant discomfort is significantly improved after intervention.. Given this patient is appropriate for discharge with close follow-up with her PCP. Patient advised to take Tylenol alternating with Motrin as needed for symptoms. Patient continue antibiotics. I was consulted by the GERRY, and we discussed the complexity of the problems being addressed. I approved the treatment and management plan for this patient?s care in the Emergency Department, thus performing a substantive portion of the medical decision making. Leonardo Lopez MD Critical Care <AMRIK Jean Baptiste - Last Filed: 11/13/23 16:17> Critical Care Time Critical Care Time: No
[2023-11-13 14:22] VITALS: BMI 32.5
[2023-11-13 14:27] LABS: Basophils # 0.1 K/mm3 (0-0.2); Basophils % 0.5 % (0.1-2.0); Eosinophils # 0.1 K/mm3 (0.0-0.4); Eosinophils % 0.5 % (0.1-12.0); Hematocrit 39.5 % (37.0-47.0); Hemoglobin 12.6 g/dL (12.2-16.2); Lymphocytes # 2.1 K/mm3 (0.7-4.5); Mean Corpuscular HGB Conc 31.9 g/dL (31.8-35.4); Mean Corpuscular Hemoglobin 28.7 pg (27.0-31.2); Mean Corpuscular Volume 90.1 fl (81-99); Mean Platelet Volume 8.2 fl (7.4-10.4); Monocytes # 0.6 K/mm3 (0.1-1.0); Monocytes % 4.7 % (1.7-9.3); Neutrophils # 10.4 K/mm3 (1.8-7.8); Neutrophils % 78.4 % (37.0-80.0); Platelet Count 355 K/mm3 (142-424); Red Blood Count 4.38 M/mm3 (4.20-5.40); Red Cell Distribution Width 15.2 % (11.5-17.5); White Blood Count 13.3 K/mm3 (4.8-10.8)
--- NOTE | 2023-11-13 14:31 | ECG_ITS ---
APPROVED REPORT Exam: Resting ECG HR:77 bpm ECG Measurements Heart Rate 77 AXES MO 145 P 67 QRSd 86 QRS 55 QT 381 T 69 QTc 412 Conclusion SINUS RHYTHM LOW QRS VOLTAGE IN PRECORDIAL LEADS [QRS DEFLECTION < 1.0 mV IN CHEST LEADS] BORDERLINE ECG Electronically signed by : JASON DOWD, 11/13/2023 16:27:20
[2023-11-13] MEDS: PROCHLORPERAZINE 10MG/2ML VIAL 10 MG IV (14:32)
[2023-11-13] MEDS: ACETAMINOPHEN 1,000MG/100ML VIAL 1000 MG IV (14:32)
[2023-11-13 14:33] VITALS: BP 140/85; PULSE 87; O2SAT 98
[2023-11-13] MEDS: diphenhydrAMINE 50MG/ML VIAL 50 MG IV (14:33)
[2023-11-13] MEDS: LACTATED RINGERS 1000ML 1,000 ML 999 ML IV (14:33)
[2023-11-13 14:35] VITALS: BP 171/91; PULSE 83; RESP 20; TEMP 36.8; O2SAT 99; BMI 32.5
[2023-11-13 14:40] LABS: Alanine Aminotransferase 114 U/L (12-78); Albumin Level 3.8 g/dl (3.5-5.0); Albumin/Globulin Ratio 1.4 (1.1-1.8); Alkaline Phosphatase 95 U/L (38-126); Anion Gap 12.2 mEq/L (5-15); Aspartate Amino Transferase 83 U/L (14-36); Bilirubin,Total 0.4 mg/dl (0.2-1.3); Blood Urea Nitrogen 21 mg/dl (7-17); Calcium 9.2 mg/dl (8.4-10.2); Carbon Dioxide 26 mmol/L (22.0-30.0); Chloride 101 mmol/L (98-107); Creatinine Clearance Estimated 58 mL/min (50-200); Estimated Glomerular Filt Rate 41 ml/min (>60); GFR (African American) 50 ML/MIN (>60); Globulin 2.7 g/dL (1.3-3.2); Glucose 108 mg/dl (74-100); INR 0.95 (0.9-1.1); Magnesium 1.5 mg/dl (1.6-2.3); Potassium 4.2 mmoL/L (3.5-5.1); Prothrombin Time 10.3 seconds (10.1-12.5); Sodium 135 mmol/L (136-145); Total Protein,Serum 6.5 g/dl (6.3-8.2)
--- NOTE | 2023-11-13 14:41 | PC.NURSE ---
Pt provided with warm blanket. No other needs voiced at this time.
[2023-11-13 15:00] VITALS: BP 140/92; PULSE 82; O2SAT 98
[2023-11-13] MEDS: MAGNESIUM SULFATE IN WATER 2 GM/50 ML PIGGYBACK IV (15:12)
[2023-11-13 15:30] VITALS: BP 142/86; PULSE 85; O2SAT 97
[2023-11-13 16:00] VITALS: BP 143/83; PULSE 80; O2SAT 98
[2023-11-13 16:01] LABS: Microscopic, Urine URINE MICROSCOPIC (MICROSCOPIC)
[2023-11-13 16:07] LABS: Appearance,Urine CLEAR (Clear); Bilirubin,Urine Negative (Negative); Blood, Urine Negative (Negative); Color,Urine YELLOW (Yellow); Glucose,Urine (UA) Negative (Negative); Ketones,Urine Negative (Negative); Leukocyte Esterase,Urine Negative (Negative); Nitrate,Urine Negative (Negative); Protein,Urine Negative (Negative); Urobilinogen,Urine 0.2 EU/dl (0.2)
[2023-11-13 16:30] VITALS: BP 131/79; PULSE 85; RESP 20; TEMP 36.8; O2SAT 97
[2023-11-13 16:52] LABS: Bacteria,Urine Trace /lpf
== END 2023-11-13 16:32 | disposition home or self-care (01) ==
PROVIDERS: Physician Assistant; Emergency Provider Emergency Medicine; PCP Nurse Practitioner Family
DX: G44.89 Other headache syndrome (principal); R10.31 Right lower quadrant pain; R30.0 Dysuria; E11.9 Type 2 diabetes mellitus without complications; J44.9 Chronic obstructive pulmonary disease, unspecified; I10 Essential (primary) hypertension; Z87.891 Personal history of nicotine dependence; Z79.4 Long term (current) use of insulin; Z79.84 Long term (current) use of oral hypoglycemic drugs
CPT/HCPCS: 80053; 81001; 83735; 85025; 85610; 93005; 96365; 96375; 99284; J0131; J3475

== ENCOUNTER 2023-11-27 09:56 | Outpatient (CLI) | payer MEDICAID, SELFPAY ==
[2023-11-27 10:40] VITALS: PULSE 79; PULSE 85
[2023-11-27] MEDS: ALBUTEROL 0.083% 2.5 MG/3 ML NEB IH (10:40)
== END 2023-11-27 23:59 | disposition home or self-care (01) ==
LOC: RT 09:56
PROVIDERS: PCP Nurse Practitioner Family; Visit Provider Internal Medicine Pulmonary Disease
DX: R06.09 Other forms of dyspnea (principal)
CPT/HCPCS: 94060; 94618; 94640; 94726; 94729

== ENCOUNTER 2024-01-22 13:31 | Outpatient (CLI) | payer MEDICAID, SELFPAY | END 2024-01-22 23:59 | disposition home or self-care (01) | LOC: LAB.DROPOF 01-23 13:32 | PROVIDERS: PCP Nurse Practitioner Family; Visit Provider Nurse Practitioner Family | DX: R35.0 Frequency of micturition (principal) | CPT/HCPCS: 87086 ==

== ENCOUNTER 2024-04-22 15:04 | Outpatient (CLI) | payer MEDICAID, SELFPAY ==
--- NOTE | 2024-04-22 15:08 | MM_ITS ---
PROCEDURE INFORMATION: Exam: MG Bilateral Screening 3D Mammography Exam date and time: 04/22/2024 3:08 PM Age: 63 years old Clinical indication: Screening examination TECHNIQUE: Imaging protocol: Bilateral Screening tomosynthesis and 2D mammography including computer-aided detection (CAD) when performed. COMPARISON: 1. MG MM DIG SCREENING MAMM BI W/CAD 07/14/2022 3:54 PM 2. MG SCRN MAMMO W/CAD BILAT 01/19/2017 9:03 AM FINDINGS: MAMMOGRAPHY: Breast composition: There are scattered areas of fibroglandular density. Mass: No suspicious masses. Architectural distortion: None. Calcifications: No suspicious calcifications. Asymmetric density: None. Skin thickening: None. Axillary adenopathy: None. IMPRESSION: No mammographic evidence of malignancy. Annual screening is recommended unless otherwise clinically indicated. ASSESSMENT: BI-RADS Category 1: Negative.
[2024-04-22 18:43] LABS: Basophils # 0.1 K/mm3 (0-0.2); Basophils % 0.7 % (0.1-2.0); Eosinophils # 0.5 K/mm3 (0.0-0.4); Eosinophils % 4.4 % (0.1-12.0); Hematocrit 46.8 % (37.0-47.0); Lymphocytes # 1.8 K/mm3 (0.7-4.5); Lymphocytes % 15.7 % (10-50); Mean Corpuscular Hemoglobin 27.5 pg (27.0-31.2); Mean Platelet Volume 7.9 fl (7.4-10.4); Monocytes # 0.6 K/mm3 (0.1-1.0); Monocytes % 5.8 % (1.7-9.3); Neutrophils # 8.2 K/mm3 (1.8-7.8); Neutrophils % 73.5 % (37.0-80.0); Platelet Count 361 K/mm3 (142-424); Red Blood Count 5.45 M/mm3 (4.20-5.40); Red Cell Distribution Width 15.7 % (11.5-17.5); White Blood Count 11.1 K/mm3 (4.8-10.8)
[2024-04-22 19:03] LABS: Hemoglobin A1C 5.5 % (4.0-6.0)
[2024-04-22 19:17] LABS: Albumin Level 4.6 g/dl (3.5-5.0); Chloride 95 mmol/L (98-107); Sodium 136 mmol/L (136-145)
[2024-04-22 19:20] LABS: Alanine Aminotransferase 36 U/L (12-78); Albumin/Globulin Ratio 1.7 (1.1-1.8); Alkaline Phosphatase 89 U/L (38-126); Aspartate Amino Transferase 34 U/L (14-36); Bilirubin,Total 0.4 mg/dl (0.2-1.3); Blood Urea Nitrogen 29 mg/dl (7-17); Carbon Dioxide 28 mmol/L (22.0-30.0); Cholesterol 245 mg/dl (140-200); Estimated Glomerular Filt Rate 45 ml/min (>60); GFR (African American) 55 ML/MIN (>60); Globulin 2.7 g/dL (1.3-3.2); Glucose 117 mg/dl (74-100); Total Protein,Serum 7.3 g/dl (6.3-8.2); Triglycerides 235 mg/dl (30-150); VLDL Cholesterol 47 mg/dL (0-40)
[2024-04-22 19:21] LABS: Chol/HDL Ratio 6.1 (1-3.5); HDL Cholesterol 40 mg/dl (40-60)
[2024-04-22 19:31] LABS: Direct LDL Cholesterol 156.34 mg/dL (100-129)
[2024-04-22 19:49] LABS: Thyroid Stimulating Hormone 4.14 uIU/mL (0.465-4.68)
[2024-04-22 20:04] LABS: HIV (1&2) Antibody Rapid NONREACTIVE (NONREACTIVE)
[2024-04-25 17:22] LABS: HCV Ab Reactive (Non Reactive)
== END 2024-04-22 23:59 | disposition home or self-care (01) ==
LOC: RAD 15:05
PROVIDERS: PCP Nurse Practitioner Family; Visit Provider Nurse Practitioner Family
DX: Z12.39 Encounter for other screening for malignant neoplasm of breast (principal); E78.2 Mixed hyperlipidemia; E11.9 Type 2 diabetes mellitus without complications; Z79.4 Long term (current) use of insulin; E66.9 Obesity, unspecified; Z68.33 Body mass index [BMI] 33.0-33.9, adult; Z11.4 Encounter for screening for human immunodeficiency virus [HIV]; Z11.59 Encounter for screening for other viral diseases
CPT/HCPCS: 77063; 77067; 80050; 80053; 80061; 82306; 83036; 84443; 85025; 86803; 87389

== ENCOUNTER 2024-07-31 09:37 | Emergency (ER) | payer MEDICAID, SELFPAY ==
[2024-07-31 10:02] VITALS: BP 126/76; PULSE 81; RESP 18; TEMP 36.8; O2SAT 92; BMI 34.2
--- NOTE | 2024-07-31 10:05 | ED_ITS ---
Discharge Plan Disposition Patient Disposition: Home, Self-Care Condition: Good Prescriptions Prescriptions: New benzonatate 100 mg capsule 100 mg PO TIDP PRN (Reason: Cough) Qty: 30 0RF methylprednisolone 4 mg Tablets,Dose Pack 4 mg PO DIRECTED 6 Days Qty: 21 0RF Rx Instructions: Take 1 pack as directed for 6 days amoxicillin-pot clavulanate 875-125 mg Tablet 1 tab PO Q12H Qty: 20 0RF promethazine-DM 6.25-15 mg/5 mL Syrup 5 ml PO Q6H PRN (Reason: Cough) Qty: 240 0RF No Action (DME) pen needle, diabetic [BD Ultra-Fine Mini Pen Needle] 31 gauge x 3/16 needle See Rx Instructions .ROUTE .MEDSUPPLY Qty: 1200 Patient Comments: USE DIRECTED Rx Instructions: As directed (DME) lancets [FreeStyle Lancets] 28 gauge misc See Rx Instructions .ROUTE .MEDSUPPLY Qty: 100 Patient Comments: USE 1 LANCET TO CHECK GLUCOSE ONCE DAILY Rx Instructions: As directed (DME) blood-glucose meter [FreeStyle Lite Meter] Kit See Rx Instructions .ROUTE .MEDSUPPLY Qty: 1 Patient Comments: USE TO CHECK GLUCOSE ONCE DAILY Rx Instructions: As directed aspirin [Adult Aspirin Regimen] 81 mg tablet,delayed release (DR/EC) 81 mg PO DAILY Qty: 90 1RF (DME) Blood Glucose Test Strip See Rx Instructions .ROUTE .MEDSUPPLY Qty: 50 2RF Rx Instructions: Twice daily metformin 1,000 mg tablet 1,000 mg PO BIDWMEAL 30 Days Qty: 60 3RF (DME) pen needle, diabetic 31 gauge x 1/4 needle See Rx Instructions .Route Qty: 100 1RF Rx Instructions: As directed (DME) Dexcom G7 Metal Molder Misc See Rx Instructions .Route Qty: 1 0RF Rx Instructions: As directed nicotine (polacrilex) 2 mg gum 2 mg buccal Q2H Qty: 396 0RF Rx Instructions: Nicotine cravings Weeks 1-6: Chew 1 piece every 2 hours Week 7-9: Chew 1 piece every 4 hours Weeks 10-12: Chew 1 piece every 8 hours (DME) Blood Pressure Cuff Misc See Rx Instructions .Route Qty: 1 0RF Rx Instructions: Daily oxybutynin chloride 10 mg tablet extended release 24hr See Rx Instructions .ROUTE .COMPLEX Qty: 30 0RF Dose Instruction: TAKE 1 TABLET BY MOUTH ONCE DAILY Rx Instructions: TAKE 1 TABLET BY MOUTH ONCE DAILY estradiol 0.01 % (0.1 mg/gram) cream See Rx Instructions vaginal .COMPLEX Qty: 42.5 2RF Rx Instructions: Using finger technique daily for two weeks and then twice weekly vaginally; ergocalciferol (vitamin D2) 50 mcg (2,000 unit) capsule 50 mcg PO DAILY Qty: 30 4RF lisinopril-hydrochlorothiazide 20-25 mg tablet See Rx Instructions .ROUTE .COMPLEX 90 Days Qty: 180 1RF Dose Instruction: TAKE 2 TABLETS BY MOUTH ONCE DAILY Rx Instructions: TAKE 2 TABLETS BY MOUTH ONCE DAILY Stiolto Respimat 2.5-2.5 mcg/actuation mist 2 puff inhalation DAILY 90 Days Qty: 4 2RF carvedilol [Coreg] 6.25 mg tablet 6.25 mg PO BID Qty: 180 1RF Rx Instructions: must administer with a meal/food rosuvastatin [Crestor] 40 mg tablet 40 mg PO DAILY Qty: 30 3RF cholecalciferol (vitamin D3) [Vitamin D3] 50 mcg (2,000 unit) tablet See Rx Instructions .ROUTE .COMPLEX Qty: 30 4RF Dose Instruction: TAKE 1 TABLET 1 TIME EACH DAY Rx Instructions: TAKE 1 TABLET 1 TIME EACH DAY cyclobenzaprine 10 mg tablet See Rx Instructions .ROUTE .COMPLEX Qty: 90 2RF Dose Instruction: TAKE 1 TABLET 3 TIMES NEEDED FOR MUSCLE SPASMS Rx Instructions: TAKE 1 TABLET 3 TIMES NEEDED FOR MUSCLE SPASMS polyethylene glycol 3350 [ClearLax] 17 gram/dose powder See Rx Instructions .ROUTE .COMPLEX Qty: 238 2RF Dose Instruction: MIX 17 GRAMS IN 8 OUNCES OF WATER AND DRINK ONCE A DAY. Rx Instructions: MIX 17 GRAMS IN 8 OUNCES OF WATER AND DRINK ONCE A DAY. Slow-Mag 71.5 mg tablet,delayed release (DR/EC) 71.5 mg PO DAILY Qty: 30 2RF (DME) Dexcom G7 Sensor Device See Rx Instructions .ROUTE .COMPLEX Qty: 3 1RF Dose Instruction: USE TO MEASURE BLOOD SUGAR DIRECTED. REPLACE SENSOR EVERY 10 DAYS. Rx Instructions: USE TO MEASURE BLOOD SUGAR DIRECTED. REPLACE SENSOR EVERY 10 DAYS. Combivent Respimat 20-100 mcg/actuation mist See Rx Instructions .ROUTE .COMPLEX Qty: 4 1RF Dose Instruction: INHALE 1 PUFF EVERY 6 HOURS NEEDED FOR SHORTNESS OF BREATH Rx Instructions: INHALE 1 PUFF EVERY 6 HOURS NEEDED FOR SHORTNESS OF BREATH amlodipine 5 mg tablet See Rx Instructions .ROUTE .COMPLEX Qty: 30 1RF Dose Instruction: TAKE 1 TABLET 1 TIME EACH DAY Rx Instructions: TAKE 1 TABLET 1 TIME EACH DAY omeprazole 40 mg capsule,delayed release(DR/EC) See Rx Instructions .ROUTE .COMPLEX Qty: 90 1RF Dose Instruction: TAKE 1 CAPSULE 1 TIME EACH DAY Rx Instructions: TAKE 1 CAPSULE 1 TIME EACH DAY insulin glargine [Lantus Solostar U-100 Insulin] 100 unit/mL (3 mL) insulin pen See Rx Instructions .ROUTE .COMPLEX Qty: 15 1RF Dose Instruction: INJECT 40 UNITS UNDER THE SKIN AT BEDTIME FOR DIABETES Rx Instructions: INJECT 40 UNITS UNDER THE SKIN AT BEDTIME FOR DIABETES Jardiance 10 mg tablet See Rx Instructions .ROUTE .COMPLEX Qty: 30 1RF Dose Instruction: TAKE 1 TABLET 1 TIME EACH DAY Rx Instructions: TAKE 1 TABLET 1 TIME EACH DAY cholecalciferol (vitamin D3) 1,250 mcg (50,000 unit) capsule See Rx Instructions .ROUTE .COMPLEX Qty: 17 0RF Dose Instruction: TAKE 1 CAPSULE 1 TIME EACH WEEK Rx Instructions: TAKE 1 CAPSULE 1 TIME EACH WEEK ipratropium-albuterol 0.5 mg-3 mg(2.5 mg base)/3 mL solution for nebulization 3 ml inhalation Q4HP PRN (Reason: Shortness Of Breath) Rx Instructions: INHALE THE CONTENTS OF 1 VIAL VIA NEBULIZER EVERY 4-6 HOURS NEEDED FOR JAYLA RTNESS OF BREATH OR WHEEZING Referrals Follow up/Referrals: Stephen Carmona APRN [Primary Care Provider] - See instructions Activity Restrictions/Add. Instructions Additional Instructions/Restrictions: Drink plenty of fluids. Take tylenol or ibuprofen for pain or fever. Take the medications as directed. Follow up with your regular doctor. GO TO THE ER FOR ANY WORSENING SYMPTOMS Don't start the oral steroids (medrol dose pack) until tomorrow since you had the shot here The cough medication (promethazine dm) will make you drowsy, so don't drive or operate heavy machinery after taking it. Clinical Impressions Clinical Impression: COPD exacerbation Instructions Patient Instructions: Chronic Obstructive Pulmonary Disease, Ceftriaxone Injection, Dexamethasone Injection Print Language Print Language: Ukrainian Discharge ED Provider: Musa Dumont [facility] [place] HPI General Stated complaint: head, chest congestion, cough, pain in ribs Mode of Arrival: Ambulatory Source of Information: Patient Time Seen by Provider: 07/31/24 10:05 Description of Symptoms (Recalled from Triage Doc. by RN): HEAD COLD, BAD COUGH, RIB PAIN X3 WEEKS HEENT Symptoms (Recalled from RN notes): No Resp Symptoms (Recalled from RN notes): Yes Skin Symptoms (Recalled from RN notes): No MS Symptoms (Recalled from RN notes): Yes Functional Status (Recalled from RN notes): WNL Related Data Home Medications ?Medication ?Instructions ?Recorded ?Confirmed ipratropium 0.5 mg-albuterol 3 mg 3 ml inhalation Q4HP PRN Shortness 11/09/23 05/20/24 (2.5 mg base)/3 mL nebulization Of Breath soln blood-glucose meter (FreeStyle #1 ea 11/27/23 05/20/24 Lite Meter kit) lancets 28 gauge (FreeStyle #100 ea 11/27/23 05/20/24 Lancets) pen needle, diabetic 31 gauge x #1,200 ea 11/27/23 05/20/2409/14 (BD Ultra-Fine Mini Pen Needle) Previous Rx's ?Medication ?Instructions ?Recorded blood sugar diagnostic (Blood #50 ea 11/15/23 Glucose Test strips) metformin 1,000 mg tablet 1,000 mg PO BIDWMEAL 30 days #60 11/15/23 tabs pen needle, diabetic 31 gauge x #100 ea 11/15/2307/05 aspirin 81 mg tablet,delayed 81 mg PO DAILY #90 tabs 11/22/23 release (Adult Aspirin Regimen) ergocalciferol (vitamin D2) 50 mcg 50 mcg PO DAILY #30 caps 11/27/23 (2,000 unit) capsule blood-glucose meter,continuous #1 ea 12/06/23 (Dexcom G7 Metal Molder) miscellaneous medical supply #1 ea 01/22/24 (Blood Pressure Cuff) nicotine (polacrilex) 2 mg gum 2 mg buccal Q2H Tobacco abuse #396 01/22/24 ea estradiol 0.01% (0.1 mg/gram) See Rx Instructions vaginal 02/11/24 vaginal cream .COMPLEX #42.5 grams oxybutynin chloride 10 mg See Rx Instructions .Route 02/11/24 tablet,extended release 24 hr .COMPLEX #30 tabs lisinopril 20 See Rx Instructions .Route 03/25/24 mg-hydrochlorothiazide 25 mg tablet .COMPLEX 90 days #180 tabs tiotropium 2.5 mcg-olodaterol 2.5 2 puff inhalation DAILY 90 days #4 03/25/24 mcg/actuation mist for inhalation grams (Stiolto Respimat) carvedilol 6.25 mg tablet (Coreg) 6.25 mg PO BID #180 tabs 03/31/24 rosuvastatin 40 mg tablet (Crestor) 40 mg PO DAILY #30 tabs 04/24/24 cholecalciferol (vitamin D3) 50 See Rx Instructions .Route 05/22/24 mcg (2,000 unit) tablet (Vitamin .COMPLEX #30 tabs D3) cyclobenzaprine 10 mg tablet See Rx Instructions .Route 06/18/24 .COMPLEX #90 tabs polyethylene glycol 3350 17 See Rx Instructions .Route 06/18/24 gram/dose oral powder (ClearLax) .COMPLEX #238 grams magnesium chloride 71.5 mg 71.5 mg PO DAILY #30 tabs 07/04/24 (magnesium chloride) tablet,delayed release (Slow-Mag) amlodipine 5 mg tablet See Rx Instructions .Route 07/17/24 .COMPLEX #30 tabs blood-glucose sensor (Dexcom G7 #3 ea 07/17/24 Sensor device) cholecalciferol (vitamin D3) 1,250 See Rx Instructions .Route 07/17/24 mcg (50,000 unit) capsule .COMPLEX #17 caps empagliflozin 10 mg tablet See Rx Instructions .Route 07/17/24 (Jardiance) .COMPLEX #30 tabs insulin glargine 100 unit/mL (3 See Rx Instructions .Route 07/17/24 mL) subcutaneous pen (Lantus .COMPLEX #15 mL Solostar U-100 Insulin) ipratropium 20 mcg-albuterol 100 See Rx Instructions .Route 07/17/24 mcg/actuation mist for inhalation .COMPLEX #4 grams (Combivent Respimat) omeprazole 40 mg capsule,delayed See Rx Instructions .Route 01/16/25 release .COMPLEX #90 caps amoxicillin 875 mg-potassium 1 tab PO Q12H #20 tabs 07/31/24 clavulanate 125 mg tablet benzonatate 100 mg capsule 100 mg PO TIDP PRN Cough #30 caps 07/31/24 methylprednisolone 4 mg tablets in 4 mg PO DIRECTED 6 days #21 tabs 07/31/24 a dose pack promethazine-DM 6.25 mg-15 mg/5 mL 5 ml PO Q6H PRN Cough #240 mL 07/31/24 oral syrup Allergies Allergy/AdvReac Type Severity Reaction Status Date / Time NSAIDS (Non-Steroidal Allergy Intermediate Verified 05/20/24 14:47 Anti-Inflamma (NSAIDS (NON-STEROIDAL ANTI-INFLAMMA) codeine (CODEINE) Allergy Unknown Verified 05/20/24 14:47 tramadol (TRAMADOL) Allergy Unknown Verified 05/20/24 14:47 Milk Containing Products Allergy Verified 05/20/24 14:47 (Dairy) (Milk Containing Products) Worker's Comp Is this a Worker's Comp case?: No [facility] Disclaimer: The information contained in this section may have been updated after the patient was seen, as this information can be updated by other users. Medical History Hyperlipidemia Abnormal nuclear cardiac imaging test Diabetes mellitus Abnormal chest CT Encounter for screening for malignant neoplasm of lung COPD mixed type Smoking greater than 30 pack years Urinary tract infection Pneumonia History of gastroesophageal reflux (GERD) Neuropathy Hepatitis C Asthma COPD (chronic obstructive pulmonary disease) HTN (hypertension), benign Surgical History History of surgery NOSE SX X3 History of cholecystectomy H/O removal of cyst Family History Other Asthma Bleeding disorder Coronary artery disease Diabetes Heart attack Hyperlipidemia Hypertension Stroke Social History Smoking Status: Current some day smoker tobacco type: cigarettes packs per day: 1 years smoked: 50 alcohol intake: never current occupational status: unemployed Travel in the last 8 weeks: None caffeine: Yes ROS Obtained: Yes All systems reviewed & no additional complaints except as documented Constitutional Constitutional: Reports chills and Reports fever(s) Eyes Eyes: Denies eye discharge ENT Ears, Nose, Mouth, and Throat: Reports as per HPI Cardiovascular Cardiovascular: Denies chest pain Respiratory Respiratory: Denies shortness of breath, Reports chest congestion, Reports cough, Denies stridor and Reports wheezing Gastrointestinal Gastrointestingal: Reports nausea; Denies abdominal pain, constipation, cramping, diarrhea or vomiting Musculoskeletal Musculoskeletal: Denies arthralgias Integumentary/Breasts Skin/Breast: Denies rash Neurologic Neurologic: Denies paresthesias Allergic/Immunologic Allergic/Immunologic: Reports wheezing Physical Exam General General appearance: alert and in no apparent distress Eye Eye exam: Present normal appearance, PERRL and EOMI ENT ENT exam: Present mucous membranes moist and normal external ear exam Expanded ENT Exam External ear exam: Present normal external inspection TM/Canal exam: Bilateral TM: erythema and bulging Nose exam: Absent sinus tenderness Nasal speculum exam: Bilateral: normal Mouth exam: Present normal external inspection; Absent drooling Teeth exam: Present normal inspection Throat exam: Present tonsillar erythema and tonsillomegaly Neck Neck exam: Present normal inspection, full ROM and trachea midline; Absent tenderness, lymphadenopathy or thyromegaly Chest Chest inspection: Present normal inspection and symmetric chest wall rise; Absent tenderness or rash Respiratory Respiratory exam: Present normal lung sounds bilaterally; Absent respiratory distress, wheezes, stridor or accessory muscle use Cardiovascular Cardiovascular exam: Present regular rate, normal rhythm and normal heart sounds Abdominal Exam Abdominal exam: Present soft; Absent distention, tenderness, guarding, rebound or rigidity Extremities Exam Extremities exam: Present normal inspection, full ROM and normal capillary refill; Absent tenderness or calf tenderness Back Exam Back exam: Present normal inspection and full ROM; Absent tenderness Neurological Exam Neurological exam: Present alert and oriented X3 Psychiatric Psychiatric exam: Present normal affect and normal mood Skin Skin exam: Present warm, dry, intact and normal color Lymphatic Lymphatic Findings: no adenopathy Medical Decision Making Medical Records Medical records reviewed: No I reviewed the patient's medical records. Screening: Per USPSTF and CDC recommendations, given the prevalence of disease in our region, it is our hospital?s policy to screen for HIV and viral Hepatitis for all patients aged 18 and over and those with ongoing risk factors. Cruz Inquiry Pt receiving controlled substance: No Vital Signs: 07/31/24 10:02 Temperature 98.3 F Temperature Source Oral Pulse Rate [Left Radial] 81 Respiratory Rate 18 Blood Pressure [Left Arm] 126/76 Blood Pressure Mean [Left Arm] 92 02 Sat by Pulse Oximetry 92 L Oxygen Delivery Method Room Air Lab Data Lab results reviewed: Yes I reviewed the patient's lab results.
[2024-07-31] MEDS: cefTRIAXone 1GM VIAL 1 GM IM (10:41)
[2024-07-31] MEDS: DEXAMETHASONE 4MG/ML 1ML VIAL 8 MG IM (10:41)
[2024-07-31] MEDS: LIDOCAINE 1% 5ML PF VIAL IM (10:41)
[2024-07-31 11:20] LABS: Coronavirus 19, PCR Not Detected (NotDetected); Influenza A, PCR Not Detected (NotDetected); Influenza B, PCR Not Detected (NotDetected)
[2024-07-31 11:25] VITALS: BP 126/76; PULSE 81; RESP 18; TEMP 36.8
== END 2024-07-31 11:25 | disposition home or self-care (01) ==
PROVIDERS: Emergency Provider Nurse Practitioner Family; PCP Nurse Practitioner Family
DX: J44.1 Chronic obstructive pulmonary disease with (acute) exacerbation (principal); R11.2 Nausea with vomiting, unspecified
CPT/HCPCS: 87636; 99212; G0381; J0696; J1100

== ENCOUNTER 2024-12-09 10:14 | Outpatient (CLI) | payer MEDICAID, SELFPAY ==
[2024-12-09 18:47] LABS: Basophils # 0.1 K/mm3 (0-0.2); Basophils % 0.7 % (0.1-2.0); Eosinophils # 0.5 Kmm3 (0.0-0.4); Eosinophils % 4.5 % (0.1-12.0); Hematocrit 40.9 % (37.0-47.0); Hemoglobin 12.6 g/dL (12.2-16.2); Immature Granulocytes # 0.05 10^3uL; Immature Granulocytes % 0.4 %; Lymphocytes # 1.8 K/mm3 (0.7-4.5); Lymphocytes % 15.9 % (10-50); Mean Corpuscular HGB Conc 30.8 g/dL (31.8-35.4); Mean Corpuscular Hemoglobin 25.7 pg (27.0-31.2); Mean Corpuscular Volume 83.5 fl (81-99); Monocytes # 0.8 K/mm3 (0.1-1.0); Monocytes % 7.4 % (1.7-9.3); Neutrophils # 8.1 K/mm3 (1.8-7.8); Neutrophils % 71.1 % (37.0-80.0); Nucleated Red Blood Cells # 0 10^3/uL; Nucleated Red Blood Cells % 0 %; Platelet Count 391 K/mm3 (142-424); Red Cell Distribution Width 15.4 % (11.5-17.5); Red Cell Distribution Width-SD 46.5 fL; White Blood Count 11.4 K/mm3 (4.8-10.8)
[2024-12-09 18:53] LABS: Creatinine,Urine Random 47 mg/dL (Not Estab.)
[2024-12-09 19:00] LABS: Microalbumin/Creatinine Ratio 51.9
[2024-12-09 19:26] LABS: Alanine Aminotransferase 21 U/L (12-78); Albumin Level 4.4 g/dl (3.5-5.0); Albumin/Globulin Ratio 1.8 (1.1-1.8); Alkaline Phosphatase 68 U/L (38-126); Anion Gap 10.1 mEq/L (5-15); Aspartate Amino Transferase 27 U/L (14-36); Bilirubin,Total 0.3 mg/dl (0.2-1.3); Blood Urea Nitrogen 19 mg/dl (7-17); Calcium 9.6 mg/dl (8.4-10.2); Carbon Dioxide 33 mmol/L (22.0-30.0); Chloride 93 mmol/L (98-107); Cholesterol 103 mg/dl (140-200); Estimated Glomerular Filt Rate 45 ml/min (>60); GFR (African American) 55 ML/MIN (>60); Globulin 2.5 g/dL (1.3-3.2); Glucose 76 mg/dl (74-100); HDL Cholesterol 34 mg/dl (40-60); Potassium 4.1 mmoL/L (3.5-5.1); Sodium 132 mmol/L (136-145); Total Protein,Serum 6.9 g/dl (6.3-8.2); Triglycerides 157 mg/dl (30-150); VLDL Cholesterol 31 mg/dL (0-40)
[2024-12-09 19:37] LABS: Direct LDL Cholesterol 34.87 mg/dL (100-129)
[2024-12-09 19:46] LABS: 25-OH Vitamin D, Total > 126 ng/mL (30-100)
[2024-12-09 19:55] LABS: Thyroid Stimulating Hormone 2.36 uIU/mL (0.465-4.68)
[2024-12-09 19:57] LABS: Hemoglobin A1C 5.9 % (4.0-6.0)
== END 2024-12-09 23:59 | disposition home or self-care (01) ==
LOC: LAB.DROPOF 12-10 11:43
PROVIDERS: PCP Nurse Practitioner Family; Visit Provider Nurse Practitioner Family
DX: E78.2 Mixed hyperlipidemia (principal); E11.9 Type 2 diabetes mellitus without complications; Z79.4 Long term (current) use of insulin
CPT/HCPCS: 80053; 80061; 82043; 82306; 82570; 83036; 84443; 85025

== ENCOUNTER 2025-01-05 12:09 | Emergency (ER) | payer MEDICAID, SELFPAY ==
[2025-01-05 12:10] VITALS: BP 145/67; PULSE 73; RESP 18; TEMP 36.7; O2SAT 96; BMI 31.8
--- NOTE | 2025-01-05 12:22 | ED_ITS ---
<Statement entered by Carrie Alcantar DO - 01/05/25 15:44> I was consulted by the GERRY, and we discussed the complexity of the problems being addressed. I approved the treatment and management plan for this patient's care in the emergency department, thus performing a substantive portion of the medical decision making. Carrie Alcantar DO Discharge Plan Disposition Patient Disposition: Home, Self-Care Condition: Good Prescriptions Prescriptions: No Action (DME) lancets [FreeStyle Lancets] 28 gauge misc See Rx Instructions .ROUTE .MEDSUPPLY Qty: 100 Patient Comments: USE 1 LANCET TO CHECK GLUCOSE ONCE DAILY Rx Instructions: As directed (DME) blood-glucose meter [FreeStyle Lite Meter] Kit See Rx Instructions .ROUTE .MEDSUPPLY Qty: 1 Patient Comments: USE TO CHECK GLUCOSE ONCE DAILY Rx Instructions: As directed (DME) Blood Glucose Test Strip See Rx Instructions .ROUTE .MEDSUPPLY Qty: 50 2RF Rx Instructions: Twice daily (DME) pen needle, diabetic 31 gauge x 1/4 needle See Rx Instructions .Route Qty: 100 1RF Rx Instructions: As directed (DME) Dexcom G7 Robot Operator Misc See Rx Instructions .Route Qty: 1 0RF Rx Instructions: As directed (DME) Blood Pressure Cuff Misc See Rx Instructions .Route Qty: 1 0RF Rx Instructions: Daily miconazole nitrate 2 % cream 1 applic topical BID Qty: 28 1RF amlodipine 5 mg tablet See Rx Instructions .ROUTE .COMPLEX Qty: 90 3RF Dose Instruction: TAKE 1 TABLET 1 TIME EACH DAY Rx Instructions: TAKE 1 TABLET 1 TIME EACH DAY estradiol 0.01 % (0.1 mg/gram) cream See Rx Instructions vaginal .COMPLEX Qty: 42.5 2RF Rx Instructions: Using finger technique daily for two weeks and then twice weekly vaginally; insulin glargine [Lantus Solostar U-100 Insulin] 100 unit/mL (3 mL) insulin pen See Rx Instructions .ROUTE .COMPLEX Qty: 15 3RF Dose Instruction: INJECT 40 UNITS UNDER THE SKIN AT BEDTIME FOR DIABETES Rx Instructions: INJECT 45 UNITS UNDER THE SKIN AT BEDTIME FOR DIABETES ergocalciferol (vitamin D2) 50 mcg (2,000 unit) capsule 50 mcg PO DAILY Qty: 30 4RF (DME) pen needle, diabetic [BD Ultra-Fine Mini Pen Needle] 31 gauge x 3/16 needle See Rx Instructions .ROUTE .COMPLEX Qty: 100 3RF Dose Instruction: USE TO INJECT INSULIN 1 TIME EACH DAY Rx Instructions: USE TO INJECT INSULIN 1 TIME EACH DAY (DME) Dexcom G7 Sensor Device See Rx Instructions .ROUTE .COMPLEX Qty: 3 3RF Dose Instruction: USE TO MEASURE BLOOD SUGAR DIRECTED. REPLACE SENSOR EVERY 10 DAYS. Rx Instructions: USE TO MEASURE BLOOD SUGAR DIRECTED. REPLACE SENSOR EVERY 10 DAYS. Combivent Respimat 20-100 mcg/actuation mist See Rx Instructions .ROUTE .COMPLEX Qty: 4 3RF Dose Instruction: INHALE 1 PUFF EVERY 6 HOURS NEEDED FOR SHORTNESS OF BREATH Rx Instructions: INHALE 1 PUFF EVERY 6 HOURS NEEDED FOR SHORTNESS OF BREATH polyethylene glycol 3350 [ClearLax] 17 gram/dose powder See Rx Instructions .ROUTE .COMPLEX Qty: 238 3RF Dose Instruction: MIX 17 GRAMS IN 8 OUNCES OF WATER AND DRINK ONCE A DAY. Rx Instructions: MIX 17 GRAMS IN 8 OUNCES OF WATER AND DRINK ONCE A DAY. Jardiance 10 mg tablet See Rx Instructions .ROUTE .COMPLEX Qty: 30 3RF Dose Instruction: TAKE 1 TABLET 1 TIME EACH DAY Rx Instructions: TAKE 1 TABLET 1 TIME EACH DAY cyclobenzaprine 10 mg tablet See Rx Instructions .ROUTE .COMPLEX Qty: 90 3RF Dose Instruction: TAKE 1 TABLET 3 TIMES NEEDED FOR MUSCLE SPASMS Rx Instructions: TAKE 1 TABLET 3 TIMES NEEDED FOR MUSCLE SPASMS lisinopril-hydrochlorothiazide 20-25 mg tablet See Rx Instructions .ROUTE .COMPLEX Qty: 180 3RF Dose Instruction: TAKE 2 TABLETS 1 TIME EACH DAY Rx Instructions: TAKE 2 TABLETS 1 TIME EACH DAY Stiolto Respimat 2.5-2.5 mcg/actuation mist 2 puff inhalation DAILY 90 Days Qty: 4 2RF omeprazole 40 mg capsule,delayed release(DR/EC) See Rx Instructions .ROUTE .COMPLEX Qty: 7 0RF Dose Instruction: TAKE 1 CAPSULE 1 TIME EACH DAY Rx Instructions: TAKE 1 CAPSULE 1 TIME EACH DAY cholecalciferol (vitamin D3) 1,250 mcg (50,000 unit) capsule See Rx Instructions .ROUTE .COMPLEX Qty: 17 0RF Dose Instruction: TAKE 1 CAPSULE 1 TIME EACH WEEK Rx Instructions: TAKE 1 CAPSULE 1 TIME EACH WEEK sodium,potassium,mag sulfates [Suprep Bowel Prep Kit] 17.5-3.13-1.6 gram recon soln See Rx Instructions PO .COMPLEX Qty: 354 0RF Rx Instructions: DILUTE; drink full amount early evening before AND next morning at least 4-5 hr before procedure; follow w 960 mL water PO ipratropium-albuterol 0.5 mg-3 mg(2.5 mg base)/3 mL solution for nebulization See Rx Instructions .ROUTE .COMPLEX Qty: 90 2RF Dose Instruction: INHALE CONTENTS OF 1 VIAL USING A NEBULIZER EVERY 4 HOURS NEEDED FOR SHORTNESS OF BREATH OR WHEEZING Rx Instructions: INHALE CONTENTS OF 1 VIAL USING A NEBULIZER EVERY 4 HOURS NEEDED FOR SHORTNESS OF BREATH OR WHEEZING cholecalciferol (vitamin D3) [Vitamin D3] 50 mcg (2,000 unit) tablet See Rx Instructions .ROUTE .COMPLEX Qty: 90 3RF Dose Instruction: TAKE 1 TABLET 1 TIME EACH DAY Rx Instructions: TAKE 1 TABLET 1 TIME EACH DAY magnesium chloride 64 mg tablet,delayed release (DR/EC) See Rx Instructions .ROUTE .COMPLEX Qty: 30 2RF Dose Instruction: TAKE 1 TABLET 1 TIME EACH DAY Rx Instructions: TAKE 1 TABLET 1 TIME EACH DAY rosuvastatin 40 mg tablet See Rx Instructions .ROUTE .COMPLEX Qty: 90 0RF Dose Instruction: TAKE 1 TABLET 1 TIME EACH DAY Rx Instructions: TAKE 1 TABLET 1 TIME EACH DAY peg 3350-electrolytes [Golytely] 236-22.74-6.74 -5.86 gram recon soln 240 ml PO Q10M Qty: 4000 0RF Rx Instructions: at 6pm day before surgery take first dose. After mixing prep as directed, drink half of the gallon by drinking 8 ounces, or 1 cup, every 15 mins until half is remaining. refrigerate the remaining and continue clear liquids till midnight. 5-6 hours before exam, take the second dosage, 8oz every 15 mins till gone. carvedilol 6.25 mg tablet See Rx Instructions .ROUTE .COMPLEX Qty: 180 2RF Dose Instruction: TAKE 1 TABLET 2 TIMES EACH DAY WITH FOOD Rx Instructions: TAKE 1 TABLET 2 TIMES EACH DAY WITH FOOD metformin 1,000 mg tablet 1,000 mg PO BIDWMEAL 30 Days Qty: 180 3RF oxybutynin chloride 10 mg tablet extended release 24hr See Rx Instructions .ROUTE .COMPLEX Qty: 90 1RF Dose Instruction: TAKE 1 TABLET 1 TIME EACH DAY Rx Instructions: TAKE 1 TABLET 1 TIME EACH DAY Referrals Follow up/Referrals: Stephen Carmona APRN [Primary Care Provider, Family Practice] - See instructions Activity Restrictions/Add. Instructions Additional Instructions/Restrictions: As we discussed please keep your area clean and dry for 7 to 10 days. The Steri-Strips and glue will fall off on their own. Please do not peel them off. If you have any redness drainage increasing pain or swelling follow-up with your PCP return to the ER as needed. Clinical Impressions Clinical Impression: Laceration of left thumb Qualifiers: Encounter type: initial encounter Damage to nail status: without damage Foreign body presence: without foreign body Qualified Code(s): S61.012A - Laceration without foreign body of left thumb without damage to nail, initial encounter Print Language Print Language: Setswana Discharge ED Provider: Carrie Alcantar General Adult HPI General Chief complaint: Wound/Laceration Stated complaint: L Thumb Laceration Time Seen by Provider: 01/05/25 12:22 History of Present Illness HPI narrative: Patient presents for left thumb laceration. Patient was cutting potatoes and cut the medial aspect of her left thumb distally. Patient is neurovascularly intact has full range of motion. Related Data Home Medications ?Medication ?Instructions ?Recorded ?Confirmed blood-glucose meter (FreeStyle #1 ea 11/27/23 12/09/24 Lite Meter kit) lancets 28 gauge (FreeStyle #100 ea 11/27/23 12/09/24 Lancets) Previous Rx's ?Medication ?Instructions ?Recorded blood sugar diagnostic (Blood #50 ea 11/15/23 Glucose Test strips) pen needle, diabetic 31 gauge x #100 ea 11/15/2307/05 ergocalciferol (vitamin D2) 50 mcg 50 mcg PO DAILY #30 caps 11/27/23 (2,000 unit) capsule blood-glucose,pool lifeguard,cont #1 ea 12/06/23 (Dexcom G7 Robot Operator) miscellaneous medical supply #1 ea 01/22/24 (Blood Pressure Cuff) estradiol 0.01% (0.1 mg/gram) See Rx Instructions vagi nal 02/11/24 vaginal cream .COMPLEX #42.5 grams pen needle, diabetic 31 gauge x #100 ea 08/18/2409/14 (BD Ultra-Fine Mini Pen Needle) blood-glucose sensor (Dexcom G7 #3 ea 09/15/24 Sensor device) cyclobenzaprine 10 mg tablet See Rx Instructions .Rout e 09/15/24 .COMPLEX #90 tabs empagliflozin 10 mg tablet See Rx Instructions .Route 09/15/24 (Jardiance) .COMPLEX #30 tabs ipratropium 20 mcg-albuterol 100 See Rx Instructions . Route 09/15/24 mcg/actuation mist for inhalation .COMPLEX #4 grams (Combivent Respimat) lisinopril 20 See Rx Instructions .Route 0 09/15/24 mg-hydrochlorothiazide 25 mg tablet .COMPLEX #180 tabs polyethylene glycol 3350 17 See Rx Instructions .Route 09/15/24 gram/dose oral powder (ClearLax) .COMPLEX #238 grams tiotropium 2.5 mcg-olodaterol 2.5 2 puff inhalation DA DENY 90 days #4 09/15/24 mcg/actuation mist for inhalation grams (Stiolto Respimat) cholecalciferol (vitamin D3) 1,250 See Rx Instructions .Route 11/13/24 mcg (50,000 unit) capsule .COMPLEX #17 caps omeprazole 40 mg capsule,delayed See Rx Instructions . Route 11/13/24 release .COMPLEX #7 caps sodium,potassium,mag sulfates 17.5 See Rx Instructions PO .COMPLEX 11/19/24 gram-3.13 gram-1.6 gram oral soln #354 mL (Suprep Bowel Prep Kit) amlodipine 5 mg tablet See Rx Instructions .Route 0 11/25/24 .COMPLEX #90 tabs miconazole nitrate 2 % topical 1 applic topical BID #2 8 grams 11/25/24 cream cholecalciferol (vitamin D3) 50 See Rx Instructions .R oute 11/28/24 mcg (2,000 unit) tablet (Vitamin .COMPLEX #90 tabs D3) ipratropium 0.5 mg-albuterol 3 mg See Rx Instructions .Route 11/28/24 (2.5 mg base)/3 mL nebulization .COMPLEX #90 mL soln magnesium chloride 64 mg See Rx Instructions .Route 0 11/28/24 (magnesium chloride) .COMPLEX #30 tabs tablet,delayed release rosuvastatin 40 mg tablet See Rx Instructions .Route 0 11/28/24 .COMPLEX #90 tabs peg 3350-electrolytes 236 240 ml PO Q10M colonscopy #4 ,000 mL 12/01/24 gram-22.74 gram-6.74 gram-5.86 gram solution (Golytely) insulin glargine 100 unit/mL (3 See Rx Instructions .R oute 12/09/24 mL) subcutaneous pen (Lantus .COMPLEX #15 mL Solostar U-100 Insulin) carvedilol 6.25 mg tablet See Rx Instructions .Route 0 12/18/24 .COMPLEX #180 tabs metformin 1,000 mg tablet 1,000 mg PO BIDWMEAL 30 days #180 12/18/24 tabs oxybutynin chloride 10 mg See Rx Instructions .Route 0 01/01/25 tablet,extended release 24 hr .COMPLEX #90 tabs Allergies Allergy/AdvReac Type Severity Reaction Status Date / Time NSAIDS (Non-Steroidal Allergy Intermediate Verified 12/09/24 09:22 Anti-Inflamma (NSAIDS (NON-STEROIDAL ANTI-INFLAMMA) codeine (CODEINE) Allergy Unknown Verified 12/09/24 09:22 tramadol (TRAMADOL) Allergy Unknown Verified 12/09/24 09:22 Milk Containing Products Allergy Verified 12/09/24 09:22 (Dairy) (Milk Containing Products) [facility] Disclaimer: The information contained in this section may have been updated after the patient was seen, as this information can be updated by other users. Medical History Hyperlipidemia Abnormal nuclear cardiac imaging test Diabetes mellitus Abnormal chest CT Encounter for screening for malignant neoplasm of lung COPD mixed type Smoking greater than 30 pack years Urinary tract infection Pneumonia History of gastroesophageal reflux (GERD) Neuropathy Hepatitis C Asthma COPD (chronic obstructive pulmonary disease) HTN (hypertension), benign Surgical History History of surgery NOSE SX X3 History of cholecystectomy H/O removal of cyst Family History Other Asthma Bleeding disorder Coronary artery disease Diabetes Heart attack Hyperlipidemia Hypertension Stroke Social History Smoking Status: Current every day smoker tobacco type: cigarettes packs per day: 1 years smoked: 50 alcohol intake: never current occupational status: unemployed Travel in the last 8 weeks?: None caffeine: Yes Have you lived/traveled outside [place] in past 30 days?: No Contact w/someone who lives/traveled outside [place] past 30 days?: No Exposure to someone with infectious disease in past 14 days?: No Do you have a fever (greater than 100.4 F or 38 C)?: No Have you tested positive for COVID-19?: No Exposed to someone with COVID-19 in past 14 days?: No Do you have a sore throat?: No Do you have a cough?: No Do you have any weakness?: No Do you have any diarrhea?: No Are you experiencing any unusual bleeding?: No Do you have any muscle aches/pain?: No Do you have any abdominal pain?: No Are you experiencing loss of taste or smell?: No Other Medical History Have you received the Flu Vaccine for this season: No Have you received the Pneumonia Vaccine: No ROS Obtained: Yes Systems reviewed as appropriate & no additional complaints except as documented Physical Exam General General appearance: alert and in no apparent distress Respiratory Respiratory exam: Present normal lung sounds bilaterally Cardiovascular Cardiovascular exam: Present regular rate Neurological Exam Neurological exam: Present alert and oriented X3 Medical Decision Making Medical Records Screening: Per USPSTF and CDC recommendations, given the prevalence of disease in our region, it is our hospital?s policy to screen for HIV and viral Hepatitis for all patients aged 18 and over and those with ongoing risk factors. Cruz Inquiry Pt receiving controlled substance: No Vital Signs: 01/05/25 12:10 01/05/25 12:59 Temperature 98.1 F 98.0 F Temperature Source Oral Oral Pulse Rate 71 Pulse Rate [Radial] 73 Respiratory Rate 18 18 Blood Pressure 143/68 H Blood Pressure [Right Arm] 145/67 H Blood Pressure Mean [Right Arm] 93 Blood Pressure Source Automatic Cuff Blood Pressure Source [Right Arm] Automatic Cuff Blood Pressure Position Sitting Blood Pressure Position [Right Arm] Sitting 02 Sat by Pulse Oximetry 96 Oxygen Delivery Method Room Air Room Air Orders (Tests/Meds): ED MEDICATIONS Discontinued Medications Generic Name Dose Route Start Last Admin Trade Name Freq PRN Reason Stop Dose Admin Tetanus/Reduced Diphtheria/Acell Pertussis 0.5 ml 01/05/25 12:37 01/05/25 12:51 Tet/Diphth/Pert-Adult 0.5ml Syringe IM 01/05/25 12:38 0.5 ml .ONCE ONE Administration Medical Decision Narrative: In summary patient is a 64-year-old female who presents to the emergency department for evaluation of left thumb laceration. Patient is hemodynamically stable upon arrival, afebrile. Physical exam is remarkable for laceration to the medial aspect of her left thumb. It is distal and lateral to the nailbed. She has good cap refills neurovascular intact and full range of motion. Differential diagnosis could include bony injury deep structure involvement versus superficial laceration etc. However initial examination shows that it is superficial and barely penetrates into the subcutaneous tissues. It does not enter the nailbed or the nail and is not at a flexor point. Patient has full range of motion is neurovascularly intact thus no further workup or intervention necessary. Given this I had a shared decision-making succussion with the patient regarding stitches versus glue and Steri-Strips and the risk benefits of both. After opportunity ask questions patient elected to have glue and Steri- Strips which I feel is reasonable and appropriate. Given this wound was repaired with glue and Steri-Strips. Patient is appropriate for discharge with instructions for wound care and strict return precautions. Procedures Laceration Laceration 1: Site: thumb Side (If applicable): left Size (cm): 2 Description: linear Depth: simple, single layer Pre-repair: wound explored, irrigated extensively and deep structures intact Skin layer closed with: Dermabond and other (Steri-Strips) Critical Care Critical Care Time Critical Care Time: No
[2025-01-05] MEDS: TET/DIPHTH/PERT-ADULT 0.5ML SYRINGE 0.5 ML IM (12:51)
[2025-01-05 12:59] VITALS: BP 143/68; PULSE 71; RESP 18; TEMP 36.7; O2SAT 95
== END 2025-01-05 13:00 | disposition home or self-care (01) ==
PROVIDERS: Emergency Provider Emergency Medicine; PCP Nurse Practitioner Family
DX: S61.002A Unspecified open wound of left thumb without damage to nail, initial encounter (principal); W26.0XXA Contact with knife, initial encounter; Z23 Encounter for immunization
CPT/HCPCS: 12001; 90471; 90715; 99283

== ENCOUNTER 2025-02-12 09:30 | Day surgery (SDC) | payer MEDICAID, SELFPAY ==
--- NOTE | 2025-02-11 12:45 | EXP.HP ---
History of Present Illness *Admission Date: 02/12/25 *History of present illness: Mrs. Quiroz is a 64-year-old female who is here for follow-up screening/surveillance colonoscopy. The patient did have a colonoscopy with Dr. Brody Cooley in August 2022 and had several polyps (9 polyps (mucosal prolapse polyps x 7/submucosal leiomyoma x 1 and tubular adenoma x 1)) which were removed. The examination is deemed medically necessary for screening/surveillance colonoscopy. The patient has been seen, interviewed and examined prior to the procedure by both myself and the anesthesia provider. [facility] Disclaimer: The information contained in this section may have been updated after the patient was seen, as this information can be updated by other users. Medical History (Updated 02/12/25 @ 10:13 by Sravani Lawson RN) Endometriosis Hyperlipidemia Abnormal nuclear cardiac imaging test Diabetes mellitus Abnormal chest CT Encounter for screening for malignant neoplasm of lung COPD mixed type Smoking greater than 30 pack years Urinary tract infection Pneumonia History of gastroesophageal reflux (GERD) Neuropathy Hepatitis C Asthma COPD (chronic obstructive pulmonary disease) HTN (hypertension), benign Surgical History History of surgery History of cholecystectomy H/O removal of cyst Family History Other Asthma Bleeding disorder Coronary artery disease Diabetes Heart attack Hyperlipidemia Hypertension Stroke Social History (Updated 02/12/25 @ 10:40 by Bigg Parks CRNA) Smoking Status: Current every day smoker tobacco type: cigarettes packs per day: 1 years smoked: 50 alcohol intake: former substance use type: denies use current occupational status: retired and disabled Travel in the last 8 weeks?: None caffeine: Yes Have you lived/traveled outside US in past 30 days?: No Contact w/someone who lives/traveled outside [place] past 30 days?: No Exposure to someone with infectious disease in past 14 days?: No Do you have a fever (greater than 100.4 F or 38 C)?: No Have you tested positive for COVID-19?: No Exposed to someone with COVID-19 in past 14 days?: No Do you have a sore throat?: No Do you have a cough?: No Do you have any weakness?: No Are you experiencing any nausea/vomitting?: No Do you have any diarrhea?: No Are you experiencing any unusual bleeding?: No Do you have any muscle aches/pain?: No Do you have any abdominal pain?: No Are you experiencing loss of taste or smell?: No Other Medical History Have you received the Flu Vaccine for this season: No Have you received the Pneumonia Vaccine: No Review of Systems Review of Systems Review of systems (narrative): Negative *Cardiovascular Comments: Negative *Gastrointestinal Comments: Negative *Genitourinary Comments: Negative *Musculoskeletal Comments: Negative *Neurologic Comments: Negative Meds Home Medications and Allergies Home Medications ?Medication ?Instructions ?Recorded ?Confirmed ?Type blood sugar diagnostic (Blood #50 ea 11/15/23 02/12/25 Rx Glucose Test strips) pen needle, diabetic 31 gauge x #100 ea 11/15/23 02/12/25 Rx 1/4 blood-glucose meter (FreeStyle #1 ea 11/27/23 02/12/25 History Lite Meter kit) ergocalciferol (vitamin D2) 50 mcg 50 mcg PO DAILY #30 caps 11/27/23 02/12/25 Rx (2,000 unit) capsule lancets 28 gauge (FreeStyle #100 ea 11/27/23 02/12/25 History Lancets) blood-glucose,forest manager,cont #1 ea 12/06/23 02/12/25 Rx (Dexcom G7 Central Service Technician) miscellaneous medical supply #1 ea 01/22/24 02/12/25 Rx (Blood Pressure Cuff) estradiol 0.01% (0.1 mg/gram) See Rx Instructions vaginal 02/11/24 02/12/25 Rx vaginal cream .COMPLEX #42.5 grams pen needle, diabetic 31 gauge x #100 ea 08/18/24 02/12/25 Rx 3/16 (BD Ultra-Fine Mini Pen Needle) lisinopril 20 See Rx Instructions .Route 09/15/24 02/12/25 Rx mg-hydrochlorothiazide 25 mg tablet .COMPLEX #180 tabs cholecalciferol (vitamin D3) 1,250 See Rx Instructions .Route 11/13/24 02/12/25 Rx mcg (50,000 unit) capsule .COMPLEX #17 caps amlodipine 5 mg tablet See Rx Instructions .Route 11/25/24 02/12/25 Rx .COMPLEX #90 tabs miconazole nitrate 2 % topical 1 applic topical BID #28 grams 11/25/24 02/12/25 Rx cream cholecalciferol (vitamin D3) 50 See Rx Instructions .Route 11/28/24 02/12/25 Rx mcg (2,000 unit) tablet (Vitamin .COMPLEX #90 tabs D3) ipratropium 0.5 mg-albuterol 3 mg See Rx Instructions .Route 11/28/24 02/12/25 Rx (2.5 mg base)/3 mL nebulization .COMPLEX #90 mL soln magnesium chloride 64 mg See Rx Instructions .Route 11/28/24 02/12/25 Rx (magnesium chloride) .COMPLEX #30 tabs tablet,delayed release rosuvastatin 40 mg tablet See Rx Instructions .Route 11/28/24 02/12/25 Rx .COMPLEX #90 tabs insulin glargine 100 unit/mL (3 See Rx Instructions .Route 12/09/24 02/12/25 Rx mL) subcutaneous pen (Lantus .COMPLEX #15 mL Solostar U-100 Insulin) carvedilol 6.25 mg tablet See Rx Instructions .Route 12/18/24 02/12/25 Rx .COMPLEX #180 tabs metformin 1,000 mg tablet 1,000 mg PO BIDWMEAL 30 days #180 12/18/24 02/12/25 Rx tabs oxybutynin chloride 10 mg See Rx Instructions .Route 01/01/25 02/12/25 Rx tablet,extended release 24 hr .COMPLEX #90 tabs blood-glucose sensor (Dexcom G7 #3 ea 01/15/25 02/12/25 Rx Sensor device) cyclobenzaprine 10 mg tablet See Rx Instructions .Route 01/15/25 02/12/25 Rx .COMPLEX #90 tabs empagliflozin 10 mg tablet See Rx Instructions .Route 01/15/25 02/12/25 Rx (Jardiance) .COMPLEX #90 tabs ipratropium 20 mcg-albuterol 100 See Rx Instructions .Route 01/15/25 02/12/25 Rx mcg/actuation mist for inhalation .COMPLEX #4 grams (Combivent Respimat) polyethylene glycol 3350 17 See Rx Instructions .Route 01/15/25 02/12/25 Rx gram/dose oral powder (ClearLax) .COMPLEX #238 grams omeprazole 40 mg capsule,delayed See Rx Instructions .Route 01/23/25 02/12/25 Rx release .COMPLEX #30 caps tiotropium 2.5 mcg-olodaterol 2.5 2 puff inhalation DAILY 90 days #4 01/23/25 02/12/25 Rx mcg/actuation mist for inhalation grams (Stiolto Respimat) naproxen sodium 220 mg tablet 220 mg PO Q8H PRN Mild Pain (Scale 02/12/25 02/12/25 History (Aleve) Score 1-4) New Prescriptions to Start Prescriptions: Allergies Allergy/AdvReac Type Severity Reaction Status Date / Time Milk Containing Products Allergy Severe Diarrhea Verified 02/12/25 10:14 (Dairy) (Milk Containing Products) codeine (CODEINE) Allergy Intermediate Rash Verified 02/12/25 10:14 NSAIDS (Non-Steroidal Allergy Intermediate Nausea Verified 02/12/25 10:14 Anti-Inflamma (NSAIDS (NON-STEROIDAL ANTI-INFLAMMA) tramadol (TRAMADOL) Allergy Mild Nausea Verified 02/12/25 10:14 Exam *Routine HEENT Exam Head: Present normocephalic Eye: Present EOMI and PERRL ENT: Present mucous membranes moist *Routine Neck Exam Neck: Present supple *Routine Respiratory Exam Respiratory: Present CTA bilaterally *Routine Cardiovascular Exam Cardiovascular: Present RRR *Routine Abdominal Exam Abdominal: Present soft and normoactive bowel sounds; Absent tenderness *Routine Rectal Exam Rectal:: deferred *Routine Genitalia Exam Genitalia:: deferred *Routine Extremities Exam Extremities: Absent cyanosis, clubbing or edema *Routine Skin Exam Skin: Present warm; Absent rash *Routine Neurological Exam Neurological: Present alert and oriented X3 Assessment and Plan *Assessment and plan (1) Personal history of adenomatous and serrated colon polyps: Status: Acute Category: Medical Code(s): Z86.0101 - Personal history of adenomatous and serrated colon polyps (2) Submucosal leiomyoma of colon: Status: Acute Category: Medical Code(s): D21.4 - Benign neoplasm of connective and other soft tissue of abdomen Plan A/P: 1. Personal history of an adenomatous polyp of colon and submucosal leiomyoma of colon is the preprocedural diagnosis. The patient will be anesthetized/sedated using MAC sedation. The patient has been seen and examined. Cardiac and lung assessment prior to the examination is stable. Proceed with planned screening/surveillance colonoscopy.
[2025-02-12 10:07] VITALS: BMI 32.9
[2025-02-12 10:17] LABS: POC Glucose,Bedside 83 (70-110)
[2025-02-12 10:22] VITALS: BP 141/90; PULSE 91; RESP 17; TEMP 36.3; O2SAT 95
[2025-02-12] MEDS: LACTATED RINGERS 1000ML 1,000 ML 50 ML IV (10:29)
--- NOTE | 2025-02-12 10:39 | EXP.ANES.CKL ---
[facility] Disclaimer: The information contained in this section may have been updated after the patient was seen, as this information can be updated by other users. Medical History (Updated 02/12/25 @ 10:13 by Sravani Lawson RN) Endometriosis Hyperlipidemia Abnormal nuclear cardiac imaging test Diabetes mellitus Abnormal chest CT Encounter for screening for malignant neoplasm of lung COPD mixed type Smoking greater than 30 pack years Urinary tract infection Pneumonia History of gastroesophageal reflux (GERD) Neuropathy Hepatitis C Asthma COPD (chronic obstructive pulmonary disease) HTN (hypertension), benign Surgical History History of surgery History of cholecystectomy H/O removal of cyst Family History Other Asthma Bleeding disorder Coronary artery disease Diabetes Heart attack Hyperlipidemia Hypertension Stroke Social History (Updated 02/12/25 @ 10:13 by Sravani Lawson RN) Smoking Status: Current every day smoker tobacco type: cigarettes packs per day: 1 years smoked: 50 alcohol intake: former substance use type: denies use current occupational status: retired and disabled Travel in the last 8 weeks?: None caffeine: Yes [facility] Anesthesia Checklist Patient Identification Patient Identification: Arm Band and Verbal (Name & ) Structural Data Admitted From: Home Planned Operative Procedure/s: colonoscopy Consent for Planned Operative Procedure(s) Verified: Yes Verified Documents: Surgical Consent NPO Status Verified Time NPO: 00:00 Chart Verification Results Verified: ECG Additional verifications Fingerstick Blood Glucose: 83 Anesthesia Reactions: No Airway Assessment Mallampati Score:: Class II C-Spine Mobility Assessed: Yes TMJ Mobility Assessed: Yes Dentition: Edentulous Neurological Assessment Level of Consciousness: Awake, Alert and Appropriate Hx Seizures: No Numbness or tingling in extremities: No Anesthesia Plan Anesthesia Risk discussed: Yes Anesthesia Plan: Verified ASA Class: III Anesthesia Type: MAC
--- NOTE | 2025-02-12 11:06 | HMH.PROCNOTE ---
[facility] Procedure Note Date: 02/12/25 Time: 11:24 Procedure Note:: Colonoscopy Procedure Report: Colonoscopy with cold snare polypectomy Endoscopist: Siddhartha Wiseman II, MD Referring physician: SABINO Abreu Date of Procedure: February 12, 2025 Equipment: Olympus [id number] adult colonoscope Sedation: MAC sedation Indication: Mrs. Quiroz is a 64-year-old female who is here for follow-up screening/surveillance colonoscopy. The patient did have a colonoscopy with Dr. Brody Cooley in August 2022 and had several polyps (9 polyps (mucosal prolapse polyps x 7/submucosal leiomyoma x 1 and tubular adenoma x 1)) which were removed. The patient does have some chronic constipation, bloating and gassiness. She does take MiraLAX. She reports no rectal bleeding, weight loss or family history of colon cancer. Procedure: Prior to the procedure, a history and physical exam was performed, and patient's medications and allergies were reviewed. The risks, benefits and alternatives of the sedation and procedure were discussed with the patient. All questions were answered and informed consent was obtained. The patient was brought to the procedure room. Patient identification and proposed procedure were verified by the physician and the nurse. The patient was placed in a left lateral decubitus position and the scope was passed under direct vision. Throughout the procedure, the patient's blood pressure, pulse, and oxygen saturations were monitored continuously. The colonoscopy was accomplished without difficulty. The patient tolerated the procedure well. Findings: On digital rectal examination there was normal rectal tone. There were no external hemorrhoids. The colonoscope was introduced through the anal canal to the rectum and advanced to the cecum. The ileocecal valve and appendiceal orifice were identified. The scope was advanced a short distance into the ileum which appeared grossly normal. The scope was then withdrawn into the colon. The cecum, ascending and transverse colon and mucosa were grossly normal. There were scattered diverticuli throughout the descending and sigmoid colon (LEFT colon). There were 2 diminutive polyps (descending x 1 (3 mm) and rectal x 1 (3 mm)). Both of these were removed via cold snare polypectomy. The rectum itself was normal. Upon retroflexion within the rectum there were grade 1-2 internal hemorrhoids. The preparation was excellent throughout with Jay Em Preparation Score of 9. The cecal time was 14 minutes. Impression: 1. Diminutive colonic polyps x 2 2. Left-sided diverticulosis 3. Grade 1-2 internal hemorrhoids Plan: I will follow-up the polyp histology and recommend repeat surveillance colonoscopy again in 5 years. I will begin Candy because of her chronic constipation.
[2025-02-12 11:26] VITALS: BP 127/73; PULSE 83; RESP 16; TEMP 36.3; O2SAT 94
[2025-02-12 11:36] VITALS: BP 126/67; PULSE 77; RESP 18; O2SAT 95
[2025-02-12 11:46] VITALS: BP 131/71; PULSE 71; RESP 18; O2SAT 96
[2025-02-12 11:56] VITALS: BP 122/90; PULSE 76; RESP 16; O2SAT 98
== END 2025-02-12 12:05 | disposition home or self-care (01) ==
PROVIDERS: PCP Nurse Practitioner Family; Visit Provider Internal Medicine Gastroenterology
PROC: 0DJD8ZZ Inspection of Lower Intestinal Tract, Via Natural or Artificial Opening Endoscopic (ICD-10-PCS; CPT 45378; principal; 2025-02-12 10:30)
DX: Z12.11 Encounter for screening for malignant neoplasm of colon (principal); D12.4 Benign neoplasm of descending colon; D12.8 Benign neoplasm of rectum; K57.90 Diverticulosis of intestine, part unspecified, without perforation or abscess without bleeding; K64.0 First degree hemorrhoids; K64.1 Second degree hemorrhoids; Z86.0101 Personal history of adenomatous and serrated colon polyps; J44.9 Chronic obstructive pulmonary disease, unspecified; E11.9 Type 2 diabetes mellitus without complications; I10 Essential (primary) hypertension; E78.5 Hyperlipidemia, unspecified; F17.210 Nicotine dependence, cigarettes, uncomplicated; Z88.6 Allergy status to analgesic agent; Z88.5 Allergy status to narcotic agent; Z79.899 Other long term (current) drug therapy
CPT/HCPCS: 45385; 82962; J2003; J2704; J7120

== ENCOUNTER 2025-04-23 07:43 | Outpatient (CLI) | payer MEDICAID, SELFPAY ==
--- NOTE | 2025-04-23 08:00 | MM_ITS ---
PROCEDURE INFORMATION: Exam: MG Bilateral Screening 3D Mammography Exam date and time: 04/23/2025 7:47 AM Age: 64 years old Clinical indication: Screening examination TECHNIQUE: Imaging protocol: Bilateral Screening tomosynthesis and 2D mammography including computer-aided detection (CAD) when performed. COMPARISON: MG MM DIG SCREENING MAMM BI W/CAD 04/22/2024 3:08 PM FINDINGS: MAMMOGRAPHY: Breast composition: The breasts are almost entirely fatty. Mass: None. Architectural distortion: None. Calcifications: No suspicious calcifications. Asymmetric density: None. Skin thickening: None. Axillary adenopathy: None. IMPRESSION: No mammographic evidence of malignancy. Annual screening is recommended unless otherwise clinically indicated. ASSESSMENT: BI-RADS Category 1: Negative.
== END 2025-04-23 23:59 | disposition home or self-care (01) ==
LOC: RAD 07:43
PROVIDERS: PCP Family Medicine; Visit Provider Nurse Practitioner Family
DX: Z12.31 Encounter for screening mammogram for malignant neoplasm of breast (principal)
CPT/HCPCS: 77063; 77067

== ENCOUNTER 2025-06-10 13:39 | Outpatient (CLI) | payer MEDICAID, SELFPAY ==
--- NOTE | 2025-06-10 14:00 | CT_ITS ---
FINAL REPORT TECHNIQUE: Thin section axial images were obtained from the lung apices to the upper abdomen by computed tomography. Reformatted images were obtained and reviewed. This study was performed with techniques to keep radiation doses al low as reasonably achievable (ALARA). Individualized dose reduction techniques using automated exposure control or adjustment of mA and/or kV according to the patient's size were employed. CLINICAL HISTORY: lung cancer screening smoker 50 years 1ppd copd COMPARISON: 07/10/2023 FINDINGS: CHEST CT LOW DOSE 64-year-old female, current smoker, 87-[id number]-pstn history CTDI vol (mGy): 2.90 DLP (mGy-cm): 96.38 There is no axillary adenopathy. There are calcified left hilar lymph nodes noted. Otherwise, there is no mediastinal or hilar mass or adenopathy. The heart is normal in size. There is a lipoma in the interatrial septum, stable since the prior exam. There is no pericardial or pleural effusion. Lung window images demonstrate no suspicious infiltrate or nodule. Limited images of the upper abdomen are unremarkable. IMPRESSION: Lung-RADS category 1. Recommend 12 month follow up low dose chest CT. Reviewed, Interpreted and Dictated by Mayco Jean MD Transcribed by Cyn Lowe Authenticated and . [facility]
== END 2025-06-10 23:59 | disposition home or self-care (01) ==
LOC: RAD 13:40
PROVIDERS: PCP Family Medicine; Visit Provider Family Medicine
DX: Z12.2 Encounter for screening for malignant neoplasm of respiratory organs (principal); F17.210 Nicotine dependence, cigarettes, uncomplicated; J44.9 Chronic obstructive pulmonary disease, unspecified; I89.8 Other specified noninfective disorders of lymphatic vessels and lymph nodes; D17.79 Benign lipomatous neoplasm of other sites
CPT/HCPCS: 71271